=== PATIENT | female | born 1940 | race Caucasian/White ===

== ENCOUNTER 2016-09-26 17:14 | Inpatient (IN) | payer MEDICARE ==
[~2016-09-26] VITALS: Ht 162.6 cm; Wt 70.1 kg
[~2016-09-26 17:14] MED LIST: ACET325T9 PO; ACET500T68 PO; ALBU1.25 NEB; ALBU2.5V5 NEB; ASPI-630 PO; BUDE0.5A11 NEB; BUDE10.2 IH; BUSP10TA PO; BUSP15TA PO; CHOL500016 PO; CITA40TA5 PO; CLON0.5T3 PO; FLUT16SP21 NS; LISI-334 PO; LORA0.5T PO; MAG30ORA PO; MAGN2400 PO; MELA3TAB2 PO; METH57CR8 TP; MULT1TAB52 PO; OLAN2.5T5 PO; OLAN5TAB5 PO; OMEP20CA9 PO; PANT40TA5 PO; POLY17PO3 PO; QUET25TA5 PO; SERT100T8 PO; TIOT18CA IH
--- NOTE | 2016-09-26 17:27 | ED.ADGEN ---
Past History Past Medical History: Anxiety, Asthma, CHF, COPD, Dementia, Depression, GERD, Hypertension, Other Past Surgical History: Tonsillectomy Smoking: Quit Greater Than 1 Year Alcohol Use: None Drug Use: None Adult General Chief Complaint Chief Complaint Anxiety HPI HPI Patient is a 75 year old female who presents with. She came from [facility] where she's been having some anxiety. She's been excepted as a [facility] unit if she doesn't have any lab abnormalities or other concerns on her exam. She states she has a history of anxiety and she was here in July and was able to then a couple weeks and have her medications adjusted and was discharged. She states the last several weeks she's been having more anxiety. She denies any fevers chills nausea vomiting or cough. She does wear oxygen 24 hours a day as of her COPD. She presents today with her daughter. Review of Systems Review of Systems Constitutional: Denies fever or chills [] Eyes: Denies change in visual acuity, redness, or eye pain [] HENT: Denies nasal congestion or sore throat [] Respiratory: Denies cough or shortness of breath [] Cardiovascular: No additional information not addressed in HPI [] GI: Denies abdominal pain, nausea, vomiting, bloody stools or diarrhea [] : Denies dysuria or hematuria [] Musculoskeletal: Denies back pain or joint pain [] Integument: Denies rash or skin lesions [] Neurologic: Denies headache, focal weakness or sensory changes [] Endocrine: Denies polyuria or polydipsia [] Allergies Allergies Allergies Coded Allergies Type Severity Reaction Last Updated Verified adhesive tape Allergy Intermediate 07/29/16 Yes doxycycline Allergy Intermediate 07/29/16 Yes fexofenadine Allergy Intermediate 07/29/16 Yes hydrochlorothiazide Allergy Intermediate 07/29/16 Yes iodine Allergy Intermediate 07/29/16 Yes ipratropium Allergy Intermediate 07/29/16 Yes levofloxacin Allergy Intermediate 07/29/16 Yes loratadine Allergy Intermediate 07/29/16 Yes piperacillin Allergy Intermediate 07/29/16 Yes sulfadiazine Allergy Intermediate 07/29/16 Yes tazobactam Allergy Intermediate 07/29/16 Yes Physical Exam Physical Exam Constitutional: Well developed, well nourished, no acute distress, non-toxic appearance. [] HENT: Normocephalic, atraumatic, bilateral external ears normal, oropharynx moist, no oral exudates, nose normal. [] Eyes: PERRLA, EOMI, conjunctiva normal, no discharge. [] Neck: Normal range of motion, no tenderness, supple, no stridor. [] Cardiovascular:Heart rate regular rhythm, no murmur [] Lungs & Thorax: Bilateral breath sounds clear to auscultation [] Abdomen: Bowel sounds normal, soft, no tenderness, no masses, no pulsatile masses. [] Skin: Warm, dry, no erythema, no rash. [] Back: No tenderness, no CVA tenderness. [] Extremities: No tenderness, no cyanosis, no clubbing, ROM intact, no edema. [] Neurologic: Alert and interactive, normal motor function, normal sensory function, no focal deficits noted. [] EKG EKG [] Radiology/Procedures Radiology/Procedures [] Course & Med Decision Making Course & Med Decision Making Pertinent Labs and Imaging studies reviewed. (See chart for details) Patient is being checked at Dr. Clayton, labs, x-ray, EKG are pending at this time. Final Impression Final Impression Anxiety Problems: Dragon Disclaimer Dragon Disclaimer This electronic medical record was generated, in whole or in part, using a voice recognition dictation system. MELLISA ALAS MD September 26, 2016 17:27
--- NOTE | 2016-09-26 17:55 | EKG ---
[address] [address] Test Date: 2016-09-26 Test Time: 17:53:44 Pat Name: LEONARDO RIVERA Department: Room: Gender: F Hotel Valet Attendant: : 1940 Requested By: MELLISA ALAS Order Number: [id number] Reading MD: Pierre Hand Measurements Intervals [place] Rate: 83 P: 90 MT: 130 QRS: 20 QRSD: 84 T: 26 QT: 374 QTc: 445 Interpretive Statements SINUS RHYTHM Electronically Signed On 09-28-2016 10:25:31 CDT by Pierre Hand
[2016-09-26 18:33] LABS: BASO % 0 % (0-3); EOS # 0.1 x10^3/uL (0.0-0.7); EOS % 1 % (0-3); HEMATOCRIT 33.6 % (36.0-47.0); HEMOGLOBIN 10.8 g/dL (12.0-15.5); LYMPH % 18 % (24-48); MEAN CORPUSCULAR HEMOGLOBIN 28 pg (25-35); MEAN CORPUSCULAR HGB CONC 32 g/dL (31-37); MEAN CORPUSCULAR VOLUME 86 fL (79-100); MONO % 9 % (0-9); NEUT # 8.1 x10^3uL (1.8-7.7); NEUT % 72 % (31-73); PLATELET COUNT 428 x10^3/uL (140-400); RED BLOOD COUNT 3.93 x10^6/uL (3.50-5.40); RED CELL DISTRIBUTION WIDTH 14.5 % (11.5-14.5); WHITE BLOOD COUNT 11.2 x10^3/uL (4.0-11.0)
[2016-09-26 18:41] LABS: ALBUMIN 3.6 g/dL (3.4-5.0); ALBUMIN/GLOBULIN RATIO 1.3 (1.0-1.7); CALCIUM 8.5 mg/dL (8.5-10.1); CREATININE 0.7 mg/dL (0.6-1.0); GFR 81.1; MAGNESIUM 2.1 mg/dL (1.8-2.4); POTASSIUM 4.7 mmol/L (3.5-5.1); TOTAL BILIRUBIN 0.3 mg/dL (0.2-1.0); TOTAL PROTEIN 6.4 g/dL (6.4-8.2)
[2016-09-26 21:01] LABS: CLARITY,URINE CLEAR; COLOR,URINE STRAW
[2016-09-26 21:02] LABS: BACTERIA,URINE 0 /HPF (0-FEW); BILIRUBIN,URINE NEG (NEG); GLUCOSE,URINE NEG (NEG); NITRITE,URINE NEG (NEG); SQUAMOUS EPITHELIAL CELL,UR OCC /LPF; UROBILINOGEN,URINE 0.2 mg/dL (0.2 mg/dL); WBC,URINE OCC /HPF (0-4)
[2016-09-26 21:05] LABS: AMPHETAMINE/METHAMPHETAMINE NEG (NEG); BARBITURATES NEG (NEG); BENZODIAZEPINES NEG (NEG); CANNABINOIDS NEG (NEG); COCAINE NEG (NEG); METHADONE NEG (NEG); OPIATES NEG (NEG); PHENCYCLIDINE NEG (NEG)
[2016-09-26] MEDS ORDERED: ACETAMINOPHEN 325 MG TABLET PO PRN ×2 (21:15→23:30)
--- NOTE | 2016-09-26 21:36 | ACF ---
Admission Criteria Forms PSYCHIATRIC DISORDERS Clinical Indications for Inpatient Care (Place 'X' for any and all applicable criteria): Ongoing inpatient care may be needed for ANY ONE of the following(1)(2)(3)(4)(6) (7)(8): [ ]I. Danger to self or others not manageable at lower level of care. [ ]II. Grave disability (eg, inability to perform self care necessary at lower level of care) [ ]III. Agitation or inappropriate behavior interfering with care for primary condition (eg, attempting to discontinue lines or drains prematurely, unable to cooperate with respiratory care) [X ]IV. Severe disability or disorder indicated by ALL of the following: [X ]a) Severe behavioral health disorder-related symptoms or condition indicated by ANY ONE of the following: [ ]i) Severe problem with cognition, memory, judgment, or impulse control [X ]ii) Severe clinical manifestations (eg, hallucinations , delusions, other acute psychotic symptoms, nick, extreme agitation or anxiety) [X ]b) Patient management at lower level of care is not feasible until acute intervention or modification is initiated. Extended stay beyond goal length of stay for the primary condition may be indicated when ANY ONE of the following is present: (1)(2)(3)(4): [ ]a) Patient is a danger to self or others and not manageable at lower level of care. [ ]b) Behavior crisis management, including physical or chemical restraints, is required and is not available at a lower level of care. [ ]c) Behavioral symptoms (e.g., agitation, somnolence, inappropriate behavior) are present, and are not manageable at a lower level of care. [ ]d) Patient cannot understand follow-up treatment and crisis plan. [ ]e) Provider and supports are not sufficiently available at lower level of care. [ ]f) Patient cannot participate (e.g., verify absence of plan for harm) and is in needed of monitoring. The original [facility] [employer] content created by [facility] [employer] has been revised. The portions of the content which have been revised are identified through the use of italic text or in bold, and [facility] has neither reviewed nor approved the modified material. All other unmodified content is copyright [facility]. Please see references footnoted in the original [facility] edition 2016 Admission Criteria Met?: Yes LAVELL CARABALLO September 26, 2016 21:36
[2016-09-26] MEDS ORDERED: GUAI600T47 PO (23:03)
[2016-09-26] MEDS ORDERED: QUET100T PO (23:05)
[2016-09-26] MEDS ORDERED: QUET50TA PO (23:06)
[2016-09-26] MEDS ORDERED: FLUT1DIS5 IH (23:14)
[2016-09-26] MEDS ORDERED: MAGNESIUM HYDROXIDE 2,400 MG/30 ML ORAL.SUSP. PO PRN ×2 (23:30→23:45)
[2016-09-26] MEDS ORDERED: MAG HYDROX/AL HYDROX/SIMETH 30 ML ORAL.SUSP PO PRN (23:30)
[2016-09-26] MEDS ORDERED: METHYL SALICYLATE/MENTHOL TOPICAL OINTMENT 29GM TUBE. TP PRN ×2 (23:45)
[2016-09-26 23:55] VITALS: BP 109/79
[2016-09-27] MEDS: LORazepam 0.5 MG TABLET PO PRN ×3 (00:06→14:40)
[2016-09-27] MEDS: ACETAMINOPHEN 325 MG TABLET PO PRN (00:06)
[2016-09-27] MEDS: ALBUTEROL SULFATE 2.5 MG/3 ML NEBU. NEB PRN ×2 (00:27→05:24)
[2016-09-27 06:33] VITALS: BP 159/63
[2016-09-27] MEDS: busPIRone 10 MG TABLET. PO SCH ×3 (07:56→20:06)
[2016-09-27] MEDS: CHOLECALCIFEROL (VITAMIN D3) 1,000 UNIT TABLET PO SCH (07:56)
[2016-09-27] MEDS: MULTIVITAMIN with MINERAL TABLET. PO SCH (07:57)
[2016-09-27] MEDS: LISINOPRIL 20 MG TABLET PO SCH (07:57)
[2016-09-27] MEDS: ASPIRIN 81 MG TAB.CHEW PO SCH (07:57)
[2016-09-27] MEDS: QUEtiapine 50 MG TABLET. PO SCH ×3 (07:57→18:47)
[2016-09-27] MEDS: POLYETHYLENE GLYCOL 3350 17 GM PACKET. PO SCH (07:58)
--- NOTE | 2016-09-27 08:20 | RAD ---
Portable chest, 09/26/2016: History: Cough Comparison is made to a study from 08/07/2016. The heart size and pulmonary vascularity are within normal limits. There is calcific plaquing of the aorta. There is mild linear atelectasis or scarring in the left base. No pulmonary consolidation is seen. There is no evidence of pleural fluid. IMPRESSION: Mild left basilar linear atelectasis or scarring.
[2016-09-27] MEDS ORDERED: NON FORMULARY ITEM (Albuterol Sulfate (Albuterol Sulfate Neb Soln) 2.5 MG) NEB SCH (09:00)
[2016-09-27] MEDS: BUDESONIDE 0.5 MG/2 ML NEBU NEB SCH ×2 (10:14→21:00)
[2016-09-27] MEDS: ALBUTEROL SULFATE 2.5 MG/3 ML NEBU. NEB SCH ×3 (10:15→20:00)
--- NOTE | 2016-09-27 13:16 | HP ---
ADMIT DATE: 09/27/2016 MEDICAL HISTORY AND PHYSICAL FOR THE [facility] REASON FOR ADMISSION TO THE [facility]: This is a 75-year-old female who just had a recent admit in July 2016 to the [facility]. At this time, she states that she has had increasing anxiety and without any relief. She had stated to the staff that she wished that she would choke on her oxygen tubing. PAST MEDICAL HISTORY: Recent admission to the [facility] in July 2016 for increasing anxiety, delusions, hallucinations, delusions of persecution. Other medical problems include chronic hypoxemic respiratory failure, hypertension, COPD, congestive heart failure, reflux, insomnia, asthma, constipation, frequent falls. PAST SURGICAL HISTORY: Bilateral cataract extraction and correction of a very droopy left eyelid. ALLERGIES: Multiple allergies. ADHESIVE TAPE, DOXYCYCLINE, FEXOFENADINE, HYDROCHLOROTHIAZIDE, IODINE, IPRATROPIUM, LEVOFLOXACIN, LORATADINE, PIPERACILLIN, SULFADIAZINE, TAZOBACTAM. MEDICATIONS: Reviewed and are available on the JUL. She is on significant doses of Seroquel and was just recently on a prednisone taper and is finishing the prednisone taper today. SOCIAL HISTORY: She is a . She lives in a [facility] home. She has 3 children. She used to smoke 1-1/2 packs per day, quit 15 years ago. Denies alcohol use. Used to own a beauty shop. REVIEW OF SYSTEMS: With the exception of anxiety, the patient states the rest of her problems are chronic and not new. She does suffer from occasional constipation. OBJECTIVE: VITAL SIGNS: Blood pressure 159/63, pulse 75, temperature 97.8, O2 sat is 100% on 2 liters. She also had 85% on 2 liters yesterday evening, weight is 160 pounds. GENERAL: A 75-year-old, in no acute distress. HEENT: Her TMs were intact without erythema. Her nose was patent. Her throat was clear. Her eyes were clear and she has evidence of the cataract surgery. NECK: Supple, without adenopathy. There are no carotid bruits. Tongue was midline. Throat was clear. LUNGS: Clear inspiratory and expiratory. CARDIOVASCULAR: Regular rhythm and rate. ABDOMEN: Soft and nontender. EXTREMITIES: Mild edema. MUSCULOSKELETAL: The patient is able to stand, but does not pass to get up and go test. NEUROLOGIC: Cranial nerves were intact. She did follow directions. Mental status, calm and cooperative, fairly good historian. In a short interview, she does not give the impression of having dementia. Reflexes 2+/4. LABORATORY DATA: White blood cell count still slightly elevated at 11.2, hemoglobin 10.8, hematocrit 33.6. Troponin is normal. CO2 slightly elevated. Urinalysis is negative. Drug screen negative. ASSESSMENT: 1. A 75-year-old with severe anxiety 2. Recent prednisone taper, possibly contributing to severe anxiety and nervousness. 3. Chronic hypoxemic respiratory failure. 4. Chronic obstructive pulmonary disease. 5. Hypertension. 6. History of congestive heart failure. 7. Reflux. 8. Asthma. 9. Constipation. 10. History of falls. 11. Recent admit to psych in July. PLAN: Follow along with Dr. Farrar and treat her medical conditions. MIGUEL BOSS DO DR: JAROD/jacqueline JOB#: [id number] / [id number]
[2016-09-27 16:01] VITALS: BP 125/66
[2016-09-27 17:08] LABS: T3 TOTAL 68 ng/dL (71-180)
[2016-09-27] MEDS: PANTOPRAZOLE 40 MG TABLET. PO SCH (20:06)
[2016-09-27] MEDS: FLUTICASONE 50MCG/NASAL SPRAY 16GM BOTTLE. NS SCH (20:06)
[2016-09-27] MEDS: QUEtiapine 100 MG TABLET. PO SCH (20:06)
[2016-09-27] MEDS: MELATONIN 3 MG TABLET PO SCH (20:06)
[2016-09-27] MEDS: SERTRALINE 100 MG TABLET. PO SCH (20:07)
[2016-09-27] MEDS ORDERED: MIRTAZAPINE 7.5 MG TABLET. PO SCH (21:00)
--- NOTE | 2016-09-27 21:23 | PDOC ---
Exam Maciel Demential Exam: Maciel Note: Please also refer to the separate dictated note~for this date of service dictated separately.~Patient seen individually. Discussed the patient with Nursing staff reviewed the chart.~Reviewed interim history and current functioning. Reviewed vital signs,~Labs/ Radiology~and current medications noted below. Continue current treatment with the changes noted in the dictated addendum note Assessment: Vital Signs: Vital Signs Date Time Temp Pulse Resp B/P Pulse Ox O2 Delivery O2 Flow Rate FiO2 09/27/16 16:01 98.1 82 18 125/66 98 2.0 09/27/16 15:59 Nasal Cannula I&O Intake and Output 09/27/16 07:00 # Voids 1 Current Medications: Meds: Current Medications Acetaminophen (Tylenol) 650 mg PRN Q6HRS PRN PO PAIN / TEMP; Start 09/26/16 at 21:15; Status Cancel Guaifenesin (Mucinex Er) 600 mg BID PO Last administered on 09/27/16 20:06; Start 09/27/16 at 09:00 Acetaminophen (Tylenol) 650 mg PRN Q6HRS PRN PO MILD PAIN/TEMP Last administered on 09/27/16 00:06; Start 09/26/16 at 23:30 Buspirone HCl (Buspar) 15 mg TID PO Last administered on 09/27/16 20:06; Start 09/27/16 at 09:00 Lorazepam (Ativan) 0.25 mg PRN Q2HR PRN PO ANXIETY/AGITATION Last administered on 09/27/16 14:40; Start 09/26/16 at 23:30 Melatonin 6 mg QHS PO Last administered on 09/27/16 20:06; Start 09/27/16 at 21: 00 Olanzapine (Zyprexa Zydis) 1.25 mg PRN Q2HR PRN PO PSYCHOSIS; Start 09/26/16 at 23:30 Quetiapine Fumarate (SEROquel) 100 mg HS PO Last administered on 09/27/16 20:06 ; Start 09/27/16 at 21:00 Sertraline HCl (Zoloft) 100 mg HS PO Last administered on 09/27/16 20:07; Start 09/27/16 at 21:00 Al Hydroxide/Mg Hydroxide (Mylanta Plus Xs) 15 ml PRN AFTMEALHC PRN PO DYSPEPSIA; Start 09/26/16 at 23:30 Magnesium Hydroxide (Milk Of Magnesia) 2,400 mg PRN QHS PRN PO CONSTIPATION; Start 09/26/16 at 23:45 Multi-Ingredient Ointment (Analgesic [place]) 1 jeb PRN QID PRN TP MUSCLE PAIN; Start 09/26/16 at 23:45; Stop 09/26/16 at 23:45; Status DC Quetiapine Fumarate (SEROquel) 50 mg [id number] PO Last administered on 09/27/16 18 :47; Start 09/27/16 at 07:00 Multi-Ingredient Ointment (Analgesic [place]) 1 jeb PRN QID PRN TP MUSCLE PAIN; Start 09/26/16 at 23:45 Acetaminophen (Tylenol) 650 mg PRN Q6HRS PRN PO PAIN / TEMP; Start 09/26/16 at 23:30; Status UNV Al Hydroxide/Mg Hydroxide (Mylanta Plus Xs) 15 ml PRN AFTMEALHC PRN PO DYSPEPSIA; Start 09/26/16 at 23:30; Status UNV Magnesium Hydroxide (Milk Of Magnesia) 2,400 mg PRN QHS PRN PO CONSTIPATION; Start 09/26/16 at 23:30; Status UNV Albuterol Sulfate (Ventolin) 2.5 mg PRN Q6HRS PRN NEB COPD Last administered on 09/27/16 05:24; Start 09/27/16 at 00:00 Aspirin (Children'S Aspirin) 81 mg DAILY PO Last administered on 09/27/16 07:57 ; Start 09/27/16 at 09:00 Budesonide (Pulmicort) 0.5 mg BID NEB Last administered on 09/27/16 10:14; Start 09/27/16 at 09:00 Fluticasone Propionate (Flonase) 2 spray QHS NS Last administered on 09/27/16 20:06; Start 09/27/16 at 21:00 Lisinopril (Prinivil) 20 mg DAILY PO Last administered on 09/27/16 07:57; Start 09/27/16 at 09:00 Pantoprazole Sodium (Protonix) 40 mg QHS PO Last administered on 09/27/16 20:06 ; Start 09/27/16 at 21:00 Polyethylene Glycol (miraLAX) 17 gm DAILY PO Last administered on 09/27/16 07: 58; Start 09/27/16 at 09:00 Non-Formulary Medication 2.5 mg QID NEB COPD; Start 09/27/16 at 09:00; Stop at 09:00; Status DC Vitamin D (Vitamin D3) 5,000 unit DAILY PO Last administered on 09/27/16 07:56 ; Start 09/27/16 at 09:00 Multivitamins/ Calcium (Thera-M Plus) 1 tab DAILY PO Last administered on 07:57; Start 09/27/16 at 09:00 Albuterol Sulfate (Ventolin) 2.5 mg RTQID NEB Last administered on 09/27/16 15: 58; Start 09/27/16 at 08:00 Mirtazapine (Remeron) 7.5 mg QHS PO Last administered on 09/27/16 20:07; Start 09/27/16 at 21:00 Active Scripts Active Reported Advair 500-50 Diskus (Fluticasone/Salmeterol) 1 Each Disk.w.dev 1 Each IH BID LAST DOSE GIVEN: DATE: TIME: NEXT DOSE DUE: DATE: TIME: Quetiapine Fumarate 50 Mg Tablet 50 Mg PO [id number] Quetiapine Fumarate 100 Mg Tablet 100 Mg PO HS Mucinex (Guaifenesin) 600 Mg Tablet.er 1 Tab PO BID Buspirone Hcl 10 Mg Tablet 15 Mg PO TID Sertraline Hcl 100 Mg Tablet 100 Mg PO HS Pantoprazole Sodium 40 Mg Tablet.dr 40 Mg PO QHS Zyprexa Zydis (Olanzapine) 5 Mg Tab.rapdis 1.25 Mg PO PRN Q2HR PRN Max dose: 7.5mg/24hrs [place] Ultra Strength Crm (Methyl Salicylate/Menth/Camph) 57 Gm Cream..g. 1 Applic TP PRN QID PRN Milk Of Magnesia (Magnesium Hydroxide) 2,400 Mg/10 Ml Oral.susp 2,400 Mg PO PRN QHS PRN Mag-Al Plus Suspension (Mag Hydrox/Al Hydrox/Simeth) 30 Ml Oral.susp 15 Ml PO PRN AFTMEALHC PRN Lorazepam 0.5 Mg Tablet 0.25 Mg PO PRN Q2HR PRN Budesonide 0.5 Mg/2 Ml Ampul.neb 0.5 Mg NEB BID Albuterol Sulfate Neb Soln (Albuterol Sulfate) 2.5 Mg/3 Ml Vial.neb 2.5 Mg NEB PRN Q6HRS PRN Tylenol (Acetaminophen) 325 Mg Tablet 650 Mg PO PRN Q6HRS PRN Polyethylene Glycol 3350 17 Gm Powd.pack 17 Gm PO DAILY Melatonin 3 Mg Tablet 6 Mg PO QHS Lisinopril 20 Mg Tablet 20 Mg PO DAILY Fluticasone Propionate Nasal [place] (Fluticasone Propionate) 16 Gm [place].susp 2 [place] NS QHS Multivitamins (Multivitamin) 1 Each Tablet 1 Each PO DAILY Vitamin D3 (Cholecalciferol (Vitamin D3)) 5,000 Unit Tablet 5,000 Unit PO DAILY Aspirin 81 Mg Tab.chew 81 Mg PO DAILY Albuterol Sulfate Neb Soln (Albuterol Sulfate) 1.25 Mg/3 Ml Vial.neb 2.5 Mg NEB QID Diagnosis: Problems: (1) Dementia with behavioral disturbance (2) Major depressive disorder (3) Anxiety disorder (4) Dementia in Alzheimer's disease with delusions (5) Dementia in Alzheimer's disease with depression (6) Impulse control disorder CHARLINE VASQUEZ MD September 27, 2016 21:23
[2016-09-28 04:13] LABS: HEMOGLOBIN A1C 5.4 % (4.8-5.6)
[2016-09-28] MEDS: QUEtiapine 50 MG TABLET. PO SCH ×3 (05:22→17:10)
[2016-09-28] MEDS: ALBUTEROL SULFATE 2.5 MG/3 ML NEBU. NEB SCH ×4 (05:45→20:55)
[2016-09-28 06:34] VITALS: BP 158/98
[2016-09-28] MEDS: LISINOPRIL 20 MG TABLET PO SCH (08:44)
[2016-09-28] MEDS: ASPIRIN 81 MG TAB.CHEW PO SCH (08:44)
[2016-09-28] MEDS: MULTIVITAMIN with MINERAL TABLET. PO SCH (08:44)
[2016-09-28] MEDS: busPIRone 10 MG TABLET. PO SCH ×3 (08:44→20:50)
[2016-09-28] MEDS: POLYETHYLENE GLYCOL 3350 17 GM PACKET. PO SCH (08:45)
[2016-09-28] MEDS: CHOLECALCIFEROL (VITAMIN D3) 1,000 UNIT TABLET PO SCH (08:45)
[2016-09-28] MEDS: BUDESONIDE 0.5 MG/2 ML NEBU NEB SCH ×2 (10:28→20:55)
[2016-09-28] MEDS: LORazepam 0.5 MG TABLET PO PRN ×2 (13:01→17:59)
--- NOTE | 2016-09-28 13:16 | HP ---
ADMIT DATE: 09/27/2016 PSYCHIATRIC ADMISSION HISTORY This is a late entry for 09/27/2016. IDENTIFYING DATA: The patient is a 75-year-old female who is referred back to us from [facility] on account of increasing anxiety, making statements that she is "shaking inside" and making statements that she wished she" would get choked with oxygen tubing." The patient has been inpatient here in the past. The patient seen individually, discussed with nursing staff, reviewed current past records. HISTORY OF PRESENT ILLNESS: The patient has a history of major depressive disorder with worsening symptoms of depression, anxiety, irritability, mood lability, sleep and appetite changes while residing at [facility], worsening over the last 3-4 days. She minimizes the suicidal ideation, no homicidal ideation. She has had some mood swings, but no clear symptoms reflective of bipolar disorder. She has also had some short term memory deficits. PAST PSYCHIATRIC HISTORY: Positive for depression, panic disorder, anxiety disorder, impulse control disorder, cognitive disorder versus early dementia. CURRENT PSYCHOTROPICS: Melatonin 6 mg at bedtime, Zoloft 100 mg a day, BuSpar 15 mg t.i.d., Seroquel 100 mg at bedtime and 50 mg t.i.d., Ativan 0.5 to 1 mg q.6h. p.r.n. DIET: Regular. Takes the medications whole. ALLERGIES: ADHESIVE TAPE, CARMENZA, CLARITIN, DOXYCYCLINE, HYDROCHLOROTHIAZIDE, IODINE, IPRATROPIUM BROMIDE, LEVOFLOXACIN, SULFADIAZINE, ZINC OXIDE, ZOSYN. PAST MEDICAL HISTORY: GERD, dry eyes, vitamin D deficiency, cataracts, chronic constipation, hypertension, CHF, COPD. FAMILY HISTORY: Noncontributory. SOCIAL HISTORY: No alcohol, drug abuse, physical, sexual or elder abuse history is noted. She is not known to be a perpetrator. MENTAL STATUS EXAMINATION: The patient was seen individually evening of 09/27/2016. She readily recognized me. Oriented to herself and situation. Speech has some latency, coherent. Mood and affect is depressed. She minimizes suicidal ideation and admits to feeling extremely anxious. Attention span short. Short term memory is impaired. Intellect average. Insight somewhat limited, judgment marginal. Vitals are noted in my initial note. IMPRESSION: Major depressive disorder, recurrent, severe with rule out psychotic features; anxiety disorder, unspecified; cognitive disorder, unspecified versus major neurocognitive disorder, vascular with depression. Rest diagnoses as above. PLAN: Admit to the Geropsychiatry unit at [facility]. The patient slept zero hours previous night. We will start her on Remeron 7.5 mg at bedtime. I will see her daily individually from a psychiatric standpoint. Medical followup with Dr. Daniels/Dr. Todd. Continue Ativan p.r.n. Make further adjustments as clinically indicated. MAN Ino VASQUEZ MD DR: KHUSHBOO/jacqueline JOB#: [id number] / [id number]
[2016-09-28 15:49] VITALS: BP 119/54
[2016-09-28] MEDS: PANTOPRAZOLE 40 MG TABLET. PO SCH (20:50)
[2016-09-28] MEDS: QUEtiapine 100 MG TABLET. PO SCH (20:50)
[2016-09-28] MEDS: MELATONIN 3 MG TABLET PO SCH (20:50)
[2016-09-28] MEDS: SERTRALINE 100 MG TABLET. PO SCH (20:50)
[2016-09-28] MEDS: MIRTAZAPINE 15 MG TABLET PO SCH (20:53)
[2016-09-28] MEDS: FLUTICASONE 50MCG/NASAL SPRAY 16GM BOTTLE. NS SCH (20:56)
--- NOTE | 2016-09-28 21:10 | PDOC ---
Exam Maciel Demential Exam: Maciel Note: Please also refer to the separate dictated note~for this date of service dictated separately.~Patient seen individually. Discussed the patient with Nursing staff reviewed the chart.~Reviewed interim history and current functioning. Reviewed vital signs,~Labs/ Radiology~and current medications noted below. Continue current treatment with the changes noted in the dictated addendum note Assessment: Vital Signs: Vital Signs Date Time Temp Pulse Resp B/P Pulse Ox O2 Delivery O2 Flow Rate FiO2 09/28/16 21:00 98 Nasal Cannula 2.0 09/28/16 15:49 97.9 91 17 119/54 I&O Intake and Output 09/28/16 07:00 Intake Total 1280 ml Balance 1280 ml Intake Oral 1280 ml # Voids 1 Current Medications: Meds: Current Medications Acetaminophen (Tylenol) 650 mg PRN Q6HRS PRN PO PAIN / TEMP; Start 09/26/16 at 21:15; Status Cancel Guaifenesin (Mucinex Er) 600 mg BID PO Last administered on 09/28/16 20:50; Start 09/27/16 at 09:00 Acetaminophen (Tylenol) 650 mg PRN Q6HRS PRN PO MILD PAIN/TEMP Last administered on 09/27/16 00:06; Start 09/26/16 at 23:30 Buspirone HCl (Buspar) 15 mg TID PO Last administered on 09/28/16 20:50; Start 09/27/16 at 09:00 Lorazepam (Ativan) 0.25 mg PRN Q2HR PRN PO ANXIETY/AGITATION Last administered on 09/28/16 17:59; Start 09/26/16 at 23:30 Melatonin 6 mg QHS PO Last administered on 09/28/16 20:50; Start 09/27/16 at 21: 00 Olanzapine (Zyprexa Zydis) 1.25 mg PRN Q2HR PRN PO PSYCHOSIS Last administered on 09/28/16 17:59; Start 09/26/16 at 23:30 Quetiapine Fumarate (SEROquel) 100 mg HS PO Last administered on 09/28/16 20:50 ; Start 09/27/16 at 21:00 Sertraline HCl (Zoloft) 100 mg HS PO Last administered on 09/28/16 20:50; Start 09/27/16 at 21:00 Al Hydroxide/Mg Hydroxide (Mylanta Plus Xs) 15 ml PRN AFTMEALHC PRN PO DYSPEPSIA; Start 09/26/16 at 23:30 Magnesium Hydroxide (Milk Of Magnesia) 2,400 mg PRN QHS PRN PO CONSTIPATION; Start 09/26/16 at 23:45 Multi-Ingredient Ointment (Analgesic [place]) 1 jeb PRN QID PRN TP MUSCLE PAIN; Start 09/26/16 at 23:45; Stop 09/26/16 at 23:45; Status DC Quetiapine Fumarate (SEROquel) 50 mg [id number] PO Last administered on 09/28/16 17 :10; Start 09/27/16 at 07:00 Multi-Ingredient Ointment (Analgesic [place]) 1 jeb PRN QID PRN TP MUSCLE PAIN; Start 09/26/16 at 23:45 Acetaminophen (Tylenol) 650 mg PRN Q6HRS PRN PO PAIN / TEMP; Start 09/26/16 at 23:30; Status UNV Al Hydroxide/Mg Hydroxide (Mylanta Plus Xs) 15 ml PRN AFTMEALHC PRN PO DYSPEPSIA; Start 09/26/16 at 23:30; Status UNV Magnesium Hydroxide (Milk Of Magnesia) 2,400 mg PRN QHS PRN PO CONSTIPATION; Start 09/26/16 at 23:30; Status UNV Albuterol Sulfate (Ventolin) 2.5 mg PRN Q6HRS PRN NEB COPD Last administered on 09/27/16 05:24; Start 09/27/16 at 00:00 Aspirin (Children'S Aspirin) 81 mg DAILY PO Last administered on 09/28/16 08:44 ; Start 09/27/16 at 09:00 Budesonide (Pulmicort) 0.5 mg BID NEB Last administered on 09/28/16 20:55; Start 09/27/16 at 09:00 Fluticasone Propionate (Flonase) 2 spray QHS NS Last administered on 09/28/16 20:56; Start 09/27/16 at 21:00 Lisinopril (Prinivil) 20 mg DAILY PO Last administered on 09/28/16 08:44; Start 09/27/16 at 09:00 Pantoprazole Sodium (Protonix) 40 mg QHS PO Last administered on 09/28/16 20:50 ; Start 09/27/16 at 21:00 Polyethylene Glycol (miraLAX) 17 gm DAILY PO Last administered on 09/28/16 08: 45; Start 09/27/16 at 09:00 Non-Formulary Medication 2.5 mg QID NEB COPD; Start 09/27/16 at 09:00; Stop at 09:00; Status DC Vitamin D (Vitamin D3) 5,000 unit DAILY PO Last administered on 09/28/16 08:45 ; Start 09/27/16 at 09:00 Multivitamins/ Calcium (Thera-M Plus) 1 tab DAILY PO Last administered on 08:44; Start 09/27/16 at 09:00 Albuterol Sulfate (Ventolin) 2.5 mg RTQID NEB Last administered on 09/28/16 20: 55; Start 09/27/16 at 08:00 Mirtazapine (Remeron) 7.5 mg QHS PO Last administered on 09/27/16 20:07; Start 09/27/16 at 21:00; Stop 09/28/16 at 18:50; Status DC Mirtazapine (Remeron) 15 mg QHS PO Last administered on 09/28/16 20:53; Start 09/28/16 at 21:00 Active Scripts Active Reported Advair 500-50 Diskus (Fluticasone/Salmeterol) 1 Each Disk.w.dev 1 Each IH BID LAST DOSE GIVEN: DATE: TIME: NEXT DOSE DUE: DATE: TIME: Quetiapine Fumarate 50 Mg Tablet 50 Mg PO [id number] Quetiapine Fumarate 100 Mg Tablet 100 Mg PO HS Mucinex (Guaifenesin) 600 Mg Tablet.er 1 Tab PO BID Buspirone Hcl 10 Mg Tablet 15 Mg PO TID Sertraline Hcl 100 Mg Tablet 100 Mg PO HS Pantoprazole Sodium 40 Mg Tablet.dr 40 Mg PO QHS Zyprexa Zydis (Olanzapine) 5 Mg Tab.rapdis 1.25 Mg PO PRN Q2HR PRN Max dose: 7.5mg/24hrs [place] Ultra Strength Crm (Methyl Salicylate/Menth/Camph) 57 Gm Cream..g. 1 Applic TP PRN QID PRN Milk Of Magnesia (Magnesium Hydroxide) 2,400 Mg/10 Ml Oral.susp 2,400 Mg PO PRN QHS PRN Mag-Al Plus Suspension (Mag Hydrox/Al Hydrox/Simeth) 30 Ml Oral.susp 15 Ml PO PRN AFTMEALHC PRN Lorazepam 0.5 Mg Tablet 0.25 Mg PO PRN Q2HR PRN Budesonide 0.5 Mg/2 Ml Ampul.neb 0.5 Mg NEB BID Albuterol Sulfate Neb Soln (Albuterol Sulfate) 2.5 Mg/3 Ml Vial.neb 2.5 Mg NEB PRN Q6HRS PRN Tylenol (Acetaminophen) 325 Mg Tablet 650 Mg PO PRN Q6HRS PRN Polyethylene Glycol 3350 17 Gm Powd.pack 17 Gm PO DAILY Melatonin 3 Mg Tablet 6 Mg PO QHS Lisinopril 20 Mg Tablet 20 Mg PO DAILY Fluticasone Propionate Nasal [place] (Fluticasone Propionate) 16 Gm [place].susp 2 [place] NS QHS Multivitamins (Multivitamin) 1 Each Tablet 1 Each PO DAILY Vitamin D3 (Cholecalciferol (Vitamin D3)) 5,000 Unit Tablet 5,000 Unit PO DAILY Aspirin 81 Mg Tab.chew 81 Mg PO DAILY Albuterol Sulfate Neb Soln (Albuterol Sulfate) 1.25 Mg/3 Ml Vial.neb 2.5 Mg NEB QID Diagnosis: Problems: (1) Major depressive disorder (2) Dementia with behavioral disturbance (3) Anxiety disorder (4) Dementia in Alzheimer's disease with delusions (5) Dementia in Alzheimer's disease with depression (6) Impulse control disorder CHARLINE VASQUEZ MD September 28, 2016 21:10
[2016-09-29] MEDS: ALBUTEROL SULFATE 2.5 MG/3 ML NEBU. NEB SCH ×4 (05:38→21:10)
[2016-09-29] MEDS: QUEtiapine 50 MG TABLET. PO SCH ×3 (07:00→17:37)
[2016-09-29] MEDS: POLYETHYLENE GLYCOL 3350 17 GM PACKET. PO SCH (08:56)
[2016-09-29] MEDS: CHOLECALCIFEROL (VITAMIN D3) 1,000 UNIT TABLET PO SCH (08:56)
[2016-09-29] MEDS: MULTIVITAMIN with MINERAL TABLET. PO SCH (08:57)
[2016-09-29] MEDS: busPIRone 10 MG TABLET. PO SCH ×3 (08:57→20:00)
[2016-09-29] MEDS: LISINOPRIL 20 MG TABLET PO SCH (08:57)
[2016-09-29] MEDS: ASPIRIN 81 MG TAB.CHEW PO SCH (08:57)
[2016-09-29 10:02] VITALS: BP 145/76
[2016-09-29] MEDS: BUDESONIDE 0.5 MG/2 ML NEBU NEB SCH ×2 (11:21→21:10)
[2016-09-29 13:39] LABS: VAL ACID 3 mcg/mL (50-100)
[2016-09-29 16:01] VITALS: BP 130/55
[2016-09-29] MEDS: QUEtiapine 100 MG TABLET. PO SCH (19:59)
[2016-09-29] MEDS: SERTRALINE 100 MG TABLET. PO SCH (19:59)
[2016-09-29] MEDS: PANTOPRAZOLE 40 MG TABLET. PO SCH (20:00)
[2016-09-29] MEDS: MIRTAZAPINE 15 MG TABLET PO SCH (20:00)
[2016-09-29] MEDS: MELATONIN 3 MG TABLET PO SCH (20:00)
[2016-09-29] MEDS: FLUTICASONE 50MCG/NASAL SPRAY 16GM BOTTLE. NS SCH (20:02)
[2016-09-29] MEDS: DIVALPROEX 125 MG CAP.SPRINK PO SCH (20:02)
--- NOTE | 2016-09-29 20:29 | PDOC ---
Exam Maciel Demential Exam: Maciel Note: Please also refer to the separate dictated note~for this date of service dictated separately.~Patient seen individually. Discussed the patient with Nursing staff reviewed the chart.~Reviewed interim history and current functioning. Reviewed vital signs,~Labs/ Radiology~and current medications noted below. Continue current treatment with the changes noted in the dictated addendum note Assessment: Vital Signs: Vital Signs Date Time Temp Pulse Resp B/P (MAP) Pulse Ox O2 Delivery O2 Flow Rate FiO2 09/29/16 16:27 99 Nasal Cannula 2.0 09/29/16 16:01 97.9 80 18 130/55 (80) I&O Intake and Output 09/29/16 07:00 Intake Total 840 ml Balance 840 ml Intake Oral 840 ml # Voids 1 Labs: Laboratory Tests Test 09/29/16 13:15 Valproic Acid Level 3 mcg/mL (50-100) L Valproic Acid Last Dose Date 09/28/2016 Valproic Acid Last Dose Time 2100 Current Medications: Meds: Current Medications Acetaminophen (Tylenol) 650 mg PRN Q6HRS PRN PO PAIN / TEMP; Start 09/26/16 at 21:15; Status Cancel Guaifenesin (Mucinex Er) 600 mg BID PO Last administered on 09/29/16 20:01; Start 09/27/16 at 09:00 Acetaminophen (Tylenol) 650 mg PRN Q6HRS PRN PO MILD PAIN/TEMP Last administered on 09/27/16 00:06; Start 09/26/16 at 23:30 Buspirone HCl (Buspar) 15 mg TID PO Last administered on 09/29/16 20:00; Start 09/27/16 at 09:00 Lorazepam (Ativan) 0.25 mg PRN Q2HR PRN PO ANXIETY/AGITATION Last administered on 09/28/16 17:59; Start 09/26/16 at 23:30 Melatonin 6 mg QHS PO Last administered on 09/29/16 20:00; Start 09/27/16 at 21: 00 Olanzapine (Zyprexa Zydis) 1.25 mg PRN Q2HR PRN PO PSYCHOSIS Last administered on 09/28/16 17:59; Start 09/26/16 at 23:30 Quetiapine Fumarate (SEROquel) 100 mg HS PO Last administered on 09/29/16 19:59 ; Start 09/27/16 at 21:00 Sertraline HCl (Zoloft) 100 mg HS PO Last administered on 09/29/16 19:59; Start 09/27/16 at 21:00 Al Hydroxide/Mg Hydroxide (Mylanta Plus Xs) 15 ml PRN AFTMEALHC PRN PO DYSPEPSIA; Start 09/26/16 at 23:30 Magnesium Hydroxide (Milk Of Magnesia) 2,400 mg PRN QHS PRN PO CONSTIPATION; Start 09/26/16 at 23:45 Multi-Ingredient Ointment (Analgesic [place]) 1 jeb PRN QID PRN TP MUSCLE PAIN; Start 09/26/16 at 23:45; Stop 09/26/16 at 23:45; Status DC Quetiapine Fumarate (SEROquel) 50 mg [id number] PO Last administered on 09/29/16 17 :37; Start 09/27/16 at 07:00 Multi-Ingredient Ointment (Analgesic [place]) 1 jeb PRN QID PRN TP MUSCLE PAIN; Start 09/26/16 at 23:45 Acetaminophen (Tylenol) 650 mg PRN Q6HRS PRN PO PAIN / TEMP; Start 09/26/16 at 23:30; Status UNV Al Hydroxide/Mg Hydroxide (Mylanta Plus Xs) 15 ml PRN AFTMEALHC PRN PO DYSPEPSIA; Start 09/26/16 at 23:30; Status UNV Magnesium Hydroxide (Milk Of Magnesia) 2,400 mg PRN QHS PRN PO CONSTIPATION; Start 09/26/16 at 23:30; Status UNV Albuterol Sulfate (Ventolin) 2.5 mg PRN Q6HRS PRN NEB COPD Last administered on 09/27/16 05:24; Start 09/27/16 at 00:00 Aspirin (Children'S Aspirin) 81 mg DAILY PO Last administered on 09/29/16 08:57 ; Start 09/27/16 at 09:00 Budesonide (Pulmicort) 0.5 mg BID NEB Last administered on 09/29/16 11:21; Start 09/27/16 at 09:00 Fluticasone Propionate (Flonase) 2 spray QHS NS Last administered on 09/29/16 20:02; Start 09/27/16 at 21:00 Lisinopril (Prinivil) 20 mg DAILY PO Last administered on 09/29/16 08:57; Start 09/27/16 at 09:00 Pantoprazole Sodium (Protonix) 40 mg QHS PO Last administered on 09/29/16 20:00 ; Start 09/27/16 at 21:00 Polyethylene Glycol (miraLAX) 17 gm DAILY PO Last administered on 09/29/16 08: 56; Start 09/27/16 at 09:00 Non-Formulary Medication 2.5 mg QID NEB COPD; Start 09/27/16 at 09:00; Stop at 09:00; Status DC Vitamin D (Vitamin D3) 5,000 unit DAILY PO Last administered on 09/29/16 08:56 ; Start 09/27/16 at 09:00 Multivitamins/ Calcium (Thera-M Plus) 1 tab DAILY PO Last administered on 08:57; Start 09/27/16 at 09:00 Albuterol Sulfate (Ventolin) 2.5 mg RTQID NEB Last administered on 09/29/16 16: 27; Start 09/27/16 at 08:00 Mirtazapine (Remeron) 7.5 mg QHS PO Last administered on 09/27/16 20:07; Start 09/27/16 at 21:00; Stop 09/28/16 at 18:50; Status DC Mirtazapine (Remeron) 15 mg QHS PO Last administered on 09/29/16 20:00; Start 09/28/16 at 21:00 Divalproex Sodium (Depakote Sprinkles) 125 mg BID PO Last administered on 20:02; Start 09/29/16 at 21:00 Active Scripts Active Reported Advair 500-50 Diskus (Fluticasone/Salmeterol) 1 Each Disk.w.dev 1 Each IH BID LAST DOSE GIVEN: DATE: TIME: NEXT DOSE DUE: DATE: TIME: Quetiapine Fumarate 50 Mg Tablet 50 Mg PO [id number] Quetiapine Fumarate 100 Mg Tablet 100 Mg PO HS Mucinex (Guaifenesin) 600 Mg Tablet.er 1 Tab PO BID Buspirone Hcl 10 Mg Tablet 15 Mg PO TID Sertraline Hcl 100 Mg Tablet 100 Mg PO HS Pantoprazole Sodium 40 Mg Tablet.dr 40 Mg PO QHS Zyprexa Zydis (Olanzapine) 5 Mg Tab.rapdis 1.25 Mg PO PRN Q2HR PRN Max dose: 7.5mg/24hrs [place] Ultra Strength Crm (Methyl Salicylate/Menth/Camph) 57 Gm Cream..g. 1 Applic TP PRN QID PRN Milk Of Magnesia (Magnesium Hydroxide) 2,400 Mg/10 Ml Oral.susp 2,400 Mg PO PRN QHS PRN Mag-Al Plus Suspension (Mag Hydrox/Al Hydrox/Simeth) 30 Ml Oral.susp 15 Ml PO PRN AFTMEALHC PRN Lorazepam 0.5 Mg Tablet 0.25 Mg PO PRN Q2HR PRN Budesonide 0.5 Mg/2 Ml Ampul.neb 0.5 Mg NEB BID Albuterol Sulfate Neb Soln (Albuterol Sulfate) 2.5 Mg/3 Ml Vial.neb 2.5 Mg NEB PRN Q6HRS PRN Tylenol (Acetaminophen) 325 Mg Tablet 650 Mg PO PRN Q6HRS PRN Polyethylene Glycol 3350 17 Gm Powd.pack 17 Gm PO DAILY Melatonin 3 Mg Tablet 6 Mg PO QHS Lisinopril 20 Mg Tablet 20 Mg PO DAILY Fluticasone Propionate Nasal [place] (Fluticasone Propionate) 16 Gm [place].susp 2 [place] NS QHS Multivitamins (Multivitamin) 1 Each Tablet 1 Each PO DAILY Vitamin D3 (Cholecalciferol (Vitamin D3)) 5,000 Unit Tablet 5,000 Unit PO DAILY Aspirin 81 Mg Tab.chew 81 Mg PO DAILY Albuterol Sulfate Neb Soln (Albuterol Sulfate) 1.25 Mg/3 Ml Vial.neb 2.5 Mg NEB QID Diagnosis: Problems: (1) Major depressive disorder (2) Dementia with behavioral disturbance (3) Anxiety disorder (4) Dementia in Alzheimer's disease with delusions (5) Dementia in Alzheimer's disease with depression (6) Impulse control disorder CHARLINE VASQUEZ MD September 29, 2016 20:29
[2016-09-30] MEDS: QUEtiapine 50 MG TABLET. PO SCH ×3 (05:43→17:21)
[2016-09-30] MEDS: ALBUTEROL SULFATE 2.5 MG/3 ML NEBU. NEB SCH ×4 (05:48→19:36)
[2016-09-30 06:30] VITALS: BP 181/44
[2016-09-30] MEDS: POLYETHYLENE GLYCOL 3350 17 GM PACKET. PO SCH (09:06)
[2016-09-30] MEDS: ASPIRIN 81 MG TAB.CHEW PO SCH (09:06)
[2016-09-30] MEDS: MULTIVITAMIN with MINERAL TABLET. PO SCH (09:06)
[2016-09-30] MEDS: busPIRone 10 MG TABLET. PO SCH ×3 (09:07→20:04)
[2016-09-30] MEDS: CHOLECALCIFEROL (VITAMIN D3) 1,000 UNIT TABLET PO SCH (09:07)
[2016-09-30] MEDS: LISINOPRIL 20 MG TABLET PO SCH (09:07)
[2016-09-30] MEDS: DIVALPROEX 125 MG CAP.SPRINK PO SCH ×2 (09:07→20:04)
[2016-09-30] MEDS: BUDESONIDE 0.5 MG/2 ML NEBU NEB SCH ×2 (10:22→19:36)
[2016-09-30] MEDS: LORazepam 0.5 MG TABLET PO PRN (15:04)
[2016-09-30 15:54] VITALS: BP 125/50
[2016-09-30] MEDS: PRENATAL MULTIVITAMIN TABLET. PO SCH (17:21)
[2016-09-30] MEDS: FLUTICASONE 50MCG/NASAL SPRAY 16GM BOTTLE. NS SCH (20:04)
[2016-09-30] MEDS: MELATONIN 3 MG TABLET PO SCH (20:04)
[2016-09-30] MEDS: PANTOPRAZOLE 40 MG TABLET. PO SCH (20:04)
[2016-09-30] MEDS: SERTRALINE 100 MG TABLET. PO SCH (20:05)
[2016-09-30] MEDS: QUEtiapine 100 MG TABLET. PO SCH (20:05)
[2016-09-30] MEDS: MIRTAZAPINE 15 MG TABLET PO SCH (20:05)
--- NOTE | 2016-09-30 20:22 | PDOC ---
Exam Maciel Demential Exam: Maciel Note: Please also refer to the separate dictated note~for this date of service dictated separately.~Patient seen individually. Discussed the patient with Nursing staff reviewed the chart.~Reviewed interim history and current functioning. Reviewed vital signs,~Labs/ Radiology~and current medications noted below. Continue current treatment with the changes noted in the dictated addendum note Assessment: Vital Signs: Vital Signs Date Time Temp Pulse Resp B/P (MAP) Pulse Ox O2 Delivery O2 Flow Rate FiO2 09/30/16 19:39 96 Nasal Cannula 2.0 09/30/16 15:54 98.4 86 22 125/50 (75) I&O Intake and Output 09/30/16 07:00 Intake Total 1080 ml Balance 1080 ml Intake Oral 1080 ml # Voids 1 # Bowel Movements 2 Current Medications: Meds: Current Medications Acetaminophen (Tylenol) 650 mg PRN Q6HRS PRN PO PAIN / TEMP; Start 09/26/16 at 21:15; Status Cancel Guaifenesin (Mucinex Er) 600 mg BID PO Last administered on 09/30/16 20:04; Start 09/27/16 at 09:00 Acetaminophen (Tylenol) 650 mg PRN Q6HRS PRN PO MILD PAIN/TEMP Last administered on 09/27/16 00:06; Start 09/26/16 at 23:30 Buspirone HCl (Buspar) 15 mg TID PO Last administered on 09/30/16 20:04; Start 09/27/16 at 09:00 Lorazepam (Ativan) 0.25 mg PRN Q2HR PRN PO ANXIETY/AGITATION Last administered on 09/30/16 15:04; Start 09/26/16 at 23:30 Melatonin 6 mg QHS PO Last administered on 09/30/16 20:04; Start 09/27/16 at 21: 00 Olanzapine (Zyprexa Zydis) 1.25 mg PRN Q2HR PRN PO PSYCHOSIS Last administered on 09/28/16 17:59; Start 09/26/16 at 23:30 Quetiapine Fumarate (SEROquel) 100 mg HS PO Last administered on 09/30/16 20:05 ; Start 09/27/16 at 21:00 Sertraline HCl (Zoloft) 100 mg HS PO Last administered on 09/30/16 20:05; Start 09/27/16 at 21:00 Al Hydroxide/Mg Hydroxide (Mylanta Plus Xs) 15 ml PRN AFTMEALHC PRN PO DYSPEPSIA; Start 09/26/16 at 23:30 Magnesium Hydroxide (Milk Of Magnesia) 2,400 mg PRN QHS PRN PO CONSTIPATION; Start 09/26/16 at 23:45 Multi-Ingredient Ointment (Analgesic [place]) 1 jeb PRN QID PRN TP MUSCLE PAIN; Start 09/26/16 at 23:45; Stop 09/26/16 at 23:45; Status DC Quetiapine Fumarate (SEROquel) 50 mg [id number] PO Last administered on 09/30/16 17 :21; Start 09/27/16 at 07:00 Multi-Ingredient Ointment (Analgesic [place]) 1 jeb PRN QID PRN TP MUSCLE PAIN; Start 09/26/16 at 23:45 Acetaminophen (Tylenol) 650 mg PRN Q6HRS PRN PO PAIN / TEMP; Start 09/26/16 at 23:30; Status UNV Al Hydroxide/Mg Hydroxide (Mylanta Plus Xs) 15 ml PRN AFTMEALHC PRN PO DYSPEPSIA; Start 09/26/16 at 23:30; Status UNV Magnesium Hydroxide (Milk Of Magnesia) 2,400 mg PRN QHS PRN PO CONSTIPATION; Start 09/26/16 at 23:30; Status UNV Albuterol Sulfate (Ventolin) 2.5 mg PRN Q6HRS PRN NEB COPD Last administered on 09/27/16 05:24; Start 09/27/16 at 00:00 Aspirin (Children'S Aspirin) 81 mg DAILY PO Last administered on 09/30/16 09:06 ; Start 09/27/16 at 09:00 Budesonide (Pulmicort) 0.5 mg BID NEB Last administered on 09/30/16 19:36; Start 09/27/16 at 09:00 Fluticasone Propionate (Flonase) 2 spray QHS NS Last administered on 09/30/16 20:04; Start 09/27/16 at 21:00 Lisinopril (Prinivil) 20 mg DAILY PO Last administered on 09/30/16 09:07; Start 09/27/16 at 09:00 Pantoprazole Sodium (Protonix) 40 mg QHS PO Last administered on 09/30/16 20:04 ; Start 09/27/16 at 21:00 Polyethylene Glycol (miraLAX) 17 gm DAILY PO Last administered on 09/30/16 09: 06; Start 09/27/16 at 09:00 Non-Formulary Medication 2.5 mg QID NEB COPD; Start 09/27/16 at 09:00; Stop at 09:00; Status DC Vitamin D (Vitamin D3) 5,000 unit DAILY PO Last administered on 09/30/16 09:07 ; Start 09/27/16 at 09:00 Multivitamins/ Calcium (Thera-M Plus) 1 tab DAILY PO Last administered on 09:06; Start 09/27/16 at 09:00 Albuterol Sulfate (Ventolin) 2.5 mg RTQID NEB Last administered on 09/30/16 19: 36; Start 09/27/16 at 08:00 Mirtazapine (Remeron) 7.5 mg QHS PO Last administered on 09/27/16 20:07; Start 09/27/16 at 21:00; Stop 09/28/16 at 18:50; Status DC Mirtazapine (Remeron) 15 mg QHS PO Last administered on 09/30/16 20:05; Start 09/28/16 at 21:00 Divalproex Sodium (Depakote Sprinkles) 125 mg BID PO Last administered on 20:04; Start 09/29/16 at 21:00 Prenat Multivit/ [employer]/Iron/Folic Ac (Multivitamin ) 1 tab [id number] PO Last administered on 09/30/16 17:21; Start 09/30/16 at 17:00 Active Scripts Active Reported Advair 500-50 Diskus (Fluticasone/Salmeterol) 1 Each Disk.w.dev 1 Each IH BID LAST DOSE GIVEN: DATE: TIME: NEXT DOSE DUE: DATE: TIME: Quetiapine Fumarate 50 Mg Tablet 50 Mg PO [id number] Quetiapine Fumarate 100 Mg Tablet 100 Mg PO HS Mucinex (Guaifenesin) 600 Mg Tablet.er 1 Tab PO BID Buspirone Hcl 10 Mg Tablet 15 Mg PO TID Sertraline Hcl 100 Mg Tablet 100 Mg PO HS Pantoprazole Sodium 40 Mg Tablet.dr 40 Mg PO QHS Zyprexa Zydis (Olanzapine) 5 Mg Tab.rapdis 1.25 Mg PO PRN Q2HR PRN Max dose: 7.5mg/24hrs [place] Ultra Strength Crm (Methyl Salicylate/Menth/Camph) 57 Gm Cream..g. 1 Applic TP PRN QID PRN Milk Of Magnesia (Magnesium Hydroxide) 2,400 Mg/10 Ml Oral.susp 2,400 Mg PO PRN QHS PRN Mag-Al Plus Suspension (Mag Hydrox/Al Hydrox/Simeth) 30 Ml Oral.susp 15 Ml PO PRN AFTMEALHC PRN Lorazepam 0.5 Mg Tablet 0.25 Mg PO PRN Q2HR PRN Budesonide 0.5 Mg/2 Ml Ampul.neb 0.5 Mg NEB BID Albuterol Sulfate Neb Soln (Albuterol Sulfate) 2.5 Mg/3 Ml Vial.neb 2.5 Mg NEB PRN Q6HRS PRN Tylenol (Acetaminophen) 325 Mg Tablet 650 Mg PO PRN Q6HRS PRN Polyethylene Glycol 3350 17 Gm Powd.pack 17 Gm PO DAILY Melatonin 3 Mg Tablet 6 Mg PO QHS Lisinopril 20 Mg Tablet 20 Mg PO DAILY Fluticasone Propionate Nasal [place] (Fluticasone Propionate) 16 Gm [place].susp 2 [place] NS QHS Multivitamins (Multivitamin) 1 Each Tablet 1 Each PO DAILY Vitamin D3 (Cholecalciferol (Vitamin D3)) 5,000 Unit Tablet 5,000 Unit PO DAILY Aspirin 81 Mg Tab.chew 81 Mg PO DAILY Albuterol Sulfate Neb Soln (Albuterol Sulfate) 1.25 Mg/3 Ml Vial.neb 2.5 Mg NEB QID Diagnosis: Problems: (1) Major depressive disorder (2) Dementia with behavioral disturbance (3) Anxiety disorder (4) Dementia in Alzheimer's disease with delusions (5) Dementia in Alzheimer's disease with depression (6) Impulse control disorder CHARLINE VASQUEZ MD September 30, 2016 20:22
--- NOTE | 2016-10-01 03:39 | PN ---
DATE: 09/28/2016 PSYCHIATRIC PROGRESS NOTE This is a late entry of 09/28/2016 covers elements not covered in my initial note. SUBJECTIVE: Overall, the patient remains extremely anxious, repeatedly asking for breathing treatments, restless, irritable at times, slept 5-1/2 hours. REVIEW OF SYSTEMS: Shortness of breath, on oxygen supplement. Impaired ambulation in a wheelchair. No CV, , GI, eye system symptoms on review. MENTAL STATUS EXAM: Oriented to herself and situation. Speech coherent, rapid at times. Abstraction fair, computation impaired, language function intact. Attention span short, language. Mood and affect remains anxious, labile. LABORATORY DATA: Reviewed. IMPRESSION: Major depressive disorder with psychotic features; anxiety disorder, unspecified. PLAN: Increase Remeron to 15 mg at bedtime and she is sleeping poorly. Continue Zoloft, BuSpar, Seroquel along with Ativan p.r.n. as noted in my initial note. Adjust as indicated. CHARLINE VASQUEZ MD DR: KHUSHBOO/jacqueline JOB#: [id number] / [id number]
--- NOTE | 2016-10-01 03:55 | PN ---
DATE: 09/29/2016 PSYCHIATRIC PROGRESS NOTE This is a late entry of 09/29/2016 covers elements not covered in my initial note. SUBJECTIVE: The patient was staffed at a treatment team meeting with the entire team and Celia rubio's daughter, attended the conference. Reviewed her progress on going anxiety requests for repeated breathing treatments. Reviewed the history. She was living at home, then to the [facility]. REVIEW OF SYSTEMS: Positive for impaired ambulation in a wheelchair, difficulty with breathing on oxygen supplements. No CV, , eye system symptoms on review. MENTAL STATUS EXAM: Oriented to herself and situation. Speech is coherent, rapid at times. Abstraction fair, computation impaired, language function intact. Mood and affect somewhat labile. LABORATORY DATA: Reviewed. IMPRESSION: Unchanged from initial note, major depressive disorder, recurrent; anxiety disorder, unspecified. Probable bipolar 1 disorder, mixed versus depressed. PLAN: Add Depakote Sprinkles 125 mg twice a day. Follow labs in a level in 3 days. Continue rest of the psychotropics mentioned in my initial note. MAN Ino VASQUEZ MD DR: KHUSHBOO/jacqueline JOB#: [id number] / [id number]
[2016-10-01] MEDS: ALBUTEROL SULFATE 2.5 MG/3 ML NEBU. NEB SCH ×4 (05:02→19:39)
[2016-10-01] MEDS: QUEtiapine 50 MG TABLET. PO SCH ×3 (05:52→17:24)
[2016-10-01 06:50] VITALS: BP 167/73
[2016-10-01] MEDS: MULTIVITAMIN with MINERAL TABLET. PO SCH (08:15)
[2016-10-01] MEDS: CHOLECALCIFEROL (VITAMIN D3) 1,000 UNIT TABLET PO SCH (08:15)
[2016-10-01] MEDS: LISINOPRIL 20 MG TABLET PO SCH (08:15)
[2016-10-01] MEDS: POLYETHYLENE GLYCOL 3350 17 GM PACKET. PO SCH (08:15)
[2016-10-01] MEDS: DIVALPROEX 125 MG CAP.SPRINK PO SCH ×2 (08:15→20:29)
[2016-10-01] MEDS: ASPIRIN 81 MG TAB.CHEW PO SCH (08:16)
[2016-10-01] MEDS: busPIRone 10 MG TABLET. PO SCH ×3 (08:16→20:29)
[2016-10-01] MEDS: LORazepam 0.5 MG TABLET PO PRN ×2 (09:42→14:38)
[2016-10-01] MEDS ORDERED: POLYVINYL ALCOHOL/POVIDONE/PF OPHTH SOLUTION DROPERETTE. OU PRN (09:45)
[2016-10-01] MEDS: BUDESONIDE 0.5 MG/2 ML NEBU NEB SCH ×2 (10:54→19:39)
[2016-10-01] MEDS: MAG HYDROX/AL HYDROX/SIMETH 30 ML ORAL.SUSP PO PRN (13:28)
[2016-10-01 16:14] VITALS: BP 95/61
[2016-10-01] MEDS: PRENATAL MULTIVITAMIN TABLET. PO SCH (17:24)
--- NOTE | 2016-10-01 19:14 | PDOC ---
Exam Maciel Demential Exam: Maciel Note: Please also refer to the separate dictated note~for this date of service dictated separately.~Patient seen individually. Discussed the patient with Nursing staff reviewed the chart.~Reviewed interim history and current functioning. Reviewed vital signs,~Labs/ Radiology~and current medications noted below. Continue current treatment with the changes noted in the dictated addendum note Assessment: Vital Signs: Vital Signs Date Time Temp Pulse Resp B/P (MAP) Pulse Ox O2 Delivery O2 Flow Rate FiO2 10/01/16 16:14 98 Nasal Cannula 2.0 10/01/16 16:14 98.1 87 20 95/61 (72) I&O Intake and Output 10/01/16 07:00 Intake Total 840 ml Balance 840 ml Intake Oral 840 ml # Voids 1 Current Medications: Meds: Current Medications Acetaminophen (Tylenol) 650 mg PRN Q6HRS PRN PO PAIN / TEMP; Start 09/26/16 at 21:15; Status Cancel Guaifenesin (Mucinex Er) 600 mg BID PO Last administered on 10/01/16 08:16; Start 09/27/16 at 09:00 Acetaminophen (Tylenol) 650 mg PRN Q6HRS PRN PO MILD PAIN/TEMP Last administered on 09/27/16 00:06; Start 09/26/16 at 23:30 Buspirone HCl (Buspar) 15 mg TID PO Last administered on 10/01/16 13:57; Start 09/27/16 at 09:00 Lorazepam (Ativan) 0.25 mg PRN Q2HR PRN PO ANXIETY/AGITATION Last administered on 10/01/16 14:38; Start 09/26/16 at 23:30 Melatonin 6 mg QHS PO Last administered on 09/30/16 20:04; Start 09/27/16 at 21: 00 Olanzapine (Zyprexa Zydis) 1.25 mg PRN Q2HR PRN PO PSYCHOSIS Last administered on 10/01/16 14:38; Start 09/26/16 at 23:30 Quetiapine Fumarate (SEROquel) 100 mg HS PO Last administered on 09/30/16 20:05 ; Start 09/27/16 at 21:00 Sertraline HCl (Zoloft) 100 mg HS PO Last administered on 09/30/16 20:05; Start 09/27/16 at 21:00 Al Hydroxide/Mg Hydroxide (Mylanta Plus Xs) 15 ml PRN AFTMEALHC PRN PO DYSPEPSIA Last administered on 10/01/16 13:28; Start 09/26/16 at 23:30 Magnesium Hydroxide (Milk Of Magnesia) 2,400 mg PRN QHS PRN PO CONSTIPATION; Start 09/26/16 at 23:45 Multi-Ingredient Ointment (Analgesic [place]) 1 jeb PRN QID PRN TP MUSCLE PAIN; Start 09/26/16 at 23:45; Stop 09/26/16 at 23:45; Status DC Quetiapine Fumarate (SEROquel) 50 mg [id number] PO Last administered on 10/01/16 17 :24; Start 09/27/16 at 07:00 Multi-Ingredient Ointment (Analgesic [place]) 1 jeb PRN QID PRN TP MUSCLE PAIN; Start 09/26/16 at 23:45 Acetaminophen (Tylenol) 650 mg PRN Q6HRS PRN PO PAIN / TEMP; Start 09/26/16 at 23:30; Status UNV Al Hydroxide/Mg Hydroxide (Mylanta Plus Xs) 15 ml PRN AFTMEALHC PRN PO DYSPEPSIA; Start 09/26/16 at 23:30; Status UNV Magnesium Hydroxide (Milk Of Magnesia) 2,400 mg PRN QHS PRN PO CONSTIPATION; Start 09/26/16 at 23:30; Status UNV Albuterol Sulfate (Ventolin) 2.5 mg PRN Q6HRS PRN NEB COPD Last administered on 09/27/16 05:24; Start 09/27/16 at 00:00 Aspirin (Children'S Aspirin) 81 mg DAILY PO Last administered on 10/01/16 08:16 ; Start 09/27/16 at 09:00 Budesonide (Pulmicort) 0.5 mg BID NEB Last administered on 10/01/16 10:54; Start 09/27/16 at 09:00 Fluticasone Propionate (Flonase) 2 spray QHS NS Last administered on 09/30/16 20:04; Start 09/27/16 at 21:00 Lisinopril (Prinivil) 20 mg DAILY PO Last administered on 10/01/16 08:15; Start 09/27/16 at 09:00 Pantoprazole Sodium (Protonix) 40 mg QHS PO Last administered on 09/30/16 20:04 ; Start 09/27/16 at 21:00 Polyethylene Glycol (miraLAX) 17 gm DAILY PO Last administered on 10/01/16 08: 15; Start 09/27/16 at 09:00 Non-Formulary Medication 2.5 mg QID NEB COPD; Start 09/27/16 at 09:00; Stop at 09:00; Status DC Vitamin D (Vitamin D3) 5,000 unit DAILY PO Last administered on 10/01/16 08:15 ; Start 09/27/16 at 09:00 Multivitamins/ Calcium (Thera-M Plus) 1 tab DAILY PO Last administered on 08:15; Start 09/27/16 at 09:00 Albuterol Sulfate (Ventolin) 2.5 mg RTQID NEB Last administered on 10/01/16 16: 13; Start 09/27/16 at 08:00 Mirtazapine (Remeron) 7.5 mg QHS PO Last administered on 09/27/16 20:07; Start 09/27/16 at 21:00; Stop 09/28/16 at 18:50; Status DC Mirtazapine (Remeron) 15 mg QHS PO Last administered on 09/30/16 20:05; Start 09/28/16 at 21:00 Divalproex Sodium (Depakote Sprinkles) 125 mg BID PO Last administered on 08:15; Start 09/29/16 at 21:00 Prenat Multivit/ Howard/Iron/Folic Ac (Multivitamin ) 1 tab DAILYBFRSUP PO Last administered on 10/01/16 17:24; Start 09/30/16 at 17:00 Artificial Tears (Refresh Classic) 1 drop PRN Q1HR PRN OU DRY EYE Last administered on 10/01/16 09:42; Start 10/01/16 at 09:45 Active Scripts Active Reported Advair 500-50 Diskus (Fluticasone/Salmeterol) 1 Each Disk.w.dev 1 Each IH BID LAST DOSE GIVEN: DATE: TIME: NEXT DOSE DUE: DATE: TIME: Quetiapine Fumarate 50 Mg Tablet 50 Mg PO [id number] Quetiapine Fumarate 100 Mg Tablet 100 Mg PO HS Mucinex (Guaifenesin) 600 Mg Tablet.er 1 Tab PO BID Buspirone Hcl 10 Mg Tablet 15 Mg PO TID Sertraline Hcl 100 Mg Tablet 100 Mg PO HS Pantoprazole Sodium 40 Mg Tablet.dr 40 Mg PO QHS Zyprexa Zydis (Olanzapine) 5 Mg Tab.rapdis 1.25 Mg PO PRN Q2HR PRN Max dose: 7.5mg/24hrs [place] Ultra Strength Crm (Methyl Salicylate/Menth/Camph) 57 Gm Cream..g. 1 Applic TP PRN QID PRN Milk Of Magnesia (Magnesium Hydroxide) 2,400 Mg/10 Ml Oral.susp 2,400 Mg PO PRN QHS PRN Mag-Al Plus Suspension (Mag Hydrox/Al Hydrox/Simeth) 30 Ml Oral.susp 15 Ml PO PRN AFTMEALHC PRN Lorazepam 0.5 Mg Tablet 0.25 Mg PO PRN Q2HR PRN Budesonide 0.5 Mg/2 Ml Ampul.neb 0.5 Mg NEB BID Albuterol Sulfate Neb Soln (Albuterol Sulfate) 2.5 Mg/3 Ml Vial.neb 2.5 Mg NEB PRN Q6HRS PRN Tylenol (Acetaminophen) 325 Mg Tablet 650 Mg PO PRN Q6HRS PRN Polyethylene Glycol 3350 17 Gm Powd.pack 17 Gm PO DAILY Melatonin 3 Mg Tablet 6 Mg PO QHS Lisinopril 20 Mg Tablet 20 Mg PO DAILY Fluticasone Propionate Nasal [place] (Fluticasone Propionate) 16 Gm [place].susp 2 [place] NS QHS Multivitamins (Multivitamin) 1 Each Tablet 1 Each PO DAILY Vitamin D3 (Cholecalciferol (Vitamin D3)) 5,000 Unit Tablet 5,000 Unit PO DAILY Aspirin 81 Mg Tab.chew 81 Mg PO DAILY Albuterol Sulfate Neb Soln (Albuterol Sulfate) 1.25 Mg/3 Ml Vial.neb 2.5 Mg NEB QID Diagnosis: Problems: (1) Major depressive disorder (2) Dementia with behavioral disturbance (3) Anxiety disorder (4) Dementia in Alzheimer's disease with delusions (5) Dementia in Alzheimer's disease with depression (6) Impulse control disorder CHARLINE VASQUEZ MD October 01, 2016 19:14
[2016-10-01] MEDS: FLUTICASONE 50MCG/NASAL SPRAY 16GM BOTTLE. NS SCH (20:29)
[2016-10-01] MEDS: MELATONIN 3 MG TABLET PO SCH (20:29)
[2016-10-01] MEDS: MIRTAZAPINE 15 MG TABLET PO SCH (20:30)
[2016-10-01] MEDS: SERTRALINE 100 MG TABLET. PO SCH (20:30)
[2016-10-01] MEDS: PANTOPRAZOLE 40 MG TABLET. PO SCH (20:30)
[2016-10-01] MEDS: QUEtiapine 100 MG TABLET. PO SCH (20:30)
[2016-10-02] MEDS: ALBUTEROL SULFATE 2.5 MG/3 ML NEBU. NEB SCH ×4 (05:03→20:00)
[2016-10-02] MEDS: QUEtiapine 50 MG TABLET. PO SCH ×3 (06:08→18:19)
[2016-10-02 06:39] VITALS: BP 124/77
[2016-10-02] MEDS: POLYETHYLENE GLYCOL 3350 17 GM PACKET. PO SCH (08:34)
[2016-10-02] MEDS: busPIRone 10 MG TABLET. PO SCH ×3 (08:35→21:09)
[2016-10-02] MEDS: MULTIVITAMIN with MINERAL TABLET. PO SCH (08:35)
[2016-10-02] MEDS: DIVALPROEX 125 MG CAP.SPRINK PO SCH ×2 (08:36→21:09)
[2016-10-02] MEDS: LISINOPRIL 20 MG TABLET PO SCH (08:36)
[2016-10-02] MEDS: CHOLECALCIFEROL (VITAMIN D3) 1,000 UNIT TABLET PO SCH (08:37)
[2016-10-02] MEDS: ASPIRIN 81 MG TAB.CHEW PO SCH (09:23)
[2016-10-02 09:40] LABS: BASO % 1 % (0-3); EOS # 0.5 x10^3/uL (0.0-0.7); EOS % 7 % (0-3); HEMATOCRIT 33.5 % (36.0-47.0); HEMOGLOBIN 11.1 g/dL (12.0-15.5); LYMPH # 1.7 x10^3/uL (1.0-4.8); LYMPH % 21 % (24-48); MEAN CORPUSCULAR HEMOGLOBIN 29 pg (25-35); MEAN CORPUSCULAR HGB CONC 33 g/dL (31-37); MEAN CORPUSCULAR VOLUME 86 fL (79-100); MONO # 0.7 x10^3/uL (0.0-1.1); MONO % 9 % (0-9); NEUT # 4.8 x10^3uL (1.8-7.7); NEUT % 62 % (31-73); PLATELET COUNT 354 x10^3/uL (140-400); RED BLOOD COUNT 3.88 x10^6/uL (3.50-5.40); RED CELL DISTRIBUTION WIDTH 14.2 % (11.5-14.5); WHITE BLOOD COUNT 7.8 x10^3/uL (4.0-11.0)
[2016-10-02 09:53] LABS: ALBUMIN 3.4 g/dL (3.4-5.0); ALBUMIN/GLOBULIN RATIO 1.1 (1.0-1.7); CALCIUM 8.7 mg/dL (8.5-10.1); CREATININE 0.7 mg/dL (0.6-1.0); GFR 81.1; POTASSIUM 4.8 mmol/L (3.5-5.1); TOTAL BILIRUBIN 0.4 mg/dL (0.2-1.0); TOTAL PROTEIN 6.4 g/dL (6.4-8.2); VAL ACID 22 mcg/mL (50-100)
[2016-10-02] MEDS: BUDESONIDE 0.5 MG/2 ML NEBU NEB SCH ×2 (10:56→20:00)
[2016-10-02 15:53] VITALS: BP 115/84
[2016-10-02] MEDS: PRENATAL MULTIVITAMIN TABLET. PO SCH (18:00)
--- NOTE | 2016-10-02 19:55 | PDOC ---
Exam Maciel Demential Exam: Maciel Note: Please also refer to the separate dictated note~for this date of service dictated separately.~Patient seen individually. Discussed the patient with Nursing staff reviewed the chart.~Reviewed interim history and current functioning. Reviewed vital signs,~Labs/ Radiology~and current medications noted below. Continue current treatment with the changes noted in the dictated addendum note Assessment: Vital Signs: Vital Signs Date Time Temp Pulse Resp B/P (MAP) Pulse Ox O2 Delivery O2 Flow Rate FiO2 10/02/16 16:29 97 Nasal Cannula 2.0 10/02/16 15:53 97.8 69 20 115/84 (94) I&O Intake and Output 10/02/16 07:00 Intake Total 840 ml Balance 840 ml Intake Oral 840 ml # Voids 1 Labs: Laboratory Tests Test 10/02/16 09:20 White Blood Count 7.8 x10^3/uL (4.0-11.0) Red Blood Count 3.88 x10^6/uL (3.50-5.40) Hemoglobin 11.1 g/dL (12.0-15.5) L Hematocrit 33.5 % (36.0-47.0) L Mean Corpuscular Volume 86 fL (79-100) Mean Corpuscular Hemoglobin 29 pg (25-35) Mean Corpuscular Hemoglobin Concent 33 g/dL (31-37) Red Cell Distribution Width 14.2 % (11.5-14.5) Platelet Count 354 x10^3/uL (140-400) Neutrophils (%) (Auto) 62 % (31-73) Lymphocytes (%) (Auto) 21 % (24-48) L Monocytes (%) (Auto) 9 % (0-9) Eosinophils (%) (Auto) 7 % (0-3) H Basophils (%) (Auto) 1 % (0-3) Neutrophils # (Auto) 4.8 x10^3uL (1.8-7.7) Lymphocytes # (Auto) 1.7 x10^3/uL (1.0-4.8) Monocytes # (Auto) 0.7 x10^3/uL (0.0-1.1) Eosinophils # (Auto) 0.5 x10^3/uL (0.0-0.7) Basophils # (Auto) 0.0 x10^3/uL (0.0-0.2) Sodium Level 132 mmol/L (136-145) L Potassium Level 4.8 mmol/L (3.5-5.1) Chloride Level 95 mmol/L (98-107) L Carbon Dioxide Level 36 mmol/L (21-32) H Anion Gap 1 (6-14) L Blood Urea Nitrogen 11 mg/dL (7-20) Creatinine 0.7 mg/dL (0.6-1.0) Estimated GFR (Cockcroft-Gault) 81.1 BUN/Creatinine Ratio 16 (6-20) Glucose Level 132 mg/dL (70-99) H Calcium Level 8.7 mg/dL (8.5-10.1) Total Bilirubin 0.4 mg/dL (0.2-1.0) Aspartate Amino Transferase (AST) 13 U/L (15-37) L Alanine Aminotransferase (ALT) 20 U/L (14-59) Alkaline Phosphatase 81 U/L (46-116) Total Protein 6.4 g/dL (6.4-8.2) Albumin 3.4 g/dL (3.4-5.0) Albumin/Globulin Ratio 1.1 (1.0-1.7) Valproic Acid Level 22 mcg/mL (50-100) L Valproic Acid Last Dose Date 10/01/16 Valproic Acid Last Dose Time 2100 Current Medications: Meds: Current Medications Acetaminophen (Tylenol) 650 mg PRN Q6HRS PRN PO PAIN / TEMP; Start 09/26/16 at 21:15; Status Cancel Guaifenesin (Mucinex Er) 600 mg BID PO Last administered on 10/02/16 08:37; Start 09/27/16 at 09:00 Acetaminophen (Tylenol) 650 mg PRN Q6HRS PRN PO MILD PAIN/TEMP Last administered on 09/27/16 00:06; Start 09/26/16 at 23:30 Buspirone HCl (Buspar) 15 mg TID PO Last administered on 10/02/16 13:08; Start 09/27/16 at 09:00 Lorazepam (Ativan) 0.25 mg PRN Q2HR PRN PO ANXIETY/AGITATION Last administered on 10/01/16 14:38; Start 09/26/16 at 23:30 Melatonin 6 mg QHS PO Last administered on 10/01/16 20:29; Start 09/27/16 at 21: 00 Olanzapine (Zyprexa Zydis) 1.25 mg PRN Q2HR PRN PO PSYCHOSIS Last administered on 10/01/16 14:38; Start 09/26/16 at 23:30 Quetiapine Fumarate (SEROquel) 100 mg HS PO Last administered on 10/01/16 20:30 ; Start 09/27/16 at 21:00 Sertraline HCl (Zoloft) 100 mg HS PO Last administered on 10/01/16 20:30; Start 09/27/16 at 21:00 Al Hydroxide/Mg Hydroxide (Mylanta Plus Xs) 15 ml PRN AFTMEALHC PRN PO DYSPEPSIA Last administered on 10/01/16 13:28; Start 09/26/16 at 23:30 Magnesium Hydroxide (Milk Of Magnesia) 2,400 mg PRN QHS PRN PO CONSTIPATION; Start 09/26/16 at 23:45 Multi-Ingredient Ointment (Analgesic [place]) 1 jeb PRN QID PRN TP MUSCLE PAIN; Start 09/26/16 at 23:45; Stop 09/26/16 at 23:45; Status DC Quetiapine Fumarate (SEROquel) 50 mg [id number] PO Last administered on 10/02/16 18 :19; Start 09/27/16 at 07:00 Multi-Ingredient Ointment (Analgesic [place]) 1 jeb PRN QID PRN TP MUSCLE PAIN; Start 09/26/16 at 23:45 Acetaminophen (Tylenol) 650 mg PRN Q6HRS PRN PO PAIN / TEMP; Start 09/26/16 at 23:30; Status UNV Al Hydroxide/Mg Hydroxide (Mylanta Plus Xs) 15 ml PRN AFTMEALHC PRN PO DYSPEPSIA; Start 09/26/16 at 23:30; Status UNV Magnesium Hydroxide (Milk Of Magnesia) 2,400 mg PRN QHS PRN PO CONSTIPATION; Start 09/26/16 at 23:30; Status UNV Albuterol Sulfate (Ventolin) 2.5 mg PRN Q6HRS PRN NEB COPD Last administered on 09/27/16 05:24; Start 09/27/16 at 00:00 Aspirin (Children'S Aspirin) 81 mg DAILY PO Last administered on 10/02/16 09:23 ; Start 09/27/16 at 09:00 Budesonide (Pulmicort) 0.5 mg BID NEB Last administered on 10/02/16 10:56; Start 09/27/16 at 09:00 Fluticasone Propionate (Flonase) 2 spray QHS NS Last administered on 10/01/16 20:29; Start 09/27/16 at 21:00 Lisinopril (Prinivil) 20 mg DAILY PO Last administered on 10/02/16 08:36; Start 09/27/16 at 09:00 Pantoprazole Sodium (Protonix) 40 mg QHS PO Last administered on 10/01/16 20:30 ; Start 09/27/16 at 21:00 Polyethylene Glycol (miraLAX) 17 gm DAILY PO Last administered on 10/02/16 08: 34; Start 09/27/16 at 09:00 Non-Formulary Medication 2.5 mg QID NEB COPD; Start 09/27/16 at 09:00; Stop at 09:00; Status DC Vitamin D (Vitamin D3) 5,000 unit DAILY PO Last administered on 10/02/16 08:37 ; Start 09/27/16 at 09:00 Multivitamins/ Calcium (Thera-M Plus) 1 tab DAILY PO Last administered on 08:35; Start 09/27/16 at 09:00 Albuterol Sulfate (Ventolin) 2.5 mg RTQID NEB Last administered on 10/02/16 16: 29; Start 09/27/16 at 08:00 Mirtazapine (Remeron) 7.5 mg QHS PO Last administered on 09/27/16 20:07; Start 09/27/16 at 21:00; Stop 09/28/16 at 18:50; Status DC Mirtazapine (Remeron) 15 mg QHS PO Last administered on 10/01/16 20:30; Start 09/28/16 at 21:00 Divalproex Sodium (Depakote Sprinkles) 125 mg BID PO Last administered on 08:36; Start 09/29/16 at 21:00 Prenat Multivit/ Logistics Supervisor/Iron/Folic Ac (Multivitamin ) 1 tab DAILYBFRSUP PO Last administered on 10/02/16 18:00; Start 09/30/16 at 17:00 Artificial Tears (Refresh Classic) 1 drop PRN Q1HR PRN OU DRY EYE Last administered on 10/01/16 09:42; Start 10/01/16 at 09:45 Active Scripts Active Reported Advair 500-50 Diskus (Fluticasone/Salmeterol) 1 Each Disk.w.dev 1 Each IH BID LAST DOSE GIVEN: DATE: TIME: NEXT DOSE DUE: DATE: TIME: Quetiapine Fumarate 50 Mg Tablet 50 Mg PO [id number] Quetiapine Fumarate 100 Mg Tablet 100 Mg PO HS Mucinex (Guaifenesin) 600 Mg Tablet.er 1 Tab PO BID Buspirone Hcl 10 Mg Tablet 15 Mg PO TID Sertraline Hcl 100 Mg Tablet 100 Mg PO HS Pantoprazole Sodium 40 Mg Tablet.dr 40 Mg PO QHS Zyprexa Zydis (Olanzapine) 5 Mg Tab.rapdis 1.25 Mg PO PRN Q2HR PRN Max dose: 7.5mg/24hrs [place] Ultra Strength Crm (Methyl Salicylate/Menth/Camph) 57 Gm Cream..g. 1 Applic TP PRN QID PRN Milk Of Magnesia (Magnesium Hydroxide) 2,400 Mg/10 Ml Oral.susp 2,400 Mg PO PRN QHS PRN Mag-Al Plus Suspension (Mag Hydrox/Al Hydrox/Simeth) 30 Ml Oral.susp 15 Ml PO PRN AFTMEALHC PRN Lorazepam 0.5 Mg Tablet 0.25 Mg PO PRN Q2HR PRN Budesonide 0.5 Mg/2 Ml Ampul.neb 0.5 Mg NEB BID Albuterol Sulfate Neb Soln (Albuterol Sulfate) 2.5 Mg/3 Ml Vial.neb 2.5 Mg NEB PRN Q6HRS PRN Tylenol (Acetaminophen) 325 Mg Tablet 650 Mg PO PRN Q6HRS PRN Polyethylene Glycol 3350 17 Gm Powd.pack 17 Gm PO DAILY Melatonin 3 Mg Tablet 6 Mg PO QHS Lisinopril 20 Mg Tablet 20 Mg PO DAILY Fluticasone Propionate Nasal [place] (Fluticasone Propionate) 16 Gm [place].susp 2 [place] NS QHS Multivitamins (Multivitamin) 1 Each Tablet 1 Each PO DAILY Vitamin D3 (Cholecalciferol (Vitamin D3)) 5,000 Unit Tablet 5,000 Unit PO DAILY Aspirin 81 Mg Tab.chew 81 Mg PO DAILY Albuterol Sulfate Neb Soln (Albuterol Sulfate) 1.25 Mg/3 Ml Vial.neb 2.5 Mg NEB QID Diagnosis: Problems: (1) Major depressive disorder (2) Dementia with behavioral disturbance (3) Anxiety disorder (4) Dementia in Alzheimer's disease with delusions (5) Dementia in Alzheimer's disease with depression (6) Impulse control disorder CHARLINE VASQUEZ MD October 02, 2016 19:55
[2016-10-02] MEDS: PANTOPRAZOLE 40 MG TABLET. PO SCH (21:08)
[2016-10-02] MEDS: FLUTICASONE 50MCG/NASAL SPRAY 16GM BOTTLE. NS SCH (21:08)
[2016-10-02] MEDS: QUEtiapine 100 MG TABLET. PO SCH (21:09)
[2016-10-02] MEDS: MELATONIN 3 MG TABLET PO SCH (21:10)
[2016-10-02] MEDS: SERTRALINE 100 MG TABLET. PO SCH (21:10)
[2016-10-02] MEDS: MIRTAZAPINE 15 MG TABLET PO SCH (21:10)
[2016-10-02] MEDS: MAG HYDROX/AL HYDROX/SIMETH 30 ML ORAL.SUSP PO PRN (22:55)
--- NOTE | 2016-10-02 23:33 | PN ---
DATE: 09/30/2016 PSYCHIATRIC PROGRESS NOTE This is a late entry of 09/30/2016 covers elements not covered in my initial note. SUBJECTIVE: The patient remains anxious, received Ativan at 1500, repeatedly asking for breathing treatments, compliant with medications. REVIEW OF SYSTEMS: Shortness of breath, impaired ambulation in a wheelchair. No CV, , pulmonary, eye system symptoms on review other than above. MENTAL STATUS EXAM: Reasonably oriented. Speech is coherent, has some latency, abstraction fair, computation impaired, language function intact, attention span short. Mood and affect remains anxious, labile. IMPRESSION: Mentioned in my initial note. PLAN: Continue current psychotropics including BuSpar, Zoloft, melatonin, Seroquel, Ativan p.r.n., Remeron, Depakote was initiated at 125 b.i.d. Follow labs level adjust to reach a therapeutic level. MAN Ino VASQUEZ MD DR: KHUSHBOO/jacqueline JOB#: [id number] / [id number]
--- NOTE | 2016-10-02 23:40 | PN ---
DATE: 10/01/2016 This is a late entry 10/01/2016, and covers elements not covered in my initial note. SUBJECTIVE: Per nursing report, the morning of 10/01/2016, the patient was repeatedly wanting breathing treatments, received Ativan at 10:00 a.m. consequent to anxiety. I met with the patient's daughter as well to discuss her progress. Labs will be repeated in the morning 10/02/2016 for her Depakote. REVIEW OF SYSTEMS: Shortness of breath, on breathing treatments and O2 supplements, impaired ambulation, in her wheelchair. No CV, , eye, ENT system symptoms on review. MENTAL STATUS EXAM: Reasonably oriented. Speech is coherent, has some latency. Abstraction fair, computation impaired, language function intact, attention span short. Mood and affect lability shows improvement. LABORATORY DATA: Reviewed. IMPRESSION: Unchanged from initial note. PLAN: Continue current psychotropics. Check valproic acid level in the morning of 10/02/2016, adjust Depakote thereafter. CHARLINE VASQUEZ MD DR: KHUSHBOO/jacqueline JOB#: [id number] / [id number]
[2016-10-03] MEDS: ALBUTEROL SULFATE 2.5 MG/3 ML NEBU. NEB SCH ×4 (04:59→20:41)
[2016-10-03] MEDS: QUEtiapine 50 MG TABLET. PO SCH ×3 (05:33→16:10)
[2016-10-03 06:38] VITALS: BP 184/79
[2016-10-03] MEDS: POLYETHYLENE GLYCOL 3350 17 GM PACKET. PO SCH (08:27)
[2016-10-03] MEDS: LISINOPRIL 20 MG TABLET PO SCH (08:28)
[2016-10-03] MEDS: MULTIVITAMIN with MINERAL TABLET. PO SCH (08:28)
[2016-10-03] MEDS: CHOLECALCIFEROL (VITAMIN D3) 1,000 UNIT TABLET PO SCH (08:28)
[2016-10-03] MEDS: busPIRone 10 MG TABLET. PO SCH ×2 (08:28→13:23)
[2016-10-03] MEDS: ASPIRIN 81 MG TAB.CHEW PO SCH (08:28)
[2016-10-03] MEDS: DIVALPROEX 125 MG CAP.SPRINK PO SCH ×2 (08:28→20:32)
[2016-10-03] MEDS: BUDESONIDE 0.5 MG/2 ML NEBU NEB SCH ×2 (10:13→20:40)
[2016-10-03] MEDS: ACETAMINOPHEN 325 MG TABLET PO PRN (14:27)
[2016-10-03] MEDS: PRENATAL MULTIVITAMIN TABLET. PO SCH (16:10)
[2016-10-03 16:15] VITALS: BP 125/68
--- NOTE | 2016-10-03 20:13 | PDOC ---
Exam Maciel Demential Exam: Maciel Note: Please also refer to the separate dictated note~for this date of service dictated separately.~Patient seen individually. Discussed the patient with Nursing staff reviewed the chart.~Reviewed interim history and current functioning. Reviewed vital signs,~Labs/ Radiology~and current medications noted below. Continue current treatment with the changes noted in the dictated addendum note Assessment: Vital Signs: Vital Signs Date Time Temp Pulse Resp B/P (MAP) Pulse Ox O2 Delivery O2 Flow Rate FiO2 10/03/16 16:15 98.1 74 24 125/68 (87) 91 10/03/16 15:34 Nasal Cannula 2.0 I&O Intake and Output 10/03/16 07:00 Intake Total 930 ml Balance 930 ml Intake Oral 930 ml # Voids 1 # Bowel Movements 3 Current Medications: Meds: Current Medications Acetaminophen (Tylenol) 650 mg PRN Q6HRS PRN PO PAIN / TEMP; Start 09/26/16 at 21:15; Status Cancel Guaifenesin (Mucinex Er) 600 mg BID PO Last administered on 10/03/16 08:28; Start 09/27/16 at 09:00 Acetaminophen (Tylenol) 650 mg PRN Q6HRS PRN PO MILD PAIN/TEMP Last administered on 10/03/16 14:27; Start 09/26/16 at 23:30 Buspirone HCl (Buspar) 15 mg TID PO Last administered on 10/03/16 13:23; Start 09/27/16 at 09:00; Stop 10/03/16 at 15:45; Status DC Lorazepam (Ativan) 0.25 mg PRN Q2HR PRN PO ANXIETY/AGITATION Last administered on 10/01/16 14:38; Start 09/26/16 at 23:30 Melatonin 6 mg QHS PO Last administered on 10/02/16 21:10; Start 09/27/16 at 21: 00 Olanzapine (Zyprexa Zydis) 1.25 mg PRN Q2HR PRN PO PSYCHOSIS Last administered on 10/03/16 16:12; Start 09/26/16 at 23:30 Quetiapine Fumarate (SEROquel) 100 mg HS PO Last administered on 10/02/16 21:09 ; Start 09/27/16 at 21:00 Sertraline HCl (Zoloft) 100 mg HS PO Last administered on 10/02/16 21:10; Start 09/27/16 at 21:00 Al Hydroxide/Mg Hydroxide (Mylanta Plus Xs) 15 ml PRN AFTMEALHC PRN PO DYSPEPSIA Last administered on 10/02/16 22:55; Start 09/26/16 at 23:30 Magnesium Hydroxide (Milk Of Magnesia) 2,400 mg PRN QHS PRN PO CONSTIPATION; Start 09/26/16 at 23:45 Multi-Ingredient Ointment (Analgesic [place]) 1 jeb PRN QID PRN TP MUSCLE PAIN; Start 09/26/16 at 23:45; Stop 09/26/16 at 23:45; Status DC Quetiapine Fumarate (SEROquel) 50 mg [id number] PO Last administered on 10/03/16 16 :10; Start 09/27/16 at 07:00 Multi-Ingredient Ointment (Analgesic [place]) 1 jeb PRN QID PRN TP MUSCLE PAIN; Start 09/26/16 at 23:45 Acetaminophen (Tylenol) 650 mg PRN Q6HRS PRN PO PAIN / TEMP; Start 09/26/16 at 23:30; Status UNV Al Hydroxide/Mg Hydroxide (Mylanta Plus Xs) 15 ml PRN AFTMEALHC PRN PO DYSPEPSIA; Start 09/26/16 at 23:30; Status UNV Magnesium Hydroxide (Milk Of Magnesia) 2,400 mg PRN QHS PRN PO CONSTIPATION; Start 09/26/16 at 23:30; Status UNV Albuterol Sulfate (Ventolin) 2.5 mg PRN Q6HRS PRN NEB COPD Last administered on 09/27/16 05:24; Start 09/27/16 at 00:00 Aspirin (Children'S Aspirin) 81 mg DAILY PO Last administered on 10/03/16 08:28 ; Start 09/27/16 at 09:00 Budesonide (Pulmicort) 0.5 mg BID NEB Last administered on 10/03/16 10:13; Start 09/27/16 at 09:00 Fluticasone Propionate (Flonase) 2 spray QHS NS Last administered on 10/02/16 21:08; Start 09/27/16 at 21:00 Lisinopril (Prinivil) 20 mg DAILY PO Last administered on 10/03/16 08:28; Start 09/27/16 at 09:00 Pantoprazole Sodium (Protonix) 40 mg QHS PO Last administered on 10/02/16 21:08 ; Start 09/27/16 at 21:00 Polyethylene Glycol (miraLAX) 17 gm DAILY PO Last administered on 10/03/16 08: 27; Start 09/27/16 at 09:00 Non-Formulary Medication 2.5 mg QID NEB COPD; Start 09/27/16 at 09:00; Stop at 09:00; Status DC Vitamin D (Vitamin D3) 5,000 unit DAILY PO Last administered on 10/03/16 08:28 ; Start 09/27/16 at 09:00 Multivitamins/ Calcium (Thera-M Plus) 1 tab DAILY PO Last administered on 08:28; Start 09/27/16 at 09:00 Albuterol Sulfate (Ventolin) 2.5 mg RTQID NEB Last administered on 10/03/16 15: 34; Start 09/27/16 at 08:00 Mirtazapine (Remeron) 7.5 mg QHS PO Last administered on 09/27/16 20:07; Start 09/27/16 at 21:00; Stop 09/28/16 at 18:50; Status DC Mirtazapine (Remeron) 15 mg QHS PO Last administered on 10/02/16 21:10; Start 09/28/16 at 21:00 Divalproex Sodium (Depakote Sprinkles) 125 mg BID PO Last administered on 08:28; Start 09/29/16 at 21:00; Stop 10/03/16 at 18:17; Status DC Prenat Multivit/ Winfred/Iron/Folic Ac (Multivitamin ) 1 tab DAILYBFRSUP PO Last administered on 10/03/16 16:10; Start 09/30/16 at 17:00 Artificial Tears (Refresh Classic) 1 drop PRN Q1HR PRN OU DRY EYE Last administered on 10/01/16 09:42; Start 10/01/16 at 09:45 Buspirone HCl (Buspar) 15 mg TID PO ; Start 10/03/16 at 16:00 Nystatin (Nystop) 1 jeb BID TP ; Start 10/03/16 at 21:00 Divalproex Sodium (Depakote Sprinkles) 125 mg QID PO ; Start 10/03/16 at 21:00 Active Scripts Active Reported Advair 500-50 Diskus (Fluticasone/Salmeterol) 1 Each Disk.w.dev 1 Each IH BID LAST DOSE GIVEN: DATE: TIME: NEXT DOSE DUE: DATE: TIME: Quetiapine Fumarate 50 Mg Tablet 50 Mg PO [id number] Quetiapine Fumarate 100 Mg Tablet 100 Mg PO HS Mucinex (Guaifenesin) 600 Mg Tablet.er 1 Tab PO BID Buspirone Hcl 10 Mg Tablet 15 Mg PO TID Sertraline Hcl 100 Mg Tablet 100 Mg PO HS Pantoprazole Sodium 40 Mg Tablet.dr 40 Mg PO QHS Zyprexa Zydis (Olanzapine) 5 Mg Tab.rapdis 1.25 Mg PO PRN Q2HR PRN Max dose: 7.5mg/24hrs [place] Ultra Strength Crm (Methyl Salicylate/Menth/Camph) 57 Gm Cream..g. 1 Applic TP PRN QID PRN Milk Of Magnesia (Magnesium Hydroxide) 2,400 Mg/10 Ml Oral.susp 2,400 Mg PO PRN QHS PRN Mag-Al Plus Suspension (Mag Hydrox/Al Hydrox/Simeth) 30 Ml Oral.susp 15 Ml PO PRN AFTMEALHC PRN Lorazepam 0.5 Mg Tablet 0.25 Mg PO PRN Q2HR PRN Budesonide 0.5 Mg/2 Ml Ampul.neb 0.5 Mg NEB BID Albuterol Sulfate Neb Soln (Albuterol Sulfate) 2.5 Mg/3 Ml Vial.neb 2.5 Mg NEB PRN Q6HRS PRN Tylenol (Acetaminophen) 325 Mg Tablet 650 Mg PO PRN Q6HRS PRN Polyethylene Glycol 3350 17 Gm Powd.pack 17 Gm PO DAILY Melatonin 3 Mg Tablet 6 Mg PO QHS Lisinopril 20 Mg Tablet 20 Mg PO DAILY Fluticasone Propionate Nasal [place] (Fluticasone Propionate) 16 Gm [place].susp 2 [place] NS QHS Multivitamins (Multivitamin) 1 Each Tablet 1 Each PO DAILY Vitamin D3 (Cholecalciferol (Vitamin D3)) 5,000 Unit Tablet 5,000 Unit PO DAILY Aspirin 81 Mg Tab.chew 81 Mg PO DAILY Albuterol Sulfate Neb Soln (Albuterol Sulfate) 1.25 Mg/3 Ml Vial.neb 2.5 Mg NEB QID Diagnosis: Problems: (1) Major depressive disorder (2) Dementia with behavioral disturbance (3) Anxiety disorder (4) Dementia in Alzheimer's disease with delusions (5) Dementia in Alzheimer's disease with depression (6) Impulse control disorder CHARLINE VASQUEZ MD October 03, 2016 20:13
[2016-10-03] MEDS: MELATONIN 3 MG TABLET PO SCH (20:32)
[2016-10-03] MEDS: FLUTICASONE 50MCG/NASAL SPRAY 16GM BOTTLE. NS SCH (20:32)
[2016-10-03] MEDS: SERTRALINE 100 MG TABLET. PO SCH (20:33)
[2016-10-03] MEDS: MIRTAZAPINE 15 MG TABLET PO SCH (20:33)
[2016-10-03] MEDS: QUEtiapine 100 MG TABLET. PO SCH (20:34)
[2016-10-03] MEDS: busPIRone 15 MG TABLET. PO SCH (20:34)
[2016-10-03] MEDS: PANTOPRAZOLE 40 MG TABLET. PO SCH (20:36)
[2016-10-03] MEDS: NYSTATIN TOPICAL POWDER 15GM BOTTLE. TP SCH (20:36)
--- NOTE | 2016-10-04 02:12 | PN ---
DATE: 10/02/2016 This is a late entry for 10/02/2016, and covers the elements not covered in my initial note. SUBJECTIVE: Overall, the patient states she feels less anxious, but nursing report indicates she is quite anxious in the morning stating she could not breathe, later felt better. REVIEW OF SYSTEMS: Ambulation impaired, in a wheelchair, shortness of breath, on O2 supplements. No CV, , GI system symptoms on review. MENTAL STATUS EXAM: Reasonably oriented. Speech is coherent, rapid at times. Abstraction fair, computation impaired, language function intact. Attention span short. She is somewhat anxious, labile in her mood, but better. LABORATORY DATA: Reviewed. IMPRESSION: Major depressive disorder in partial remission; bipolar 1 disorder, unspecified. Rest diagnosis unchanged. PLAN: Continue psychotropics as mentioned in my initial note. Depakote is 125 b.i.d., follow labs level, adjust to reach a therapeutic level, should help with her mood lability as well. CHARLINE VASQUEZ MD DR: [email or web address]/jacqueline JOB#: [id number] / [id number]
[2016-10-04] MEDS: QUEtiapine 50 MG TABLET. PO SCH ×3 (04:08→16:59)
[2016-10-04] MEDS: LORazepam 0.5 MG TABLET PO PRN (04:08)
[2016-10-04] MEDS: ALBUTEROL SULFATE 2.5 MG/3 ML NEBU. NEB SCH ×4 (04:36→21:45)
[2016-10-04 06:04] VITALS: BP 115/57
[2016-10-04] MEDS: POLYETHYLENE GLYCOL 3350 17 GM PACKET. PO SCH (08:08)
[2016-10-04] MEDS: LISINOPRIL 20 MG TABLET PO SCH (08:09)
[2016-10-04] MEDS: DIVALPROEX 125 MG CAP.SPRINK PO SCH ×4 (08:09→19:40)
[2016-10-04] MEDS: busPIRone 15 MG TABLET. PO SCH ×3 (08:10→19:40)
[2016-10-04] MEDS: ASPIRIN 81 MG TAB.CHEW PO SCH (08:10)
[2016-10-04] MEDS: CHOLECALCIFEROL (VITAMIN D3) 1,000 UNIT TABLET PO SCH (08:10)
[2016-10-04] MEDS: MULTIVITAMIN with MINERAL TABLET. PO SCH (08:10)
[2016-10-04] MEDS: NYSTATIN TOPICAL POWDER 15GM BOTTLE. TP SCH ×2 (08:11→21:00)
[2016-10-04] MEDS: BUDESONIDE 0.5 MG/2 ML NEBU NEB SCH ×2 (11:13→21:45)
[2016-10-04 14:53] VITALS: BP 122/75
[2016-10-04] MEDS: PRENATAL MULTIVITAMIN TABLET. PO SCH (16:59)
[2016-10-04] MEDS: MELATONIN 3 MG TABLET PO SCH (19:40)
[2016-10-04] MEDS: FLUTICASONE 50MCG/NASAL SPRAY 16GM BOTTLE. NS SCH (19:40)
[2016-10-04] MEDS: MIRTAZAPINE 15 MG TABLET PO SCH (19:41)
[2016-10-04] MEDS: SERTRALINE 100 MG TABLET. PO SCH (19:41)
[2016-10-04] MEDS: QUEtiapine 100 MG TABLET. PO SCH (19:41)
[2016-10-04] MEDS: PANTOPRAZOLE 40 MG TABLET. PO SCH (19:41)
--- NOTE | 2016-10-04 21:11 | PDOC ---
Exam Maciel Demential Exam: Maciel Note: Please also refer to the separate dictated note~for this date of service dictated separately.~Patient seen individually. Discussed the patient with Nursing staff reviewed the chart.~Reviewed interim history and current functioning. Reviewed vital signs,~Labs/ Radiology~and current medications noted below. Continue current treatment with the changes noted in the dictated addendum note Assessment: Vital Signs: Vital Signs Date Time Temp Pulse Resp B/P (MAP) Pulse Ox O2 Delivery O2 Flow Rate FiO2 10/04/16 16:30 97 Nasal Cannula 2.0 10/04/16 14:53 98.3 85 18 122/75 (91) I&O Intake and Output 10/04/16 07:00 Intake Total 720 ml Balance 720 ml Intake Oral 720 ml # Bowel Movements 3 Current Medications: Meds: Current Medications Acetaminophen (Tylenol) 650 mg PRN Q6HRS PRN PO PAIN / TEMP; Start 09/26/16 at 21:15; Status Cancel Guaifenesin (Mucinex Er) 600 mg BID PO Last administered on 10/04/16 19:40; Start 09/27/16 at 09:00 Acetaminophen (Tylenol) 650 mg PRN Q6HRS PRN PO MILD PAIN/TEMP Last administered on 10/03/16 14:27; Start 09/26/16 at 23:30 Buspirone HCl (Buspar) 15 mg TID PO Last administered on 10/03/16 13:23; Start 09/27/16 at 09:00; Stop 10/03/16 at 15:45; Status DC Lorazepam (Ativan) 0.25 mg PRN Q2HR PRN PO ANXIETY/AGITATION Last administered on 10/04/16 04:08; Start 09/26/16 at 23:30 Melatonin 6 mg QHS PO Last administered on 10/04/16 19:40; Start 09/27/16 at 21: 00 Olanzapine (Zyprexa Zydis) 1.25 mg PRN Q2HR PRN PO PSYCHOSIS Last administered on 10/03/16 16:12; Start 09/26/16 at 23:30 Quetiapine Fumarate (SEROquel) 100 mg HS PO Last administered on 10/04/16 19:41 ; Start 09/27/16 at 21:00 Sertraline HCl (Zoloft) 100 mg HS PO Last administered on 10/04/16 19:41; Start 09/27/16 at 21:00 Al Hydroxide/Mg Hydroxide (Mylanta Plus Xs) 15 ml PRN AFTMEALHC PRN PO DYSPEPSIA Last administered on 10/02/16 22:55; Start 09/26/16 at 23:30 Magnesium Hydroxide (Milk Of Magnesia) 2,400 mg PRN QHS PRN PO CONSTIPATION; Start 09/26/16 at 23:45 Multi-Ingredient Ointment (Analgesic [place]) 1 jeb PRN QID PRN TP MUSCLE PAIN; Start 09/26/16 at 23:45; Stop 09/26/16 at 23:45; Status DC Quetiapine Fumarate (SEROquel) 50 mg [id number] PO Last administered on 10/04/16 16 :59; Start 09/27/16 at 07:00 Multi-Ingredient Ointment (Analgesic [place]) 1 jeb PRN QID PRN TP MUSCLE PAIN; Start 09/26/16 at 23:45 Acetaminophen (Tylenol) 650 mg PRN Q6HRS PRN PO PAIN / TEMP; Start 09/26/16 at 23:30; Status UNV Al Hydroxide/Mg Hydroxide (Mylanta Plus Xs) 15 ml PRN AFTMEALHC PRN PO DYSPEPSIA; Start 09/26/16 at 23:30; Status UNV Magnesium Hydroxide (Milk Of Magnesia) 2,400 mg PRN QHS PRN PO CONSTIPATION; Start 09/26/16 at 23:30; Status UNV Albuterol Sulfate (Ventolin) 2.5 mg PRN Q6HRS PRN NEB COPD Last administered on 09/27/16 05:24; Start 09/27/16 at 00:00 Aspirin (Children'S Aspirin) 81 mg DAILY PO Last administered on 10/04/16 08:10 ; Start 09/27/16 at 09:00 Budesonide (Pulmicort) 0.5 mg BID NEB Last administered on 10/04/16 11:13; Start 09/27/16 at 09:00 Fluticasone Propionate (Flonase) 2 spray QHS NS Last administered on 10/04/16 19:40; Start 09/27/16 at 21:00 Lisinopril (Prinivil) 20 mg DAILY PO Last administered on 10/04/16 08:09; Start 09/27/16 at 09:00 Pantoprazole Sodium (Protonix) 40 mg QHS PO Last administered on 10/04/16 19:41 ; Start 09/27/16 at 21:00 Polyethylene Glycol (miraLAX) 17 gm DAILY PO Last administered on 10/04/16 08: 08; Start 09/27/16 at 09:00 Non-Formulary Medication 2.5 mg QID NEB COPD; Start 09/27/16 at 09:00; Stop at 09:00; Status DC Vitamin D (Vitamin D3) 5,000 unit DAILY PO Last administered on 10/04/16 08:10 ; Start 09/27/16 at 09:00 Multivitamins/ Calcium (Thera-M Plus) 1 tab DAILY PO Last administered on 08:10; Start 09/27/16 at 09:00 Albuterol Sulfate (Ventolin) 2.5 mg RTQID NEB Last administered on 10/04/16 16: 30; Start 09/27/16 at 08:00 Mirtazapine (Remeron) 7.5 mg QHS PO Last administered on 09/27/16 20:07; Start 09/27/16 at 21:00; Stop 09/28/16 at 18:50; Status DC Mirtazapine (Remeron) 15 mg QHS PO Last administered on 10/04/16 19:41; Start 09/28/16 at 21:00 Divalproex Sodium (Depakote Sprinkles) 125 mg BID PO Last administered on 08:28; Start 09/29/16 at 21:00; Stop 10/03/16 at 18:17; Status DC Prenat Multivit/ [place]/Iron/Folic Ac (Multivitamin ) 1 tab DAILYBFRSUP PO Last administered on 10/04/16 16:59; Start 09/30/16 at 17:00 Artificial Tears (Refresh Classic) 1 drop PRN Q1HR PRN OU DRY EYE Last administered on 10/01/16 09:42; Start 10/01/16 at 09:45 Buspirone HCl (Buspar) 15 mg TID PO Last administered on 10/04/16 19:40; Start 10/03/16 at 16:00 Nystatin (Nystop) 1 jeb BID TP Last administered on 10/04/16 08:11; Start at 21:00 Divalproex Sodium (Depakote Sprinkles) 125 mg QID PO Last administered on 19:40; Start 10/03/16 at 21:00 Active Scripts Active Reported Advair 500-50 Diskus (Fluticasone/Salmeterol) 1 Each Disk.w.dev 1 Each IH BID LAST DOSE GIVEN: DATE: TIME: NEXT DOSE DUE: DATE: TIME: Quetiapine Fumarate 50 Mg Tablet 50 Mg PO [id number] Quetiapine Fumarate 100 Mg Tablet 100 Mg PO HS Mucinex (Guaifenesin) 600 Mg Tablet.er 1 Tab PO BID Buspirone Hcl 10 Mg Tablet 15 Mg PO TID Sertraline Hcl 100 Mg Tablet 100 Mg PO HS Pantoprazole Sodium 40 Mg Tablet.dr 40 Mg PO QHS Zyprexa Zydis (Olanzapine) 5 Mg Tab.rapdis 1.25 Mg PO PRN Q2HR PRN Max dose: 7.5mg/24hrs [place] Ultra Strength Crm (Methyl Salicylate/Menth/Camph) 57 Gm Cream..g. 1 Applic TP PRN QID PRN Milk Of Magnesia (Magnesium Hydroxide) 2,400 Mg/10 Ml Oral.susp 2,400 Mg PO PRN QHS PRN Mag-Al Plus Suspension (Mag Hydrox/Al Hydrox/Simeth) 30 Ml Oral.susp 15 Ml PO PRN AFTMEALHC PRN Lorazepam 0.5 Mg Tablet 0.25 Mg PO PRN Q2HR PRN Budesonide 0.5 Mg/2 Ml Ampul.neb 0.5 Mg NEB BID Albuterol Sulfate Neb Soln (Albuterol Sulfate) 2.5 Mg/3 Ml Vial.neb 2.5 Mg NEB PRN Q6HRS PRN Tylenol (Acetaminophen) 325 Mg Tablet 650 Mg PO PRN Q6HRS PRN Polyethylene Glycol 3350 17 Gm Powd.pack 17 Gm PO DAILY Melatonin 3 Mg Tablet 6 Mg PO QHS Lisinopril 20 Mg Tablet 20 Mg PO DAILY Fluticasone Propionate Nasal [place] (Fluticasone Propionate) 16 Gm [place].susp 2 [place] NS QHS Multivitamins (Multivitamin) 1 Each Tablet 1 Each PO DAILY Vitamin D3 (Cholecalciferol (Vitamin D3)) 5,000 Unit Tablet 5,000 Unit PO DAILY Aspirin 81 Mg Tab.chew 81 Mg PO DAILY Albuterol Sulfate Neb Soln (Albuterol Sulfate) 1.25 Mg/3 Ml Vial.neb 2.5 Mg NEB QID Diagnosis: Problems: (1) Major depressive disorder (2) Dementia with behavioral disturbance (3) Anxiety disorder (4) Dementia in Alzheimer's disease with delusions (5) Dementia in Alzheimer's disease with depression (6) Impulse control disorder CHARLINE VASQUEZ MD October 04, 2016 21:11
--- NOTE | 2016-10-05 00:16 | PN ---
DATE: 10/03/2016 This late entry for 10/03/2016 covers elements not covered in my initial note. SUBJECTIVE: The patient slept 3-3/4 hours previous night, anxious, attention seeking, wanting frequent breathing treatments, though she denied all of this as I met with her in the evening of 10/03/2016. REVIEW OF SYSTEMS: Shortness of breath, on O2 supplements, impaired ambulation, in her wheelchair. No CV, , pulmonary, eye system symptoms on review other than above. MENTAL STATUS EXAMINATION: Speech coherent, oriented to herself and situation. Abstraction fair, computation impaired, language function intact. Mood and affect still anxious, but showing some improvement. LABORATORY DATA: Reviewed. IMPRESSION: Major depressive disorder, recurrent, severe, in partial remission; anxiety disorder, unspecified; cognitive disorder, unspecified. The patient slept just 3-3/4 hours previous night, increase Remeron from 7.5 at bedtime to 15 at bedtime. Valproic acid level is subtherapeutic at 22, increase Depakote from 125 b.i.d. to 125 mg 4 times a day. Follow labs level. Continue Ativan p.r.n. Seroquel 50 mg t.i.d., 100 at bedtime, Zoloft 100 mg a day, BuSpar 15 t.i.d., melatonin 6 mg at bedtime. Adjust as clinically indicated. MAN Ino VASQUEZ MD DR: KHUSHBOO/jacqueline JOB#: [id number] / [id number]
[2016-10-05] MEDS: QUEtiapine 50 MG TABLET. PO SCH ×3 (05:14→16:58)
[2016-10-05] MEDS: ALBUTEROL SULFATE 2.5 MG/3 ML NEBU. NEB SCH ×4 (05:19→21:53)
[2016-10-05 07:03] VITALS: BP 137/53
[2016-10-05] MEDS: busPIRone 15 MG TABLET. PO SCH ×3 (08:31→19:34)
[2016-10-05] MEDS: CHOLECALCIFEROL (VITAMIN D3) 1,000 UNIT TABLET PO SCH (08:31)
[2016-10-05] MEDS: POLYETHYLENE GLYCOL 3350 17 GM PACKET. PO SCH (08:31)
[2016-10-05] MEDS: ASPIRIN 81 MG TAB.CHEW PO SCH (08:32)
[2016-10-05] MEDS: LISINOPRIL 20 MG TABLET PO SCH (08:32)
[2016-10-05] MEDS: DIVALPROEX 125 MG CAP.SPRINK PO SCH ×4 (08:32→19:35)
[2016-10-05] MEDS: MULTIVITAMIN with MINERAL TABLET. PO SCH (08:32)
[2016-10-05] MEDS: NYSTATIN TOPICAL POWDER 15GM BOTTLE. TP SCH ×2 (08:33→21:00)
[2016-10-05] MEDS: BUDESONIDE 0.5 MG/2 ML NEBU NEB SCH ×2 (10:50→21:53)
[2016-10-05 15:57] VITALS: BP 120/54
[2016-10-05] MEDS: ACETAMINOPHEN 325 MG TABLET PO PRN (16:29)
[2016-10-05] MEDS: PRENATAL MULTIVITAMIN TABLET. PO SCH (16:58)
[2016-10-05] MEDS: MELATONIN 3 MG TABLET PO SCH (19:34)
[2016-10-05] MEDS: PANTOPRAZOLE 40 MG TABLET. PO SCH (19:34)
[2016-10-05] MEDS: FLUTICASONE 50MCG/NASAL SPRAY 16GM BOTTLE. NS SCH (19:34)
[2016-10-05] MEDS: MIRTAZAPINE 15 MG TABLET PO SCH (19:34)
[2016-10-05] MEDS: QUEtiapine 100 MG TABLET. PO SCH (19:34)
[2016-10-05] MEDS: SERTRALINE 100 MG TABLET. PO SCH (19:35)
--- NOTE | 2016-10-05 22:04 | PDOC ---
Exam Maciel Demential Exam: Maciel Note: Please also refer to the separate dictated note~for this date of service dictated separately.~Patient seen individually. Discussed the patient with Nursing staff reviewed the chart.~Reviewed interim history and current functioning. Reviewed vital signs,~Labs/ Radiology~and current medications noted below. Continue current treatment with the changes noted in the dictated addendum note Assessment: Vital Signs: Vital Signs Date Time Temp Pulse Resp B/P (MAP) Pulse Ox O2 Delivery O2 Flow Rate FiO2 10/05/16 21:59 97 Nasal Cannula 2.0 10/05/16 15:57 98.4 86 20 120/54 (76) I&O Intake and Output 10/05/16 07:00 Intake Total 1200 ml Balance 1200 ml Intake Oral 1200 ml Current Medications: Meds: Current Medications Acetaminophen (Tylenol) 650 mg PRN Q6HRS PRN PO PAIN / TEMP; Start 09/26/16 at 21:15; Status Cancel Guaifenesin (Mucinex Er) 600 mg BID PO Last administered on 10/05/16 19:34; Start 09/27/16 at 09:00 Acetaminophen (Tylenol) 650 mg PRN Q6HRS PRN PO MILD PAIN/TEMP Last administered on 10/05/16 16:29; Start 09/26/16 at 23:30 Buspirone HCl (Buspar) 15 mg TID PO Last administered on 10/03/16 13:23; Start 09/27/16 at 09:00; Stop 10/03/16 at 15:45; Status DC Lorazepam (Ativan) 0.25 mg PRN Q2HR PRN PO ANXIETY/AGITATION Last administered on 10/04/16 04:08; Start 09/26/16 at 23:30 Melatonin 6 mg QHS PO Last administered on 10/05/16 19:34; Start 09/27/16 at 21 :00 Olanzapine (Zyprexa Zydis) 1.25 mg PRN Q2HR PRN PO PSYCHOSIS Last administered on 10/03/16 16:12; Start 09/26/16 at 23:30 Quetiapine Fumarate (SEROquel) 100 mg HS PO Last administered on 10/05/16 19: 34; Start 09/27/16 at 21:00 Sertraline HCl (Zoloft) 100 mg HS PO Last administered on 10/05/16 19:35; Start 09/27/16 at 21:00 Al Hydroxide/Mg Hydroxide (Mylanta Plus Xs) 15 ml PRN AFTMEALHC PRN PO DYSPEPSIA Last administered on 10/02/16 22:55; Start 09/26/16 at 23:30 Magnesium Hydroxide (Milk Of Magnesia) 2,400 mg PRN QHS PRN PO CONSTIPATION; Start 09/26/16 at 23:45 Multi-Ingredient Ointment (Analgesic [place]) 1 jeb PRN QID PRN TP MUSCLE PAIN; Start 09/26/16 at 23:45; Stop 09/26/16 at 23:45; Status DC Quetiapine Fumarate (SEROquel) 50 mg [id number] PO Last administered on 10/05/16 16:58; Start 09/27/16 at 07:00 Multi-Ingredient Ointment (Analgesic [place]) 1 jeb PRN QID PRN TP MUSCLE PAIN; Start 09/26/16 at 23:45 Acetaminophen (Tylenol) 650 mg PRN Q6HRS PRN PO PAIN / TEMP; Start 09/26/16 at 23:30; Status UNV Al Hydroxide/Mg Hydroxide (Mylanta Plus Xs) 15 ml PRN AFTMEALHC PRN PO DYSPEPSIA; Start 09/26/16 at 23:30; Status UNV Magnesium Hydroxide (Milk Of Magnesia) 2,400 mg PRN QHS PRN PO CONSTIPATION; Start 09/26/16 at 23:30; Status UNV Albuterol Sulfate (Ventolin) 2.5 mg PRN Q6HRS PRN NEB COPD Last administered on 09/27/16 05:24; Start 09/27/16 at 00:00 Aspirin (Children'S Aspirin) 81 mg DAILY PO Last administered on 10/05/16 08: 32; Start 09/27/16 at 09:00 Budesonide (Pulmicort) 0.5 mg BID NEB Last administered on 10/05/16 21:53; Start 09/27/16 at 09:00 Fluticasone Propionate (Flonase) 2 spray QHS NS Last administered on 10/05/16 19:34; Start 09/27/16 at 21:00 Lisinopril (Prinivil) 20 mg DAILY PO Last administered on 10/05/16 08:32; Start 09/27/16 at 09:00 Pantoprazole Sodium (Protonix) 40 mg QHS PO Last administered on 10/05/16 19: 34; Start 09/27/16 at 21:00 Polyethylene Glycol (miraLAX) 17 gm DAILY PO Last administered on 10/05/16 08: 31; Start 09/27/16 at 09:00 Non-Formulary Medication 2.5 mg QID NEB COPD; Start 09/27/16 at 09:00; Stop at 09:00; Status DC Vitamin D (Vitamin D3) 5,000 unit DAILY PO Last administered on 10/05/16 08:31 ; Start 09/27/16 at 09:00 Multivitamins/ Calcium (Thera-M Plus) 1 tab DAILY PO Last administered on 08:32; Start 09/27/16 at 09:00 Albuterol Sulfate (Ventolin) 2.5 mg RTQID NEB Last administered on 10/05/16 21 :53; Start 09/27/16 at 08:00 Mirtazapine (Remeron) 7.5 mg QHS PO Last administered on 09/27/16 20:07; Start 09/27/16 at 21:00; Stop 09/28/16 at 18:50; Status DC Mirtazapine (Remeron) 15 mg QHS PO Last administered on 10/05/16 19:34; Start 09/28/16 at 21:00 Divalproex Sodium (Depakote Sprinkles) 125 mg BID PO Last administered on 08:28; Start 09/29/16 at 21:00; Stop 10/03/16 at 18:17; Status DC Prenat Multivit/ [employer]/Iron/Folic Ac (Multivitamin ) 1 tab DAILYBFRSUP PO Last administered on 10/05/16 16:58; Start 09/30/16 at 17:00 Artificial Tears (Refresh Classic) 1 drop PRN Q1HR PRN OU DRY EYE Last administered on 10/01/16 09:42; Start 10/01/16 at 09:45 Buspirone HCl (Buspar) 15 mg TID PO Last administered on 10/05/16 19:34; Start 10/03/16 at 16:00 Nystatin (Nystop) 1 jeb BID TP Last administered on 10/05/16 08:33; Start 10/03 at 21:00 Divalproex Sodium (Depakote Sprinkles) 125 mg QID PO Last administered on 19:35; Start 10/03/16 at 21:00 Active Scripts Active Reported Advair 500-50 Diskus (Fluticasone/Salmeterol) 1 Each Disk.w.dev 1 Each IH BID LAST DOSE GIVEN: DATE: TIME: NEXT DOSE DUE: DATE: TIME: Quetiapine Fumarate 50 Mg Tablet 50 Mg PO [id number] Quetiapine Fumarate 100 Mg Tablet 100 Mg PO HS Mucinex (Guaifenesin) 600 Mg Tablet.er 1 Tab PO BID Buspirone Hcl 10 Mg Tablet 15 Mg PO TID Sertraline Hcl 100 Mg Tablet 100 Mg PO HS Pantoprazole Sodium 40 Mg Tablet.dr 40 Mg PO QHS Zyprexa Zydis (Olanzapine) 5 Mg Tab.rapdis 1.25 Mg PO PRN Q2HR PRN Max dose: 7.5mg/24hrs [place] Ultra Strength Crm (Methyl Salicylate/Menth/Camph) 57 Gm Cream..g. 1 Applic TP PRN QID PRN Milk Of Magnesia (Magnesium Hydroxide) 2,400 Mg/10 Ml Oral.susp 2,400 Mg PO PRN QHS PRN Mag-Al Plus Suspension (Mag Hydrox/Al Hydrox/Simeth) 30 Ml Oral.susp 15 Ml PO PRN AFTMEALHC PRN Lorazepam 0.5 Mg Tablet 0.25 Mg PO PRN Q2HR PRN Budesonide 0.5 Mg/2 Ml Ampul.neb 0.5 Mg NEB BID Albuterol Sulfate Neb Soln (Albuterol Sulfate) 2.5 Mg/3 Ml Vial.neb 2.5 Mg NEB PRN Q6HRS PRN Tylenol (Acetaminophen) 325 Mg Tablet 650 Mg PO PRN Q6HRS PRN Polyethylene Glycol 3350 17 Gm Powd.pack 17 Gm PO DAILY Melatonin 3 Mg Tablet 6 Mg PO QHS Lisinopril 20 Mg Tablet 20 Mg PO DAILY Fluticasone Propionate Nasal [place] (Fluticasone Propionate) 16 Gm [place].susp 2 [place] NS QHS Multivitamins (Multivitamin) 1 Each Tablet 1 Each PO DAILY Vitamin D3 (Cholecalciferol (Vitamin D3)) 5,000 Unit Tablet 5,000 Unit PO DAILY Aspirin 81 Mg Tab.chew 81 Mg PO DAILY Albuterol Sulfate Neb Soln (Albuterol Sulfate) 1.25 Mg/3 Ml Vial.neb 2.5 Mg NEB QID CHARLINE VASQUEZ MD October 05, 2016 22:04
[2016-10-06] MEDS: LORazepam 0.5 MG TABLET PO PRN (03:00)
[2016-10-06] MEDS: QUEtiapine 50 MG TABLET. PO SCH ×3 (05:43→16:47)
[2016-10-06 06:33] VITALS: BP 145/68
[2016-10-06 07:03] LABS: BASO # 0.1 x10^3/uL (0.0-0.2); BASO % 1 % (0-3); EOS # 0.5 x10^3/uL (0.0-0.7); EOS % 6 % (0-3); HEMATOCRIT 31.2 % (36.0-47.0); HEMOGLOBIN 10.6 g/dL (12.0-15.5); LYMPH # 1.9 x10^3/uL (1.0-4.8); LYMPH % 24 % (24-48); MEAN CORPUSCULAR HEMOGLOBIN 29 pg (25-35); MEAN CORPUSCULAR HGB CONC 34 g/dL (31-37); MEAN CORPUSCULAR VOLUME 85 fL (79-100); MONO # 0.8 x10^3/uL (0.0-1.1); MONO % 10 % (0-9); NEUT # 4.9 x10^3uL (1.8-7.7); NEUT % 60 % (31-73); PLATELET COUNT 304 x10^3/uL (140-400); RED BLOOD COUNT 3.68 x10^6/uL (3.50-5.40); WHITE BLOOD COUNT 8.2 x10^3/uL (4.0-11.0)
[2016-10-06 07:15] LABS: ALBUMIN 3.4 g/dL (3.4-5.0); ALBUMIN/GLOBULIN RATIO 1.2 (1.0-1.7); ALK PHOS 81 U/L (46-116); ALT (SGPT) 20 U/L (14-59); ANION GAP 3 (6-14); AST (SGOT) 18 U/L (15-37); BLOOD UREA NITROGEN 7 mg/dL (7-20); BUN/CREATININE RATIO 12 (6-20); CALCIUM 8.7 mg/dL (8.5-10.1); CARBON DIOXIDE 37 mmol/L (21-32); CHLORIDE 90 mmol/L (98-107); CREATININE 0.6 mg/dL (0.6-1.0); GFR 96.9; GLUCOSE 93 mg/dL (70-99); MAGNESIUM 1.9 mg/dL (1.8-2.4); POTASSIUM 4.6 mmol/L (3.5-5.1); SODIUM 130 mmol/L (136-145); TOTAL BILIRUBIN 0.4 mg/dL (0.2-1.0); TOTAL PROTEIN 6.3 g/dL (6.4-8.2)
[2016-10-06 07:16] LABS: VAL ACID 39 mcg/mL (50-100)
[2016-10-06] MEDS: PRENATAL MULTIVITAMIN TABLET. PO SCH (08:18)
[2016-10-06] MEDS: busPIRone 15 MG TABLET. PO SCH ×3 (08:19→19:16)
[2016-10-06] MEDS: MULTIVITAMIN with MINERAL TABLET. PO SCH (08:19)
[2016-10-06] MEDS: ASPIRIN 81 MG TAB.CHEW PO SCH (08:19)
[2016-10-06] MEDS: POLYETHYLENE GLYCOL 3350 17 GM PACKET. PO SCH (08:19)
[2016-10-06] MEDS: DIVALPROEX 125 MG CAP.SPRINK PO SCH ×3 (08:21→19:16)
[2016-10-06] MEDS: LISINOPRIL 20 MG TABLET PO SCH (08:22)
[2016-10-06] MEDS: CHOLECALCIFEROL (VITAMIN D3) 1,000 UNIT TABLET PO SCH (08:22)
[2016-10-06] MEDS: NYSTATIN TOPICAL POWDER 15GM BOTTLE. TP SCH ×3 (09:00→19:25)
--- NOTE | 2016-10-06 09:41 | PN ---
DATE: 10/04/2016 This is a late entry, covers the elements not covered in my initial note. SUBJECTIVE: Per nursing report, the patient was quite anxious the previous evening, needed Ativan p.r.n., requesting breathing treatments, and again during the day on 10/04/2016. The patient minimizes, denies all of this as it question to her. REVIEW OF SYSTEMS: Ambulation impaired. She remains on O2 supplements. No CV, , GI system symptoms on review. MENTAL STATUS EXAM: Reasonably oriented. Speech coherent, has some latency. Abstraction fair, computation impaired, language function intact. Mood and affect showing ongoing anxiety, but slightly improved. LABORATORY DATA: Reviewed. IMPRESSION: Unchanged from initial note. PLAN: Continue Zoloft, BuSpar, Seroquel, Ativan p.r.n., Remeron, along with Depakote has been increased and we are following labs level on the day 11 to reach a therapeutic level to help with mood lability. CHARLINE VASQUEZ MD DR: KHUSHBOO/jacqueline JOB#: [id number] / [id number]
[2016-10-06 10:17] LABS: AMORPHOUS SEDIMENT,UR PRESENT /HPF; BACTERIA,URINE 0 /HPF (0-FEW); BILIRUBIN,URINE NEG (NEG); CLARITY,URINE CLEAR; COLOR,URINE YELLOW; GLUCOSE,URINE NEG (NEG); NITRITE,URINE NEG (NEG); RBC,URINE 0 /HPF (0-2); SQUAMOUS EPITHELIAL CELL,UR OCC /LPF; UROBILINOGEN,URINE 0.2 mg/dL (0.2 mg/dL); WBC,URINE RARE /HPF (0-4)
[2016-10-06] MEDS: ALBUTEROL SULFATE 2.5 MG/3 ML NEBU. NEB SCH ×3 (10:25→21:58)
[2016-10-06] MEDS: BUDESONIDE 0.5 MG/2 ML NEBU NEB SCH ×2 (10:25→21:58)
[2016-10-06] MEDS: ACETAMINOPHEN 325 MG TABLET PO PRN (15:12)
[2016-10-06 16:21] VITALS: BP 154/52
[2016-10-06] MEDS: FLUTICASONE 50MCG/NASAL SPRAY 16GM BOTTLE. NS SCH (19:14)
[2016-10-06] MEDS: MELATONIN 3 MG TABLET PO SCH (19:15)
[2016-10-06] MEDS: PANTOPRAZOLE 40 MG TABLET. PO SCH (19:16)
[2016-10-06] MEDS: MIRTAZAPINE 15 MG TABLET PO SCH (19:17)
[2016-10-06] MEDS: QUEtiapine 100 MG TABLET. PO SCH (19:17)
[2016-10-06] MEDS: SERTRALINE 100 MG TABLET. PO SCH (19:17)
--- NOTE | 2016-10-06 21:06 | PDOC ---
Exam Maciel Demential Exam: Maciel Note: Please also refer to the separate dictated note~for this date of service dictated separately.~Patient seen individually. Discussed the patient with Nursing staff reviewed the chart.~Reviewed interim history and current functioning. Reviewed vital signs,~Labs/ Radiology~and current medications noted below. Continue current treatment with the changes noted in the dictated addendum note Assessment: Vital Signs: Vital Signs Date Time Temp Pulse Resp B/P (MAP) Pulse Ox O2 Delivery O2 Flow Rate FiO2 10/06/16 16:21 97.7 94 22 154/52 (86) 95 2.0 10/06/16 16:07 Nasal Cannula I&O Intake and Output 10/06/16 07:00 Intake Total 1320 ml Balance 1320 ml Intake Oral 1320 ml Labs: Laboratory Tests Test 10/06/16 06:46 10/06/16 09:45 White Blood Count 8.2 x10^3/uL (4.0-11.0) Red Blood Count 3.68 x10^6/uL (3.50-5.40) Hemoglobin 10.6 g/dL (12.0-15.5) L Hematocrit 31.2 % (36.0-47.0) L Mean Corpuscular Volume 85 fL (79-100) Mean Corpuscular Hemoglobin 29 pg (25-35) Mean Corpuscular Hemoglobin Concent 34 g/dL (31-37) Red Cell Distribution Width 14.0 % (11.5-14.5) Platelet Count 304 x10^3/uL (140-400) Neutrophils (%) (Auto) 60 % (31-73) Lymphocytes (%) (Auto) 24 % (24-48) Monocytes (%) (Auto) 10 % (0-9) H Eosinophils (%) (Auto) 6 % (0-3) H Basophils (%) (Auto) 1 % (0-3) Neutrophils # (Auto) 4.9 x10^3uL (1.8-7.7) Lymphocytes # (Auto) 1.9 x10^3/uL (1.0-4.8) Monocytes # (Auto) 0.8 x10^3/uL (0.0-1.1) Eosinophils # (Auto) 0.5 x10^3/uL (0.0-0.7) Basophils # (Auto) 0.1 x10^3/uL (0.0-0.2) Sodium Level 130 mmol/L (136-145) L Potassium Level 4.6 mmol/L (3.5-5.1) Chloride Level 90 mmol/L (98-107) L Carbon Dioxide Level 37 mmol/L (21-32) H Anion Gap 3 (6-14) L Blood Urea Nitrogen 7 mg/dL (7-20) Creatinine 0.6 mg/dL (0.6-1.0) Estimated GFR (Cockcroft-Gault) 96.9 BUN/Creatinine Ratio 12 (6-20) Glucose Level 93 mg/dL (70-99) Calcium Level 8.7 mg/dL (8.5-10.1) Magnesium Level 1.9 mg/dL (1.8-2.4) Total Bilirubin 0.4 mg/dL (0.2-1.0) Aspartate Amino Transferase (AST) 18 U/L (15-37) Alanine Aminotransferase (ALT) 20 U/L (14-59) Alkaline Phosphatase 81 U/L (46-116) Total Protein 6.3 g/dL (6.4-8.2) L Albumin 3.4 g/dL (3.4-5.0) Albumin/Globulin Ratio 1.2 (1.0-1.7) Valproic Acid Level 39 mcg/mL (50-100) L Valproic Acid Last Dose Date 10/05/16 Valproic Acid Last Dose Time 2100 Urine Collection Type Unknown Urine Color Yellow Urine Clarity Clear Urine pH 8.0 Urine Specific Walker 1.015 Urine Protein Neg (NEG-TRACE) Urine Glucose (UA) Neg mg/dL (NEG) Urine Ketones (Stick) Neg mg/dL (NEG) Urine Blood Neg (NEG) Urine Nitrite Neg (NEG) Urine Bilirubin Neg (NEG) Urine Urobilinogen Dipstick 0.2 mg/dL (0.2 mg/dL) Urine Leukocyte Esterase Neg (NEG) Urine RBC 0 /HPF (0-2) Urine WBC Rare /HPF (0-4) Urine Squamous Epithelial Cells Occ /LPF Urine Amorphous Sediment Present /HPF Urine Bacteria 0 /HPF (0-FEW) Current Medications: Meds: Current Medications Acetaminophen (Tylenol) 650 mg PRN Q6HRS PRN PO PAIN / TEMP; Start 09/26/16 at 21:15; Status Cancel Guaifenesin (Mucinex Er) 600 mg BID PO Last administered on 10/06/16 19:16; Start 09/27/16 at 09:00 Acetaminophen (Tylenol) 650 mg PRN Q6HRS PRN PO MILD PAIN/TEMP Last administered on 10/06/16 15:12; Start 09/26/16 at 23:30 Buspirone HCl (Buspar) 15 mg TID PO Last administered on 10/03/16 13:23; Start 09/27/16 at 09:00; Stop 10/03/16 at 15:45; Status DC Lorazepam (Ativan) 0.25 mg PRN Q2HR PRN PO ANXIETY/AGITATION Last administered on 10/06/16 03:00; Start 09/26/16 at 23:30 Melatonin 6 mg QHS PO Last administered on 10/06/16 19:15; Start 09/27/16 at 21 :00 Olanzapine (Zyprexa Zydis) 1.25 mg PRN Q2HR PRN PO PSYCHOSIS Last administered on 10/03/16 16:12; Start 09/26/16 at 23:30 Quetiapine Fumarate (SEROquel) 100 mg HS PO Last administered on 10/06/16 19: 17; Start 09/27/16 at 21:00 Sertraline HCl (Zoloft) 100 mg HS PO Last administered on 10/06/16 19:17; Start 09/27/16 at 21:00 Al Hydroxide/Mg Hydroxide (Mylanta Plus Xs) 15 ml PRN AFTMEALHC PRN PO DYSPEPSIA Last administered on 10/02/16 22:55; Start 09/26/16 at 23:30 Magnesium Hydroxide (Milk Of Magnesia) 2,400 mg PRN QHS PRN PO CONSTIPATION; Start 09/26/16 at 23:45 Multi-Ingredient Ointment (Analgesic [place]) 1 jeb PRN QID PRN TP MUSCLE PAIN; Start 09/26/16 at 23:45; Stop 09/26/16 at 23:45; Status DC Quetiapine Fumarate (SEROquel) 50 mg [id number] PO Last administered on 10/06/16 05:43; Start 09/27/16 at 07:00; Stop 10/06/16 at 11:05; Status DC Multi-Ingredient Ointment (Analgesic [place]) 1 jeb PRN QID PRN TP MUSCLE PAIN; Start 09/26/16 at 23:45 Acetaminophen (Tylenol) 650 mg PRN Q6HRS PRN PO PAIN / TEMP; Start 09/26/16 at 23:30; Status UNV Al Hydroxide/Mg Hydroxide (Mylanta Plus Xs) 15 ml PRN AFTMEALHC PRN PO DYSPEPSIA; Start 09/26/16 at 23:30; Status UNV Magnesium Hydroxide (Milk Of Magnesia) 2,400 mg PRN QHS PRN PO CONSTIPATION; Start 09/26/16 at 23:30; Status UNV Albuterol Sulfate (Ventolin) 2.5 mg PRN Q6HRS PRN NEB COPD Last administered on 09/27/16 05:24; Start 09/27/16 at 00:00 Aspirin (Children'S Aspirin) 81 mg DAILY PO Last administered on 10/06/16 08: 19; Start 09/27/16 at 09:00 Budesonide (Pulmicort) 0.5 mg BID NEB Last administered on 10/06/16 10:25; Start 09/27/16 at 09:00 Fluticasone Propionate (Flonase) 2 spray QHS NS Last administered on 10/06/16 19:14; Start 09/27/16 at 21:00 Lisinopril (Prinivil) 20 mg DAILY PO Last administered on 10/06/16 08:22; Start 09/27/16 at 09:00 Pantoprazole Sodium (Protonix) 40 mg QHS PO Last administered on 10/06/16 19: 16; Start 09/27/16 at 21:00 Polyethylene Glycol (miraLAX) 17 gm DAILY PO Last administered on 10/06/16 08: 19; Start 09/27/16 at 09:00 Non-Formulary Medication 2.5 mg QID NEB COPD; Start 09/27/16 at 09:00; Stop at 09:00; Status DC Vitamin D (Vitamin D3) 5,000 unit DAILY PO Last administered on 10/06/16 08:22 ; Start 09/27/16 at 09:00 Multivitamins/ Calcium (Thera-M Plus) 1 tab DAILY PO Last administered on 08:19; Start 09/27/16 at 09:00 Albuterol Sulfate (Ventolin) 2.5 mg RTQID NEB Last administered on 10/06/16 16 :04; Start 09/27/16 at 08:00 Mirtazapine (Remeron) 7.5 mg QHS PO Last administered on 09/27/16 20:07; Start 09/27/16 at 21:00; Stop 09/28/16 at 18:50; Status DC Mirtazapine (Remeron) 15 mg QHS PO Last administered on 10/06/16 19:17; Start 09/28/16 at 21:00 Divalproex Sodium (Depakote Sprinkles) 125 mg BID PO Last administered on 08:28; Start 09/29/16 at 21:00; Stop 10/03/16 at 18:17; Status DC Prenat Multivit/ [employer]/Iron/Folic Ac (Multivitamin ) 1 tab DAILYBFRSUP PO Last administered on 10/06/16 08:18; Start 09/30/16 at 17:00 Artificial Tears (Refresh Classic) 1 drop PRN Q1HR PRN OU DRY EYE Last administered on 10/01/16 09:42; Start 10/01/16 at 09:45 Buspirone HCl (Buspar) 15 mg TID PO Last administered on 10/06/16 19:16; Start 10/03/16 at 16:00 Nystatin (Nystop) 1 jeb BID TP Last administered on 10/06/16 19:25; Start 10/03 at 21:00 Divalproex Sodium (Depakote Sprinkles) 125 mg QID PO Last administered on 08:21; Start 10/03/16 at 21:00; Stop 10/06/16 at 11:05; Status DC Divalproex Sodium (Depakote Sprinkles) 250 mg TID PO Last administered on 19:16; Start 10/06/16 at 14:00 Quetiapine Fumarate (SEROquel) 62.5 mg [id number] PO Last administered on 16:47; Start 10/06/16 at 13:00 Active Scripts Active Reported Advair 500-50 Diskus (Fluticasone/Salmeterol) 1 Each Disk.w.dev 1 Each IH BID LAST DOSE GIVEN: DATE: TIME: NEXT DOSE DUE: DATE: TIME: Quetiapine Fumarate 50 Mg Tablet 50 Mg PO [id number] Quetiapine Fumarate 100 Mg Tablet 100 Mg PO HS Mucinex (Guaifenesin) 600 Mg Tablet.er 1 Tab PO BID Buspirone Hcl 10 Mg Tablet 15 Mg PO TID Sertraline Hcl 100 Mg Tablet 100 Mg PO HS Pantoprazole Sodium 40 Mg Tablet.dr 40 Mg PO QHS Zyprexa Zydis (Olanzapine) 5 Mg Tab.rapdis 1.25 Mg PO PRN Q2HR PRN Max dose: 7.5mg/24hrs [place] Ultra Strength Crm (Methyl Salicylate/Menth/Camph) 57 Gm Cream..g. 1 Applic TP PRN QID PRN Milk Of Magnesia (Magnesium Hydroxide) 2,400 Mg/10 Ml Oral.susp 2,400 Mg PO PRN QHS PRN Mag-Al Plus Suspension (Mag Hydrox/Al Hydrox/Simeth) 30 Ml Oral.susp 15 Ml PO PRN AFTMEALHC PRN Lorazepam 0.5 Mg Tablet 0.25 Mg PO PRN Q2HR PRN Budesonide 0.5 Mg/2 Ml Ampul.neb 0.5 Mg NEB BID Albuterol Sulfate Neb Soln (Albuterol Sulfate) 2.5 Mg/3 Ml Vial.neb 2.5 Mg NEB PRN Q6HRS PRN Tylenol (Acetaminophen) 325 Mg Tablet 650 Mg PO PRN Q6HRS PRN Polyethylene Glycol 3350 17 Gm Powd.pack 17 Gm PO DAILY Melatonin 3 Mg Tablet 6 Mg PO QHS Lisinopril 20 Mg Tablet 20 Mg PO DAILY Fluticasone Propionate Nasal [place] (Fluticasone Propionate) 16 Gm [place].susp 2 [place] NS QHS Multivitamins (Multivitamin) 1 Each Tablet 1 Each PO DAILY Vitamin D3 (Cholecalciferol (Vitamin D3)) 5,000 Unit Tablet 5,000 Unit PO DAILY Aspirin 81 Mg Tab.chew 81 Mg PO DAILY Albuterol Sulfate Neb Soln (Albuterol Sulfate) 1.25 Mg/3 Ml Vial.neb 2.5 Mg NEB QID CHARLINE VASQUEZ MD October 06, 2016 21:06
[2016-10-07] MEDS: QUEtiapine 50 MG TABLET. PO SCH ×3 (05:44→16:48)
[2016-10-07] MEDS: ALBUTEROL SULFATE 2.5 MG/3 ML NEBU. NEB SCH ×4 (05:45→19:57)
[2016-10-07 06:43] VITALS: BP 155/78
[2016-10-07] MEDS: MULTIVITAMIN with MINERAL TABLET. PO SCH (09:01)
[2016-10-07] MEDS: CHOLECALCIFEROL (VITAMIN D3) 1,000 UNIT TABLET PO SCH (09:01)
[2016-10-07] MEDS: LISINOPRIL 20 MG TABLET PO SCH (09:02)
[2016-10-07] MEDS: busPIRone 15 MG TABLET. PO SCH ×3 (09:02→20:39)
[2016-10-07] MEDS: DIVALPROEX 125 MG CAP.SPRINK PO SCH ×3 (09:02→20:39)
[2016-10-07] MEDS: POLYETHYLENE GLYCOL 3350 17 GM PACKET. PO SCH (09:02)
[2016-10-07] MEDS: ASPIRIN 81 MG TAB.CHEW PO SCH (09:02)
[2016-10-07] MEDS: BUDESONIDE 0.5 MG/2 ML NEBU NEB SCH ×2 (11:33→19:57)
[2016-10-07] MEDS: NYSTATIN TOPICAL POWDER 15GM BOTTLE. TP SCH ×2 (12:24→20:45)
[2016-10-07] MEDS: LORazepam 0.5 MG TABLET PO PRN (13:53)
[2016-10-07 15:37] VITALS: BP 121/65
[2016-10-07] MEDS: PRENATAL MULTIVITAMIN TABLET. PO SCH (16:48)
[2016-10-07] MEDS: PANTOPRAZOLE 40 MG TABLET. PO SCH (20:39)
[2016-10-07] MEDS: QUEtiapine 100 MG TABLET. PO SCH (20:39)
[2016-10-07] MEDS: MIRTAZAPINE 15 MG TABLET PO SCH (20:39)
[2016-10-07] MEDS: SERTRALINE 100 MG TABLET. PO SCH (20:39)
[2016-10-07] MEDS: MELATONIN 3 MG TABLET PO SCH (20:40)
[2016-10-07] MEDS: FLUTICASONE 50MCG/NASAL SPRAY 16GM BOTTLE. NS SCH (20:44)
--- NOTE | 2016-10-07 21:07 | PDOC ---
Exam Maciel Demential Exam: Maciel Note: Please also refer to the separate dictated note~for this date of service dictated separately.~Patient seen individually. Discussed the patient with Nursing staff reviewed the chart.~Reviewed interim history and current functioning. Reviewed vital signs,~Labs/ Radiology~and current medications noted below. Continue current treatment with the changes noted in the dictated addendum note Assessment: Vital Signs: Vital Signs Date Time Temp Pulse Resp B/P (MAP) Pulse Ox O2 Delivery O2 Flow Rate FiO2 10/07/16 19:57 98 Nasal Cannula 2.0 10/07/16 15:37 97.0 86 22 121/65 (83) I&O Intake and Output 10/07/16 07:00 Intake Total 1200 ml Balance 1200 ml Intake Oral 1200 ml Current Medications: Meds: Current Medications Acetaminophen (Tylenol) 650 mg PRN Q6HRS PRN PO PAIN / TEMP; Start 09/26/16 at 21:15; Status Cancel Guaifenesin (Mucinex Er) 600 mg BID PO Last administered on 10/07/16 20:39; Start 09/27/16 at 09:00 Acetaminophen (Tylenol) 650 mg PRN Q6HRS PRN PO MILD PAIN/TEMP Last administered on 10/06/16 15:12; Start 09/26/16 at 23:30 Buspirone HCl (Buspar) 15 mg TID PO Last administered on 10/03/16 13:23; Start 09/27/16 at 09:00; Stop 10/03/16 at 15:45; Status DC Lorazepam (Ativan) 0.25 mg PRN Q2HR PRN PO ANXIETY/AGITATION Last administered on 10/07/16 13:53; Start 09/26/16 at 23:30 Melatonin 6 mg QHS PO Last administered on 10/07/16 20:40; Start 09/27/16 at 21 :00 Olanzapine (Zyprexa Zydis) 1.25 mg PRN Q2HR PRN PO PSYCHOSIS Last administered on 10/03/16 16:12; Start 09/26/16 at 23:30 Quetiapine Fumarate (SEROquel) 100 mg HS PO Last administered on 10/07/16 20: 39; Start 09/27/16 at 21:00 Sertraline HCl (Zoloft) 100 mg HS PO Last administered on 10/07/16 20:39; Start 09/27/16 at 21:00 Al Hydroxide/Mg Hydroxide (Mylanta Plus Xs) 15 ml PRN AFTMEALHC PRN PO DYSPEPSIA Last administered on 10/02/16 22:55; Start 09/26/16 at 23:30 Magnesium Hydroxide (Milk Of Magnesia) 2,400 mg PRN QHS PRN PO CONSTIPATION; Start 09/26/16 at 23:45 Multi-Ingredient Ointment (Analgesic [place]) 1 jeb PRN QID PRN TP MUSCLE PAIN; Start 09/26/16 at 23:45; Stop 09/26/16 at 23:45; Status DC Quetiapine Fumarate (SEROquel) 50 mg [id number] PO Last administered on 10/06/16 05:43; Start 09/27/16 at 07:00; Stop 10/06/16 at 11:05; Status DC Multi-Ingredient Ointment (Analgesic [place]) 1 jeb PRN QID PRN TP MUSCLE PAIN; Start 09/26/16 at 23:45 Acetaminophen (Tylenol) 650 mg PRN Q6HRS PRN PO PAIN / TEMP; Start 09/26/16 at 23:30; Status UNV Al Hydroxide/Mg Hydroxide (Mylanta Plus Xs) 15 ml PRN AFTMEALHC PRN PO DYSPEPSIA; Start 09/26/16 at 23:30; Status UNV Magnesium Hydroxide (Milk Of Magnesia) 2,400 mg PRN QHS PRN PO CONSTIPATION; Start 09/26/16 at 23:30; Status UNV Albuterol Sulfate (Ventolin) 2.5 mg PRN Q6HRS PRN NEB COPD Last administered on 09/27/16 05:24; Start 09/27/16 at 00:00 Aspirin (Children'S Aspirin) 81 mg DAILY PO Last administered on 10/07/16 09: 02; Start 09/27/16 at 09:00 Budesonide (Pulmicort) 0.5 mg BID NEB Last administered on 10/07/16 19:57; Start 09/27/16 at 09:00 Fluticasone Propionate (Flonase) 2 spray QHS NS Last administered on 10/07/16 20:44; Start 09/27/16 at 21:00 Lisinopril (Prinivil) 20 mg DAILY PO Last administered on 10/07/16 09:02; Start 09/27/16 at 09:00 Pantoprazole Sodium (Protonix) 40 mg QHS PO Last administered on 10/07/16 20: 39; Start 09/27/16 at 21:00 Polyethylene Glycol (miraLAX) 17 gm DAILY PO Last administered on 10/07/16 09: 02; Start 09/27/16 at 09:00 Non-Formulary Medication 2.5 mg QID NEB COPD; Start 09/27/16 at 09:00; Stop at 09:00; Status DC Vitamin D (Vitamin D3) 5,000 unit DAILY PO Last administered on 10/07/16 09:01 ; Start 09/27/16 at 09:00 Multivitamins/ Calcium (Thera-M Plus) 1 tab DAILY PO Last administered on 09:01; Start 09/27/16 at 09:00 Albuterol Sulfate (Ventolin) 2.5 mg RTQID NEB Last administered on 10/07/16 19 :57; Start 09/27/16 at 08:00 Mirtazapine (Remeron) 7.5 mg QHS PO Last administered on 09/27/16 20:07; Start 09/27/16 at 21:00; Stop 09/28/16 at 18:50; Status DC Mirtazapine (Remeron) 15 mg QHS PO Last administered on 10/07/16 20:39; Start 09/28/16 at 21:00 Divalproex Sodium (Depakote Sprinkles) 125 mg BID PO Last administered on 08:28; Start 09/29/16 at 21:00; Stop 10/03/16 at 18:17; Status DC Prenat Multivit/ [place]/Iron/Folic Ac (Multivitamin ) 1 tab DAILYBFRSUP PO Last administered on 10/07/16 16:48; Start 09/30/16 at 17:00 Artificial Tears (Refresh Classic) 1 drop PRN Q1HR PRN OU DRY EYE Last administered on 10/01/16 09:42; Start 10/01/16 at 09:45 Buspirone HCl (Buspar) 15 mg TID PO Last administered on 10/07/16 20:39; Start 10/03/16 at 16:00 Nystatin (Nystop) 1 jeb BID TP Last administered on 10/07/16 20:45; Start 10/03 at 21:00 Divalproex Sodium (Depakote Sprinkles) 125 mg QID PO Last administered on 08:21; Start 10/03/16 at 21:00; Stop 10/06/16 at 11:05; Status DC Divalproex Sodium (Depakote Sprinkles) 250 mg TID PO Last administered on 20:39; Start 10/06/16 at 14:00 Quetiapine Fumarate (SEROquel) 62.5 mg [id number] PO Last administered on 16:48; Start 10/06/16 at 13:00 Active Scripts Active Reported Advair 500-50 Diskus (Fluticasone/Salmeterol) 1 Each Disk.w.dev 1 Each IH BID LAST DOSE GIVEN: DATE: TIME: NEXT DOSE DUE: DATE: TIME: Quetiapine Fumarate 50 Mg Tablet 50 Mg PO [id number] Quetiapine Fumarate 100 Mg Tablet 100 Mg PO HS Mucinex (Guaifenesin) 600 Mg Tablet.er 1 Tab PO BID Buspirone Hcl 10 Mg Tablet 15 Mg PO TID Sertraline Hcl 100 Mg Tablet 100 Mg PO HS Pantoprazole Sodium 40 Mg Tablet.dr 40 Mg PO QHS Zyprexa Zydis (Olanzapine) 5 Mg Tab.rapdis 1.25 Mg PO PRN Q2HR PRN Max dose: 7.5mg/24hrs [place] Ultra Strength Crm (Methyl Salicylate/Menth/Camph) 57 Gm Cream..g. 1 Applic TP PRN QID PRN Milk Of Magnesia (Magnesium Hydroxide) 2,400 Mg/10 Ml Oral.susp 2,400 Mg PO PRN QHS PRN Mag-Al Plus Suspension (Mag Hydrox/Al Hydrox/Simeth) 30 Ml Oral.susp 15 Ml PO PRN AFTMEALHC PRN Lorazepam 0.5 Mg Tablet 0.25 Mg PO PRN Q2HR PRN Budesonide 0.5 Mg/2 Ml Ampul.neb 0.5 Mg NEB BID Albuterol Sulfate Neb Soln (Albuterol Sulfate) 2.5 Mg/3 Ml Vial.neb 2.5 Mg NEB PRN Q6HRS PRN Tylenol (Acetaminophen) 325 Mg Tablet 650 Mg PO PRN Q6HRS PRN Polyethylene Glycol 3350 17 Gm Powd.pack 17 Gm PO DAILY Melatonin 3 Mg Tablet 6 Mg PO QHS Lisinopril 20 Mg Tablet 20 Mg PO DAILY Fluticasone Propionate Nasal [place] (Fluticasone Propionate) 16 Gm [place].susp 2 [place] NS QHS Multivitamins (Multivitamin) 1 Each Tablet 1 Each PO DAILY Vitamin D3 (Cholecalciferol (Vitamin D3)) 5,000 Unit Tablet 5,000 Unit PO DAILY Aspirin 81 Mg Tab.chew 81 Mg PO DAILY Albuterol Sulfate Neb Soln (Albuterol Sulfate) 1.25 Mg/3 Ml Vial.neb 2.5 Mg NEB QID CHARLINE VASQUEZ MD October 07, 2016 21:07
[2016-10-08] MEDS: ALBUTEROL SULFATE 2.5 MG/3 ML NEBU. NEB SCH ×4 (04:48→22:01)
[2016-10-08] MEDS: QUEtiapine 50 MG TABLET. PO SCH ×3 (06:23→17:21)
[2016-10-08 06:26] VITALS: BP 138/66
[2016-10-08] MEDS: CHOLECALCIFEROL (VITAMIN D3) 1,000 UNIT TABLET PO SCH (08:49)
[2016-10-08] MEDS: busPIRone 15 MG TABLET. PO SCH ×3 (08:50→20:53)
[2016-10-08] MEDS: LISINOPRIL 20 MG TABLET PO SCH (08:50)
[2016-10-08] MEDS: DIVALPROEX 125 MG CAP.SPRINK PO SCH ×3 (08:50→20:53)
[2016-10-08] MEDS: ASPIRIN 81 MG TAB.CHEW PO SCH (08:50)
[2016-10-08] MEDS: POLYETHYLENE GLYCOL 3350 17 GM PACKET. PO SCH (08:50)
[2016-10-08] MEDS: MULTIVITAMIN with MINERAL TABLET. PO SCH (08:50)
--- NOTE | 2016-10-08 08:55 | PN ---
DATE: 10/05/2016 PSYCHIATRIC PROGRESS NOTE This is late entry of 10/05/2016, covers elements not covered in my initial note. SUBJECTIVE: The patient is compliant with her medications, frequently asking for breathing treatments, anxious, having frequent urination. We will defer to Dr. Todd. REVIEW OF SYSTEMS: Shortness of breath, impaired ambulation, is on oxygen supplements, complained of frequency of urination. No CV, eye, ENT system symptoms on review. MENTAL STATUS EXAMINATION: Oriented to herself and situation. Speech is coherent, rapid at times, anxious. Abstraction fair, computation impaired, language function intact. Mood and affect still anxious, a little labile. LABORATORY DATA: Reviewed. IMPRESSION: Unchanged from initial note. PLAN: Continue psychotropics mentioned in my initial note. MAN Ino VASQUEZ MD DR: KHUSHBOO/jacqueline JOB#: [id number] / [id number]
--- NOTE | 2016-10-08 08:58 | PN ---
DATE: 10/06/2016 PSYCHIATRIC PROGRESS NOTE This is a late entry 10/06/2016, covers elements not covered in my initial note. SUBJECTIVE: The patient was staffed at a treatment team meeting with the entire team and seen individually. Sleeping about 5-6 hours but previous night she slept 2-1/2 hours, up at 3:00 a.m. and received Ativan. Sodium somewhat low at 130. Deferred to Dr. Todd. Frequently demanding breathing treatments and frequently wanting to be toileted. REVIEW OF SYSTEMS: Short of breath, on O2 supplements. Impaired ambulation. No CV, eye, ENT system symptoms on review. MENTAL STATUS EXAM: Reasonably oriented. Speech is coherent, at times a little pressured. Abstraction fair, computation impaired, language function intact. Mood and affect still somewhat anxious, labile. LABORATORY DATA: Unchanged from initial note. PLAN: Continue psychotropics mentioned in my initial, but valproic acid level is subtherapeutic, increase Depakote from 125 mg four times a day to 250 mg three times a day and Seroquel from 50 mg t.i.d. to 100 mg continues at bedtime. Adjust further as clinically indicated. CHARLINE VASQUEZ MD DR: KHUSHBOO/jacqueline JOB#: [id number] / [id number]
[2016-10-08] MEDS: NYSTATIN TOPICAL POWDER 15GM BOTTLE. TP SCH ×2 (09:00→20:56)
[2016-10-08] MEDS: BUDESONIDE 0.5 MG/2 ML NEBU NEB SCH ×2 (09:48→22:01)
[2016-10-08] MEDS: MAG HYDROX/AL HYDROX/SIMETH 30 ML ORAL.SUSP PO PRN (12:33)
[2016-10-08] MEDS: PRENATAL MULTIVITAMIN TABLET. PO SCH (13:46)
[2016-10-08] MEDS: LORazepam 0.5 MG TABLET PO PRN (14:52)
[2016-10-08 16:06] VITALS: BP 166/75
[2016-10-08] MEDS: MELATONIN 3 MG TABLET PO SCH (20:52)
[2016-10-08] MEDS: QUEtiapine 100 MG TABLET. PO SCH (20:53)
[2016-10-08] MEDS: PANTOPRAZOLE 40 MG TABLET. PO SCH (20:53)
[2016-10-08] MEDS: MIRTAZAPINE 15 MG TABLET PO SCH (20:53)
--- NOTE | 2016-10-08 20:54 | PDOC ---
Exam Maciel Demential Exam: Maciel Note: Please also refer to the separate dictated note~for this date of service dictated separately.~Patient seen individually. Discussed the patient with Nursing staff reviewed the chart.~Reviewed interim history and current functioning. Reviewed vital signs,~Labs/ Radiology~and current medications noted below. Continue current treatment with the changes noted in the dictated addendum note Assessment: Vital Signs: Vital Signs Date Time Temp Pulse Resp B/P (MAP) Pulse Ox O2 Delivery O2 Flow Rate FiO2 10/08/16 16:06 98.0 93 24 166/75 (105) 98 10/08/16 15:51 Nasal Cannula 2.0 I&O Intake and Output 10/08/16 07:00 Intake Total 1680 ml Balance 1680 ml Intake Oral 1680 ml # Voids 1 Current Medications: Meds: Current Medications Acetaminophen (Tylenol) 650 mg PRN Q6HRS PRN PO PAIN / TEMP; Start 09/26/16 at 21:15; Status Cancel Guaifenesin (Mucinex Er) 600 mg BID PO Last administered on 10/08/16 08:49; Start 09/27/16 at 09:00 Acetaminophen (Tylenol) 650 mg PRN Q6HRS PRN PO MILD PAIN/TEMP Last administered on 10/06/16 15:12; Start 09/26/16 at 23:30 Buspirone HCl (Buspar) 15 mg TID PO Last administered on 10/03/16 13:23; Start 09/27/16 at 09:00; Stop 10/03/16 at 15:45; Status DC Lorazepam (Ativan) 0.25 mg PRN Q2HR PRN PO ANXIETY/AGITATION Last administered on 10/08/16 14:52; Start 09/26/16 at 23:30 Melatonin 6 mg QHS PO Last administered on 10/07/16 20:40; Start 09/27/16 at 21 :00 Olanzapine (Zyprexa Zydis) 1.25 mg PRN Q2HR PRN PO PSYCHOSIS Last administered on 10/03/16 16:12; Start 09/26/16 at 23:30 Quetiapine Fumarate (SEROquel) 100 mg HS PO Last administered on 10/07/16 20: 39; Start 09/27/16 at 21:00 Sertraline HCl (Zoloft) 100 mg HS PO Last administered on 10/07/16 20:39; Start 09/27/16 at 21:00; Stop 10/08/16 at 19:00; Status DC Al Hydroxide/Mg Hydroxide (Mylanta Plus Xs) 15 ml PRN AFTMEALHC PRN PO DYSPEPSIA Last administered on 10/08/16 12:33; Start 09/26/16 at 23:30 Magnesium Hydroxide (Milk Of Magnesia) 2,400 mg PRN QHS PRN PO CONSTIPATION; Start 09/26/16 at 23:45 Multi-Ingredient Ointment (Analgesic [place]) 1 jeb PRN QID PRN TP MUSCLE PAIN; Start 09/26/16 at 23:45; Stop 09/26/16 at 23:45; Status DC Quetiapine Fumarate (SEROquel) 50 mg [id number] PO Last administered on 10/06/16 05:43; Start 09/27/16 at 07:00; Stop 10/06/16 at 11:05; Status DC Multi-Ingredient Ointment (Analgesic [place]) 1 jeb PRN QID PRN TP MUSCLE PAIN; Start 09/26/16 at 23:45 Acetaminophen (Tylenol) 650 mg PRN Q6HRS PRN PO PAIN / TEMP; Start 09/26/16 at 23:30; Status UNV Al Hydroxide/Mg Hydroxide (Mylanta Plus Xs) 15 ml PRN AFTMEALHC PRN PO DYSPEPSIA; Start 09/26/16 at 23:30; Status UNV Magnesium Hydroxide (Milk Of Magnesia) 2,400 mg PRN QHS PRN PO CONSTIPATION; Start 09/26/16 at 23:30; Status UNV Albuterol Sulfate (Ventolin) 2.5 mg PRN Q6HRS PRN NEB COPD Last administered on 09/27/16 05:24; Start 09/27/16 at 00:00 Aspirin (Children'S Aspirin) 81 mg DAILY PO Last administered on 10/08/16 08: 50; Start 09/27/16 at 09:00 Budesonide (Pulmicort) 0.5 mg BID NEB Last administered on 10/08/16 09:48; Start 09/27/16 at 09:00 Fluticasone Propionate (Flonase) 2 spray QHS NS Last administered on 10/07/16 20:44; Start 09/27/16 at 21:00 Lisinopril (Prinivil) 20 mg DAILY PO Last administered on 10/08/16 08:50; Start 09/27/16 at 09:00 Pantoprazole Sodium (Protonix) 40 mg QHS PO Last administered on 10/07/16 20: 39; Start 09/27/16 at 21:00 Polyethylene Glycol (miraLAX) 17 gm DAILY PO Last administered on 10/08/16 08: 50; Start 09/27/16 at 09:00 Non-Formulary Medication 2.5 mg QID NEB COPD; Start 09/27/16 at 09:00; Stop at 09:00; Status DC Vitamin D (Vitamin D3) 5,000 unit DAILY PO Last administered on 10/08/16 08:49 ; Start 09/27/16 at 09:00 Multivitamins/ Calcium (Thera-M Plus) 1 tab DAILY PO Last administered on 08:50; Start 09/27/16 at 09:00 Albuterol Sulfate (Ventolin) 2.5 mg RTQID NEB Last administered on 10/08/16 15 :51; Start 09/27/16 at 08:00 Mirtazapine (Remeron) 7.5 mg QHS PO Last administered on 09/27/16 20:07; Start 09/27/16 at 21:00; Stop 09/28/16 at 18:50; Status DC Mirtazapine (Remeron) 15 mg QHS PO Last administered on 10/07/16 20:39; Start 09/28/16 at 21:00 Divalproex Sodium (Depakote Sprinkles) 125 mg BID PO Last administered on 08:28; Start 09/29/16 at 21:00; Stop 10/03/16 at 18:17; Status DC Prenat Multivit/ [place]/Iron/Folic Ac (Multivitamin ) 1 tab DAILYBFRSUP PO Last administered on 10/08/16 13:46; Start 09/30/16 at 17:00 Artificial Tears (Refresh Classic) 1 drop PRN Q1HR PRN OU DRY EYE Last administered on 10/01/16 09:42; Start 10/01/16 at 09:45 Buspirone HCl (Buspar) 15 mg TID PO Last administered on 10/08/16 13:46; Start 10/03/16 at 16:00 Nystatin (Nystop) 1 jeb BID TP Last administered on 10/08/16 09:00; Start 10/03 at 21:00 Divalproex Sodium (Depakote Sprinkles) 125 mg QID PO Last administered on 08:21; Start 10/03/16 at 21:00; Stop 10/06/16 at 11:05; Status DC Divalproex Sodium (Depakote Sprinkles) 250 mg TID PO Last administered on 13:46; Start 10/06/16 at 14:00 Quetiapine Fumarate (SEROquel) 62.5 mg [id number] PO Last administered on 17:21; Start 10/06/16 at 13:00 Sertraline HCl (Zoloft) 125 mg HS PO ; Start 10/08/16 at 21:00 Active Scripts Active Reported Advair 500-50 Diskus (Fluticasone/Salmeterol) 1 Each Disk.w.dev 1 Each IH BID LAST DOSE GIVEN: DATE: TIME: NEXT DOSE DUE: DATE: TIME: Quetiapine Fumarate 50 Mg Tablet 50 Mg PO [id number] Quetiapine Fumarate 100 Mg Tablet 100 Mg PO HS Mucinex (Guaifenesin) 600 Mg Tablet.er 1 Tab PO BID Buspirone Hcl 10 Mg Tablet 15 Mg PO TID Sertraline Hcl 100 Mg Tablet 100 Mg PO HS Pantoprazole Sodium 40 Mg Tablet.dr 40 Mg PO QHS Zyprexa Zydis (Olanzapine) 5 Mg Tab.rapdis 1.25 Mg PO PRN Q2HR PRN Max dose: 7.5mg/24hrs [place] Ultra Strength Crm (Methyl Salicylate/Menth/Camph) 57 Gm Cream..g. 1 Applic TP PRN QID PRN Milk Of Magnesia (Magnesium Hydroxide) 2,400 Mg/10 Ml Oral.susp 2,400 Mg PO PRN QHS PRN Mag-Al Plus Suspension (Mag Hydrox/Al Hydrox/Simeth) 30 Ml Oral.susp 15 Ml PO PRN AFTMEALHC PRN Lorazepam 0.5 Mg Tablet 0.25 Mg PO PRN Q2HR PRN Budesonide 0.5 Mg/2 Ml Ampul.neb 0.5 Mg NEB BID Albuterol Sulfate Neb Soln (Albuterol Sulfate) 2.5 Mg/3 Ml Vial.neb 2.5 Mg NEB PRN Q6HRS PRN Tylenol (Acetaminophen) 325 Mg Tablet 650 Mg PO PRN Q6HRS PRN Polyethylene Glycol 3350 17 Gm Powd.pack 17 Gm PO DAILY Melatonin 3 Mg Tablet 6 Mg PO QHS Lisinopril 20 Mg Tablet 20 Mg PO DAILY Fluticasone Propionate Nasal [place] (Fluticasone Propionate) 16 Gm [place].susp 2 [place] NS QHS Multivitamins (Multivitamin) 1 Each Tablet 1 Each PO DAILY Vitamin D3 (Cholecalciferol (Vitamin D3)) 5,000 Unit Tablet 5,000 Unit PO DAILY Aspirin 81 Mg Tab.chew 81 Mg PO DAILY Albuterol Sulfate Neb Soln (Albuterol Sulfate) 1.25 Mg/3 Ml Vial.neb 2.5 Mg NEB QID Diagnosis: Problems: (1) Major depressive disorder (2) Dementia with behavioral disturbance (3) Anxiety disorder (4) Dementia in Alzheimer's disease with delusions (5) Dementia in Alzheimer's disease with depression (6) Impulse control disorder CHARLINE VASQUEZ MD October 08, 2016 20:54
[2016-10-08] MEDS: SERTRALINE 50 MG TABLET. PO SCH (20:55)
[2016-10-08] MEDS: FLUTICASONE 50MCG/NASAL SPRAY 16GM BOTTLE. NS SCH (22:25)
[2016-10-09] MEDS: LORazepam 0.5 MG TABLET PO PRN ×2 (01:52→14:16)
[2016-10-09] MEDS: BUDESONIDE 0.5 MG/2 ML NEBU NEB SCH ×3 (06:15→19:15)
[2016-10-09] MEDS: ALBUTEROL SULFATE 2.5 MG/3 ML NEBU. NEB SCH ×4 (06:15→19:12)
[2016-10-09] MEDS: QUEtiapine 50 MG TABLET. PO SCH ×3 (06:19→17:30)
[2016-10-09 06:35] VITALS: BP 164/62
[2016-10-09 07:43] LABS: BASO % 1 % (0-3); EOS # 0.5 x10^3/uL (0.0-0.7); EOS % 7 % (0-3); HEMATOCRIT 29.9 % (36.0-47.0); LYMPH # 1.8 x10^3/uL (1.0-4.8); LYMPH % 25 % (24-48); MEAN CORPUSCULAR HEMOGLOBIN 28 pg (25-35); MEAN CORPUSCULAR HGB CONC 34 g/dL (31-37); MEAN CORPUSCULAR VOLUME 85 fL (79-100); MONO # 0.9 x10^3/uL (0.0-1.1); MONO % 12 % (0-9); NEUT # 3.9 x10^3uL (1.8-7.7); NEUT % 55 % (31-73); PLATELET COUNT 276 x10^3/uL (140-400); RED BLOOD COUNT 3.52 x10^6/uL (3.50-5.40); WHITE BLOOD COUNT 7.1 x10^3/uL (4.0-11.0)
[2016-10-09 07:49] LABS: ALK PHOS 69 U/L (46-116); GFR 119.6; TOTAL BILIRUBIN 0.3 mg/dL (0.2-1.0); TOTAL PROTEIN 5.9 g/dL (6.4-8.2)
[2016-10-09] MEDS: DIVALPROEX 125 MG CAP.SPRINK PO SCH ×3 (08:56→21:19)
[2016-10-09] MEDS: MULTIVITAMIN with MINERAL TABLET. PO SCH (08:57)
[2016-10-09] MEDS: LISINOPRIL 20 MG TABLET PO SCH (08:57)
[2016-10-09] MEDS: busPIRone 15 MG TABLET. PO SCH ×3 (08:58→21:22)
[2016-10-09] MEDS: ASPIRIN 81 MG TAB.CHEW PO SCH (08:58)
[2016-10-09] MEDS: CHOLECALCIFEROL (VITAMIN D3) 1,000 UNIT TABLET PO SCH (08:58)
[2016-10-09] MEDS: NYSTATIN TOPICAL POWDER 15GM BOTTLE. TP SCH ×2 (08:59→21:22)
[2016-10-09] MEDS: POLYETHYLENE GLYCOL 3350 17 GM PACKET. PO SCH (08:59)
[2016-10-09 09:46] LABS: ALBUMIN 3.2 g/dL (3.4-5.0); ALBUMIN/GLOBULIN RATIO 1.2 (1.0-1.7); ALT (SGPT) 24 U/L (14-59); ANION GAP 3 (6-14); AST (SGOT) 19 U/L (15-37); BLOOD UREA NITROGEN 8 mg/dL (7-20); BUN/CREATININE RATIO 16 (6-20); CALCIUM 8.4 mg/dL (8.5-10.1); CARBON DIOXIDE 37 mmol/L (21-32); CHLORIDE 87 mmol/L (98-107); CREATININE 0.5 mg/dL (0.6-1.0); GLUCOSE 93 mg/dL (70-99); POTASSIUM 4.7 mmol/L (3.5-5.1); SODIUM 127 mmol/L (136-145); VAL ACID 59 mcg/mL (50-100)
[2016-10-09] MEDS: ACETAMINOPHEN 325 MG TABLET PO PRN (14:18)
[2016-10-09 16:22] VITALS: BP 126/57
[2016-10-09] MEDS: PRENATAL MULTIVITAMIN TABLET. PO SCH (17:32)
[2016-10-09] MEDS ORDERED: traZODone 100 MG TABLET. PO PRN (18:30)
--- NOTE | 2016-10-09 20:13 | PDOC ---
Exam Maciel Demential Exam: Maciel Note: Please also refer to the separate dictated note~for this date of service dictated separately.~Patient seen individually. Discussed the patient with Nursing staff reviewed the chart.~Reviewed interim history and current functioning. Reviewed vital signs,~Labs/ Radiology~and current medications noted below. Continue current treatment with the changes noted in the dictated addendum note Assessment: Vital Signs: Vital Signs Date Time Temp Pulse Resp B/P (MAP) Pulse Ox O2 Delivery O2 Flow Rate FiO2 10/09/16 16:22 98.3 87 18 126/57 (80) 99 2.0 10/09/16 15:49 Nasal Cannula I&O Intake and Output 10/09/16 07:00 Intake Total 1680 ml Balance 1680 ml Intake Oral 1680 ml # Voids 1 # Bowel Movements 1 Labs: Laboratory Tests Test 10/09/16 07:09 White Blood Count 7.1 x10^3/uL (4.0-11.0) Red Blood Count 3.52 x10^6/uL (3.50-5.40) Hemoglobin 10.0 g/dL (12.0-15.5) L Hematocrit 29.9 % (36.0-47.0) L Mean Corpuscular Volume 85 fL (79-100) Mean Corpuscular Hemoglobin 28 pg (25-35) Mean Corpuscular Hemoglobin Concent 34 g/dL (31-37) Red Cell Distribution Width 14.0 % (11.5-14.5) Platelet Count 276 x10^3/uL (140-400) Neutrophils (%) (Auto) 55 % (31-73) Lymphocytes (%) (Auto) 25 % (24-48) Monocytes (%) (Auto) 12 % (0-9) H Eosinophils (%) (Auto) 7 % (0-3) H Basophils (%) (Auto) 1 % (0-3) Neutrophils # (Auto) 3.9 x10^3uL (1.8-7.7) Lymphocytes # (Auto) 1.8 x10^3/uL (1.0-4.8) Monocytes # (Auto) 0.9 x10^3/uL (0.0-1.1) Eosinophils # (Auto) 0.5 x10^3/uL (0.0-0.7) Basophils # (Auto) 0.0 x10^3/uL (0.0-0.2) Sodium Level 127 mmol/L (136-145) L Potassium Level 4.7 mmol/L (3.5-5.1) Chloride Level 87 mmol/L (98-107) L Carbon Dioxide Level 37 mmol/L (21-32) H Anion Gap 3 (6-14) L Blood Urea Nitrogen 8 mg/dL (7-20) Creatinine 0.5 mg/dL (0.6-1.0) L Estimated GFR (Cockcroft-Gault) 119.6 BUN/Creatinine Ratio 16 (6-20) Glucose Level 93 mg/dL (70-99) Calcium Level 8.4 mg/dL (8.5-10.1) L Total Bilirubin 0.3 mg/dL (0.2-1.0) Aspartate Amino Transferase (AST) 19 U/L (15-37) Alanine Aminotransferase (ALT) 24 U/L (14-59) Alkaline Phosphatase 69 U/L (46-116) Total Protein 5.9 g/dL (6.4-8.2) L Albumin 3.2 g/dL (3.4-5.0) L Albumin/Globulin Ratio 1.2 (1.0-1.7) Valproic Acid Level 59 mcg/mL (50-100) Valproic Acid Last Dose Date 10/08/2016 Valproic Acid Last Dose Time 2100 Current Medications: Meds: Current Medications Acetaminophen (Tylenol) 650 mg PRN Q6HRS PRN PO PAIN / TEMP; Start 09/26/16 at 21:15; Status Cancel Guaifenesin (Mucinex Er) 600 mg BID PO Last administered on 10/09/16 08:56; Start 09/27/16 at 09:00 Acetaminophen (Tylenol) 650 mg PRN Q6HRS PRN PO MILD PAIN/TEMP Last administered on 10/09/16 14:18; Start 09/26/16 at 23:30 Buspirone HCl (Buspar) 15 mg TID PO Last administered on 10/03/16 13:23; Start 09/27/16 at 09:00; Stop 10/03/16 at 15:45; Status DC Lorazepam (Ativan) 0.25 mg PRN Q2HR PRN PO ANXIETY/AGITATION Last administered on 10/09/16 14:16; Start 09/26/16 at 23:30 Melatonin 6 mg QHS PO Last administered on 10/08/16 20:52; Start 09/27/16 at 21 :00 Olanzapine (Zyprexa Zydis) 1.25 mg PRN Q2HR PRN PO PSYCHOSIS Last administered on 10/03/16 16:12; Start 09/26/16 at 23:30 Quetiapine Fumarate (SEROquel) 100 mg HS PO Last administered on 10/08/16 20: 53; Start 09/27/16 at 21:00 Sertraline HCl (Zoloft) 100 mg HS PO Last administered on 10/07/16 20:39; Start 09/27/16 at 21:00; Stop 10/08/16 at 19:00; Status DC Al Hydroxide/Mg Hydroxide (Mylanta Plus Xs) 15 ml PRN AFTMEALHC PRN PO DYSPEPSIA Last administered on 10/08/16 12:33; Start 09/26/16 at 23:30 Magnesium Hydroxide (Milk Of Magnesia) 2,400 mg PRN QHS PRN PO CONSTIPATION; Start 09/26/16 at 23:45 Multi-Ingredient Ointment (Analgesic [place]) 1 jeb PRN QID PRN TP MUSCLE PAIN; Start 09/26/16 at 23:45; Stop 09/26/16 at 23:45; Status DC Quetiapine Fumarate (SEROquel) 50 mg [id number] PO Last administered on 10/06/16 05:43; Start 09/27/16 at 07:00; Stop 10/06/16 at 11:05; Status DC Multi-Ingredient Ointment (Analgesic [place]) 1 jeb PRN QID PRN TP MUSCLE PAIN; Start 09/26/16 at 23:45 Acetaminophen (Tylenol) 650 mg PRN Q6HRS PRN PO PAIN / TEMP; Start 09/26/16 at 23:30; Status UNV Al Hydroxide/Mg Hydroxide (Mylanta Plus Xs) 15 ml PRN AFTMEALHC PRN PO DYSPEPSIA; Start 09/26/16 at 23:30; Status UNV Magnesium Hydroxide (Milk Of Magnesia) 2,400 mg PRN QHS PRN PO CONSTIPATION; Start 09/26/16 at 23:30; Status UNV Albuterol Sulfate (Ventolin) 2.5 mg PRN Q6HRS PRN NEB COPD Last administered on 09/27/16 05:24; Start 09/27/16 at 00:00 Aspirin (Children'S Aspirin) 81 mg DAILY PO Last administered on 10/09/16 08: 58; Start 09/27/16 at 09:00 Budesonide (Pulmicort) 0.5 mg BID NEB Last administered on 10/09/16 19:15; Start 09/27/16 at 09:00 Fluticasone Propionate (Flonase) 2 spray QHS NS Last administered on 10/08/16 22:25; Start 09/27/16 at 21:00 Lisinopril (Prinivil) 20 mg DAILY PO Last administered on 10/09/16 08:57; Start 09/27/16 at 09:00 Pantoprazole Sodium (Protonix) 40 mg QHS PO Last administered on 10/08/16 20: 53; Start 09/27/16 at 21:00 Polyethylene Glycol (miraLAX) 17 gm DAILY PO Last administered on 10/09/16 08: 59; Start 09/27/16 at 09:00 Non-Formulary Medication 2.5 mg QID NEB COPD; Start 09/27/16 at 09:00; Stop at 09:00; Status DC Vitamin D (Vitamin D3) 5,000 unit DAILY PO Last administered on 10/09/16 08:58 ; Start 09/27/16 at 09:00 Multivitamins/ Calcium (Thera-M Plus) 1 tab DAILY PO Last administered on 08:57; Start 09/27/16 at 09:00 Albuterol Sulfate (Ventolin) 2.5 mg RTQID NEB Last administered on 10/09/16 19 :12; Start 09/27/16 at 08:00 Mirtazapine (Remeron) 7.5 mg QHS PO Last administered on 09/27/16 20:07; Start 09/27/16 at 21:00; Stop 09/28/16 at 18:50; Status DC Mirtazapine (Remeron) 15 mg QHS PO Last administered on 10/08/16 20:53; Start 09/28/16 at 21:00; Stop 10/09/16 at 18:24; Status DC Divalproex Sodium (Depakote Sprinkles) 125 mg BID PO Last administered on 08:28; Start 09/29/16 at 21:00; Stop 10/03/16 at 18:17; Status DC Prenat Multivit/ [place] Reg[place]/Iron/Folic Ac (Multivitamin ) 1 tab [id number] PO Last administered on 10/09/16 17:32; Start 09/30/16 at 17:00 Artificial Tears (Refresh Classic) 1 drop PRN Q1HR PRN OU DRY EYE Last administered on 10/01/16 09:42; Start 10/01/16 at 09:45 Buspirone HCl (Buspar) 15 mg TID PO Last administered on 10/09/16 13:16; Start 10/03/16 at 16:00 Nystatin (Nystop) 1 jeb BID TP Last administered on 10/09/16 08:59; Start 10/03 at 21:00 Divalproex Sodium (Depakote Sprinkles) 125 mg QID PO Last administered on 08:21; Start 10/03/16 at 21:00; Stop 10/06/16 at 11:05; Status DC Divalproex Sodium (Depakote Sprinkles) 250 mg TID PO Last administered on 13:16; Start 10/06/16 at 14:00 Quetiapine Fumarate (SEROquel) 62.5 mg [id number] PO Last administered on 17:30; Start 10/06/16 at 13:00 Sertraline HCl (Zoloft) 125 mg HS PO Last administered on 10/08/16 20:55; Start 10/08/16 at 21:00 Trazodone HCl (Desyrel) 100 mg PRN QHS PRN PO INSOMNIA; Start 10/09/16 at 18:30 Active Scripts Active Reported Advair 500-50 Diskus (Fluticasone/Salmeterol) 1 Each Disk.w.dev 1 Each IH BID LAST DOSE GIVEN: DATE: TIME: NEXT DOSE DUE: DATE: TIME: Quetiapine Fumarate 50 Mg Tablet 50 Mg PO [id number] Quetiapine Fumarate 100 Mg Tablet 100 Mg PO HS Mucinex (Guaifenesin) 600 Mg Tablet.er 1 Tab PO BID Buspirone Hcl 10 Mg Tablet 15 Mg PO TID Sertraline Hcl 100 Mg Tablet 100 Mg PO HS Pantoprazole Sodium 40 Mg Tablet.dr 40 Mg PO QHS Zyprexa Zydis (Olanzapine) 5 Mg Tab.rapdis 1.25 Mg PO PRN Q2HR PRN Max dose: 7.5mg/24hrs [place] Ultra Strength Crm (Methyl Salicylate/Menth/Camph) 57 Gm Cream..g. 1 Applic TP PRN QID PRN Milk Of Magnesia (Magnesium Hydroxide) 2,400 Mg/10 Ml Oral.susp 2,400 Mg PO PRN QHS PRN Mag-Al Plus Suspension (Mag Hydrox/Al Hydrox/Simeth) 30 Ml Oral.susp 15 Ml PO PRN AFTMEALHC PRN Lorazepam 0.5 Mg Tablet 0.25 Mg PO PRN Q2HR PRN Budesonide 0.5 Mg/2 Ml Ampul.neb 0.5 Mg NEB BID Albuterol Sulfate Neb Soln (Albuterol Sulfate) 2.5 Mg/3 Ml Vial.neb 2.5 Mg NEB PRN Q6HRS PRN Tylenol (Acetaminophen) 325 Mg Tablet 650 Mg PO PRN Q6HRS PRN Polyethylene Glycol 3350 17 Gm Powd.pack 17 Gm PO DAILY Melatonin 3 Mg Tablet 6 Mg PO QHS Lisinopril 20 Mg Tablet 20 Mg PO DAILY Fluticasone Propionate Nasal [place] (Fluticasone Propionate) 16 Gm [place].susp 2 [place] NS QHS Multivitamins (Multivitamin) 1 Each Tablet 1 Each PO DAILY Vitamin D3 (Cholecalciferol (Vitamin D3)) 5,000 Unit Tablet 5,000 Unit PO DAILY Aspirin 81 Mg Tab.chew 81 Mg PO DAILY Albuterol Sulfate Neb Soln (Albuterol Sulfate) 1.25 Mg/3 Ml Vial.neb 2.5 Mg NEB QID CHARLINE VASQUEZ MD October 09, 2016 20:13
[2016-10-09] MEDS: FLUTICASONE 50MCG/NASAL SPRAY 16GM BOTTLE. NS SCH (21:19)
[2016-10-09] MEDS: QUEtiapine 100 MG TABLET. PO SCH (21:21)
[2016-10-09] MEDS: SERTRALINE 50 MG TABLET. PO SCH (21:21)
[2016-10-09] MEDS: PANTOPRAZOLE 40 MG TABLET. PO SCH (21:21)
[2016-10-09] MEDS: MELATONIN 3 MG TABLET PO SCH (21:22)
--- NOTE | 2016-10-10 00:10 | PN ---
DATE: 10/07/2016 PSYCHIATRIC PROGRESS NOTE This is a late entry for 10/07/2016, covers elements not covered in my initial note. SUBJECTIVE: The patient remains quite anxious, attention seeking. Her oxygen tank was empty when nurses checked in the morning. This could have been increasing her anxiety, but she was anxious even after this. REVIEW OF SYSTEMS: Ambulation impaired, difficulty with her breathing on oxygen supplements. No CV, , GI system symptoms on review. MENTAL STATUS EXAM: Reasonably oriented. Speech coherent, rapid at times. Abstraction fair, computation impaired, language function intact. Mood and affect quite anxious, labile at times. IMPRESSION: Unchanged from initial note. PLAN: Continue current psychotropics. Check labs level on 10/09/2016 and then we may adjust the Depakote since the last level was 39. MAN Ino VASQUEZ MD DR: [email or web address]/jacqueline JOB#: [id number] / [id number]
[2016-10-10] MEDS: ALBUTEROL SULFATE 2.5 MG/3 ML NEBU. NEB SCH ×4 (05:07→21:08)
[2016-10-10] MEDS: QUEtiapine 50 MG TABLET. PO SCH ×3 (06:00→17:10)
[2016-10-10 06:38] VITALS: BP 156/74
[2016-10-10] MEDS: CHOLECALCIFEROL (VITAMIN D3) 1,000 UNIT TABLET PO SCH (08:18)
[2016-10-10] MEDS: MULTIVITAMIN with MINERAL TABLET. PO SCH (08:19)
[2016-10-10] MEDS: LISINOPRIL 20 MG TABLET PO SCH (08:19)
[2016-10-10] MEDS: ASPIRIN 81 MG TAB.CHEW PO SCH (08:19)
[2016-10-10] MEDS: busPIRone 15 MG TABLET. PO SCH ×3 (08:19→19:55)
[2016-10-10] MEDS: DIVALPROEX 125 MG CAP.SPRINK PO SCH ×3 (08:19→19:55)
[2016-10-10] MEDS: POLYETHYLENE GLYCOL 3350 17 GM PACKET. PO SCH (08:19)
[2016-10-10] MEDS: NYSTATIN TOPICAL POWDER 15GM BOTTLE. TP SCH ×2 (08:21→19:56)
[2016-10-10 16:17] VITALS: BP 140/63
[2016-10-10] MEDS: LORazepam 0.5 MG TABLET PO PRN (16:44)
[2016-10-10] MEDS: PRENATAL MULTIVITAMIN TABLET. PO SCH (17:10)
[2016-10-10] MEDS: MELATONIN 3 MG TABLET PO SCH (19:55)
[2016-10-10] MEDS: FLUTICASONE 50MCG/NASAL SPRAY 16GM BOTTLE. NS SCH (19:55)
[2016-10-10] MEDS: QUEtiapine 100 MG TABLET. PO SCH (19:56)
[2016-10-10] MEDS: SERTRALINE 50 MG TABLET. PO SCH (19:56)
[2016-10-10] MEDS: PANTOPRAZOLE 40 MG TABLET. PO SCH (19:56)
[2016-10-10] MEDS: BUDESONIDE 0.5 MG/2 ML NEBU NEB SCH (21:08)
--- NOTE | 2016-10-10 21:09 | PDOC ---
Exam Maciel Demential Exam: Maciel Note: Please also refer to the separate dictated note~for this date of service dictated separately.~Patient seen individually. Discussed the patient with Nursing staff reviewed the chart.~Reviewed interim history and current functioning. Reviewed vital signs,~Labs/ Radiology~and current medications noted below. Continue current treatment with the changes noted in the dictated addendum note Assessment: Vital Signs: Vital Signs Date Time Temp Pulse Resp B/P (MAP) Pulse Ox O2 Delivery O2 Flow Rate FiO2 10/10/16 16:45 97 Nasal Cannula 2.0 10/10/16 16:17 97.6 90 23 140/63 (88) I&O Intake and Output 10/10/16 07:00 Intake Total 720 ml Balance 720 ml Intake Oral 720 ml Current Medications: Meds: Current Medications Acetaminophen (Tylenol) 650 mg PRN Q6HRS PRN PO PAIN / TEMP; Start 09/26/16 at 21:15; Status Cancel Guaifenesin (Mucinex Er) 600 mg BID PO Last administered on 10/10/16 19:55; Start 09/27/16 at 09:00 Acetaminophen (Tylenol) 650 mg PRN Q6HRS PRN PO MILD PAIN/TEMP Last administered on 10/09/16 14:18; Start 09/26/16 at 23:30 Buspirone HCl (Buspar) 15 mg TID PO Last administered on 10/03/16 13:23; Start 09/27/16 at 09:00; Stop 10/03/16 at 15:45; Status DC Lorazepam (Ativan) 0.25 mg PRN Q2HR PRN PO ANXIETY/AGITATION Last administered on 10/10/16 16:44; Start 09/26/16 at 23:30 Melatonin 6 mg QHS PO Last administered on 10/10/16 19:55; Start 09/27/16 at 21 :00 Olanzapine (Zyprexa Zydis) 1.25 mg PRN Q2HR PRN PO PSYCHOSIS Last administered on 10/03/16 16:12; Start 09/26/16 at 23:30 Quetiapine Fumarate (SEROquel) 100 mg HS PO Last administered on 10/10/16 19: 56; Start 09/27/16 at 21:00 Sertraline HCl (Zoloft) 100 mg HS PO Last administered on 10/07/16 20:39; Start 09/27/16 at 21:00; Stop 10/08/16 at 19:00; Status DC Al Hydroxide/Mg Hydroxide (Mylanta Plus Xs) 15 ml PRN AFTMEALHC PRN PO DYSPEPSIA Last administered on 10/08/16 12:33; Start 09/26/16 at 23:30 Magnesium Hydroxide (Milk Of Magnesia) 2,400 mg PRN QHS PRN PO CONSTIPATION; Start 09/26/16 at 23:45 Multi-Ingredient Ointment (Analgesic [place]) 1 jeb PRN QID PRN TP MUSCLE PAIN; Start 09/26/16 at 23:45; Stop 09/26/16 at 23:45; Status DC Quetiapine Fumarate (SEROquel) 50 mg [id number] PO Last administered on 10/06/16 05:43; Start 09/27/16 at 07:00; Stop 10/06/16 at 11:05; Status DC Multi-Ingredient Ointment (Analgesic [place]) 1 jbe PRN QID PRN TP MUSCLE PAIN; Start 09/26/16 at 23:45 Acetaminophen (Tylenol) 650 mg PRN Q6HRS PRN PO PAIN / TEMP; Start 09/26/16 at 23:30; Status UNV Al Hydroxide/Mg Hydroxide (Mylanta Plus Xs) 15 ml PRN AFTMEALHC PRN PO DYSPEPSIA; Start 09/26/16 at 23:30; Status UNV Magnesium Hydroxide (Milk Of Magnesia) 2,400 mg PRN QHS PRN PO CONSTIPATION; Start 09/26/16 at 23:30; Status UNV Albuterol Sulfate (Ventolin) 2.5 mg PRN Q6HRS PRN NEB COPD Last administered on 09/27/16 05:24; Start 09/27/16 at 00:00 Aspirin (Children'S Aspirin) 81 mg DAILY PO Last administered on 10/10/16 08: 19; Start 09/27/16 at 09:00 Budesonide (Pulmicort) 0.5 mg BID NEB Last administered on 10/10/16 21:08; Start 09/27/16 at 09:00 Fluticasone Propionate (Flonase) 2 spray QHS NS Last administered on 10/10/16 19:55; Start 09/27/16 at 21:00 Lisinopril (Prinivil) 20 mg DAILY PO Last administered on 10/10/16 08:19; Start 09/27/16 at 09:00 Pantoprazole Sodium (Protonix) 40 mg QHS PO Last administered on 10/10/16 19: 56; Start 09/27/16 at 21:00 Polyethylene Glycol (miraLAX) 17 gm DAILY PO Last administered on 10/10/16 08: 19; Start 09/27/16 at 09:00 Non-Formulary Medication 2.5 mg QID NEB COPD; Start 09/27/16 at 09:00; Stop at 09:00; Status DC Vitamin D (Vitamin D3) 5,000 unit DAILY PO Last administered on 10/10/16 08:18 ; Start 09/27/16 at 09:00 Multivitamins/ Calcium (Thera-M Plus) 1 tab DAILY PO Last administered on 08:19; Start 09/27/16 at 09:00 Albuterol Sulfate (Ventolin) 2.5 mg RTQID NEB Last administered on 10/10/16 21 :08; Start 09/27/16 at 08:00 Mirtazapine (Remeron) 7.5 mg QHS PO Last administered on 09/27/16 20:07; Start 09/27/16 at 21:00; Stop 09/28/16 at 18:50; Status DC Mirtazapine (Remeron) 15 mg QHS PO Last administered on 10/08/16 20:53; Start 09/28/16 at 21:00; Stop 10/09/16 at 18:24; Status DC Divalproex Sodium (Depakote Sprinkles) 125 mg BID PO Last administered on 08:28; Start 09/29/16 at 21:00; Stop 10/03/16 at 18:17; Status DC Prenat Multivit/ [place]/Iron/Folic Ac (Multivitamin ) 1 tab DAILYBFRSUP PO Last administered on 10/10/16 17:10; Start 09/30/16 at 17:00 Artificial Tears (Refresh Classic) 1 drop PRN Q1HR PRN OU DRY EYE Last administered on 10/01/16 09:42; Start 10/01/16 at 09:45 Buspirone HCl (Buspar) 15 mg TID PO Last administered on 10/10/16 19:55; Start 10/03/16 at 16:00 Nystatin (Nystop) 1 jeb BID TP Last administered on 10/10/16 19:56; Start 10/03 at 21:00 Divalproex Sodium (Depakote Sprinkles) 125 mg QID PO Last administered on 08:21; Start 10/03/16 at 21:00; Stop 10/06/16 at 11:05; Status DC Divalproex Sodium (Depakote Sprinkles) 250 mg TID PO Last administered on 19:55; Start 10/06/16 at 14:00 Quetiapine Fumarate (SEROquel) 62.5 mg [id number] PO Last administered on 17:10; Start 10/06/16 at 13:00 Sertraline HCl (Zoloft) 125 mg HS PO Last administered on 10/10/16 19:56; Start 10/08/16 at 21:00 Trazodone HCl (Desyrel) 100 mg PRN QHS PRN PO INSOMNIA; Start 10/09/16 at 18:30 Active Scripts Active Reported Advair 500-50 Diskus (Fluticasone/Salmeterol) 1 Each Disk.w.dev 1 Each IH BID LAST DOSE GIVEN: DATE: TIME: NEXT DOSE DUE: DATE: TIME: Quetiapine Fumarate 50 Mg Tablet 50 Mg PO [id number] Quetiapine Fumarate 100 Mg Tablet 100 Mg PO HS Mucinex (Guaifenesin) 600 Mg Tablet.er 1 Tab PO BID Buspirone Hcl 10 Mg Tablet 15 Mg PO TID Sertraline Hcl 100 Mg Tablet 100 Mg PO HS Pantoprazole Sodium 40 Mg Tablet.dr 40 Mg PO QHS Zyprexa Zydis (Olanzapine) 5 Mg Tab.rapdis 1.25 Mg PO PRN Q2HR PRN Max dose: 7.5mg/24hrs [place] Ultra Strength Crm (Methyl Salicylate/Menth/Camph) 57 Gm Cream..g. 1 Applic TP PRN QID PRN Milk Of Magnesia (Magnesium Hydroxide) 2,400 Mg/10 Ml Oral.susp 2,400 Mg PO PRN QHS PRN Mag-Al Plus Suspension (Mag Hydrox/Al Hydrox/Simeth) 30 Ml Oral.susp 15 Ml PO PRN AFTMEALHC PRN Lorazepam 0.5 Mg Tablet 0.25 Mg PO PRN Q2HR PRN Budesonide 0.5 Mg/2 Ml Ampul.neb 0.5 Mg NEB BID Albuterol Sulfate Neb Soln (Albuterol Sulfate) 2.5 Mg/3 Ml Vial.neb 2.5 Mg NEB PRN Q6HRS PRN Tylenol (Acetaminophen) 325 Mg Tablet 650 Mg PO PRN Q6HRS PRN Polyethylene Glycol 3350 17 Gm Powd.pack 17 Gm PO DAILY Melatonin 3 Mg Tablet 6 Mg PO QHS Lisinopril 20 Mg Tablet 20 Mg PO DAILY Fluticasone Propionate Nasal [place] (Fluticasone Propionate) 16 Gm [place].susp 2 [place] NS QHS Multivitamins (Multivitamin) 1 Each Tablet 1 Each PO DAILY Vitamin D3 (Cholecalciferol (Vitamin D3)) 5,000 Unit Tablet 5,000 Unit PO DAILY Aspirin 81 Mg Tab.chew 81 Mg PO DAILY Albuterol Sulfate Neb Soln (Albuterol Sulfate) 1.25 Mg/3 Ml Vial.neb 2.5 Mg NEB QID CHRALINE [id number] MD October 10, 2016 21:09
--- NOTE | 2016-10-11 01:42 | PN ---
DATE: 10/09/2016 This is a late entry for 10/09/2016 covers elements not covered in my initial note. SUBJECTIVE: Overall, the patient has done better, less anxious. Sodium is low once again. Dr. Todd wonders that Zoloft and Remeron could be contributing. REVIEW OF SYSTEMS: Shortness of breath on O2 supplement. Impaired ambulation, in a wheelchair. No CV, , GI system symptoms on review. MENTAL STATUS EXAM: Reasonably oriented. Speech is coherent, less pressured. Abstraction fair, computation impaired, language function intact. Attention span short. IMPRESSION: Unchanged from initial note. PLAN: We will check with the pharmacy whether there is an SSRI other than Zoloft that has less propensity for hyponatremia, but for now we will change the Remeron to trazodone 100 mg at bedtime p.r.n. May repeat x 1 since Remeron could be contributing to the hyponatremia. Follow labs level. Adjust further as clinically indicated. MAN Ino VASQUEZ MD DR: KHUSHBOO/jacqueline JOB#: [id number] / [id number]
--- NOTE | 2016-10-11 01:46 | PN ---
DATE: 10/08/2016 PSYCHIATRIC PROGRESS NOTE This is late entry of 10/08/2016, covers elements not covered in my initial note. SUBJECTIVE: Per nursing report, the patient has been anxious, irritable, attention seeking, patient minimizes all of this. She was on the telephone with her daughter, was quite agitated during the call. REVIEW OF SYSTEMS: Shortness of breath on O2 supplements, impaired ambulation, in a wheelchair. No CV, , eye, ENT system symptoms on review. MENTAL STATUS EXAMINATION: Reasonably oriented. Speech is coherent, abstraction fair, computation impaired, language function intact. Mood and affect still somewhat anxious, labile. LABORATORY DATA: Reviewed. IMPRESSION: Unchanged from initial note. PLAN: Increase Zoloft to 125 mg a day, continue melatonin 6 mg at bedtime, BuSpar 15 t.i.d., Seroquel 100 at bedtime and 62.5 t.i.d., Ativan p.r.n., Remeron 15 at bedtime, Depakote 250 t.i.d., adjust further as clinically indicated. Check valproic acid level morning of 10/09/2016. MAN Ino VASQUEZ MD DR: KHUSHBOO/jacqueline JOB#: [id number] / [id number]
[2016-10-11] MEDS: ALBUTEROL SULFATE 2.5 MG/3 ML NEBU. NEB SCH ×4 (05:41→21:02)
[2016-10-11] MEDS: QUEtiapine 50 MG TABLET. PO SCH ×3 (05:44→16:22)
[2016-10-11 06:06] VITALS: BP 152/62
[2016-10-11 08:16] LABS: ALBUMIN 3.2 g/dL (3.4-5.0); ALBUMIN/GLOBULIN RATIO 1.2 (1.0-1.7); CALCIUM 8.7 mg/dL (8.5-10.1); CREATININE 0.6 mg/dL (0.6-1.0); GFR 96.9; POTASSIUM 4.9 mmol/L (3.5-5.1); TOTAL BILIRUBIN 0.3 mg/dL (0.2-1.0); TOTAL PROTEIN 5.9 g/dL (6.4-8.2)
[2016-10-11] MEDS: LISINOPRIL 20 MG TABLET PO SCH (08:22)
[2016-10-11] MEDS: DIVALPROEX 125 MG CAP.SPRINK PO SCH ×3 (08:23→19:11)
[2016-10-11] MEDS: CHOLECALCIFEROL (VITAMIN D3) 1,000 UNIT TABLET PO SCH (08:23)
[2016-10-11] MEDS: busPIRone 15 MG TABLET. PO SCH ×3 (08:23→19:11)
[2016-10-11] MEDS: MULTIVITAMIN with MINERAL TABLET. PO SCH (08:23)
[2016-10-11] MEDS: ASPIRIN 81 MG TAB.CHEW PO SCH (08:23)
[2016-10-11] MEDS: POLYETHYLENE GLYCOL 3350 17 GM PACKET. PO SCH (08:24)
[2016-10-11] MEDS: NYSTATIN TOPICAL POWDER 15GM BOTTLE. TP SCH ×2 (08:27→19:12)
[2016-10-11] MEDS: BUDESONIDE 0.5 MG/2 ML NEBU NEB SCH ×2 (10:03→21:02)
[2016-10-11 16:00] VITALS: BP 125/57
[2016-10-11] MEDS: PRENATAL MULTIVITAMIN TABLET. PO SCH (16:22)
[2016-10-11] MEDS: ACETAMINOPHEN 325 MG TABLET PO PRN (17:57)
[2016-10-11] MEDS: MELATONIN 3 MG TABLET PO SCH (19:11)
[2016-10-11] MEDS: FLUTICASONE 50MCG/NASAL SPRAY 16GM BOTTLE. NS SCH (19:11)
[2016-10-11] MEDS: PANTOPRAZOLE 40 MG TABLET. PO SCH (19:12)
[2016-10-11] MEDS: QUEtiapine 100 MG TABLET. PO SCH (19:12)
--- NOTE | 2016-10-11 21:11 | PDOC ---
Exam Maciel Demential Exam: Maciel Note: Please also refer to the separate dictated note~for this date of service dictated separately.~Patient seen individually. Discussed the patient with Nursing staff reviewed the chart.~Reviewed interim history and current functioning. Reviewed vital signs,~Labs/ Radiology~and current medications noted below. Continue current treatment with the changes noted in the dictated addendum note Assessment: Vital Signs: Vital Signs Date Time Temp Pulse Resp B/P (MAP) Pulse Ox O2 Delivery O2 Flow Rate FiO2 10/11/16 21:08 92 Nasal Cannula 2.0 10/11/16 16:00 97.2 95 20 125/57 (79) I&O Intake and Output 10/11/16 07:00 Intake Total 960 ml Balance 960 ml Intake Oral 960 ml Labs: Laboratory Tests Test 10/11/16 07:33 Sodium Level 128 mmol/L (136-145) L Potassium Level 4.9 mmol/L (3.5-5.1) Chloride Level 89 mmol/L (98-107) L Carbon Dioxide Level 37 mmol/L (21-32) H Anion Gap 2 (6-14) L Blood Urea Nitrogen 10 mg/dL (7-20) Creatinine 0.6 mg/dL (0.6-1.0) Estimated GFR (Cockcroft-Gault) 96.9 BUN/Creatinine Ratio 17 (6-20) Glucose Level 100 mg/dL (70-99) H Calcium Level 8.7 mg/dL (8.5-10.1) Total Bilirubin 0.3 mg/dL (0.2-1.0) Aspartate Amino Transferase (AST) 27 U/L (15-37) Alanine Aminotransferase (ALT) 28 U/L (14-59) Alkaline Phosphatase 68 U/L (46-116) Total Protein 5.9 g/dL (6.4-8.2) L Albumin 3.2 g/dL (3.4-5.0) L Albumin/Globulin Ratio 1.2 (1.0-1.7) Current Medications: Meds: Current Medications Acetaminophen (Tylenol) 650 mg PRN Q6HRS PRN PO PAIN / TEMP; Start 09/26/16 at 21:15; Status Cancel Guaifenesin (Mucinex Er) 600 mg BID PO Last administered on 10/11/16t 19:12; Start 09/27/16 at 09:00 Acetaminophen (Tylenol) 650 mg PRN Q6HRS PRN PO MILD PAIN/TEMP Last administered on 10/11/16 17:57; Start 09/26/16 at 23:30 Buspirone HCl (Buspar) 15 mg TID PO Last administered on 10/03/16 13:23; Start 09/27/16 at 09:00; Stop 10/03/16 at 15:45; Status DC Lorazepam (Ativan) 0.25 mg PRN Q2HR PRN PO ANXIETY/AGITATION Last administered on 10/10/16 16:44; Start 09/26/16 at 23:30 Melatonin 6 mg QHS PO Last administered on 10/11/16 19:11; Start 09/27/16 at 21 :00 Olanzapine (Zyprexa Zydis) 1.25 mg PRN Q2HR PRN PO PSYCHOSIS Last administered on 10/03/16 16:12; Start 09/26/16 at 23:30 Quetiapine Fumarate (SEROquel) 100 mg HS PO Last administered on 10/11/16 19: 12; Start 09/27/16 at 21:00 Sertraline HCl (Zoloft) 100 mg HS PO Last administered on 10/07/16 20:39; Start 09/27/16 at 21:00; Stop 10/08/16 at 19:00; Status DC Al Hydroxide/Mg Hydroxide (Mylanta Plus Xs) 15 ml PRN AFTMEALHC PRN PO DYSPEPSIA Last administered on 10/08/16 12:33; Start 09/26/16 at 23:30 Magnesium Hydroxide (Milk Of Magnesia) 2,400 mg PRN QHS PRN PO CONSTIPATION; Start 09/26/16 at 23:45 Multi-Ingredient Ointment (Analgesic [place]) 1 jeb PRN QID PRN TP MUSCLE PAIN; Start 09/26/16 at 23:45; Stop 09/26/16 at 23:45; Status DC Quetiapine Fumarate (SEROquel) 50 mg [id number] PO Last administered on 10/06/16 05:43; Start 09/27/16 at 07:00; Stop 10/06/16 at 11:05; Status DC Multi-Ingredient Ointment (Analgesic [place]) 1 jeb PRN QID PRN TP MUSCLE PAIN; Start 09/26/16 at 23:45 Acetaminophen (Tylenol) 650 mg PRN Q6HRS PRN PO PAIN / TEMP; Start 09/26/16 at 23:30; Status UNV Al Hydroxide/Mg Hydroxide (Mylanta Plus Xs) 15 ml PRN AFTMEALHC PRN PO DYSPEPSIA; Start 09/26/16 at 23:30; Status UNV Magnesium Hydroxide (Milk Of Magnesia) 2,400 mg PRN QHS PRN PO CONSTIPATION; Start 09/26/16 at 23:30; Status UNV Albuterol Sulfate (Ventolin) 2.5 mg PRN Q6HRS PRN NEB COPD Last administered on 09/27/16 05:24; Start 09/27/16 at 00:00 Aspirin (Children'S Aspirin) 81 mg DAILY PO Last administered on 10/11/16 08: 23; Start 09/27/16 at 09:00 Budesonide (Pulmicort) 0.5 mg BID NEB Last administered on 10/11/16 21:02; Start 09/27/16 at 09:00 Fluticasone Propionate (Flonase) 2 spray QHS NS Last administered on 10/11/16 19:11; Start 09/27/16 at 21:00 Lisinopril (Prinivil) 20 mg DAILY PO Last administered on 10/11/16 08:22; Start 09/27/16 at 09:00 Pantoprazole Sodium (Protonix) 40 mg QHS PO Last administered on 10/11/16 19: 12; Start 09/27/16 at 21:00 Polyethylene Glycol (miraLAX) 17 gm DAILY PO Last administered on 10/11/16 08: 24; Start 09/27/16 at 09:00 Non-Formulary Medication 2.5 mg QID NEB COPD; Start 09/27/16 at 09:00; Stop at 09:00; Status DC Vitamin D (Vitamin D3) 5,000 unit DAILY PO Last administered on 10/11/16 08:23 ; Start 09/27/16 at 09:00 Multivitamins/ Calcium (Thera-M Plus) 1 tab DAILY PO Last administered on 08:23; Start 09/27/16 at 09:00 Albuterol Sulfate (Ventolin) 2.5 mg RTQID NEB Last administered on 10/11/16 21 :02; Start 09/27/16 at 08:00 Mirtazapine (Remeron) 7.5 mg QHS PO Last administered on 09/27/16 20:07; Start 09/27/16 at 21:00; Stop 09/28/16 at 18:50; Status DC Mirtazapine (Remeron) 15 mg QHS PO Last administered on 10/08/16 20:53; Start 09/28/16 at 21:00; Stop 10/09/16 at 18:24; Status DC Divalproex Sodium (Depakote Sprinkles) 125 mg BID PO Last administered on 08:28; Start 09/29/16 at 21:00; Stop 10/03/16 at 18:17; Status DC Prenat Multivit/ [place]/Iron/Folic Ac (Multivitamin ) 1 tab DAILYBFRSUP PO Last administered on 10/11/16 16:22; Start 09/30/16 at 17:00 Artificial Tears (Refresh Classic) 1 drop PRN Q1HR PRN OU DRY EYE Last administered on 10/01/16 09:42; Start 10/01/16 at 09:45 Buspirone HCl (Buspar) 15 mg TID PO Last administered on 10/11/16 19:11; Start 10/03/16 at 16:00 Nystatin (Nystop) 1 jeb BID TP Last administered on 10/11/16 19:12; Start 10/03 at 21:00 Divalproex Sodium (Depakote Sprinkles) 125 mg QID PO Last administered on 08:21; Start 10/03/16 at 21:00; Stop 10/06/16 at 11:05; Status DC Divalproex Sodium (Depakote Sprinkles) 250 mg TID PO Last administered on 19:11; Start 10/06/16 at 14:00 Quetiapine Fumarate (SEROquel) 62.5 mg [id number] PO Last administered on 16:22; Start 10/06/16 at 13:00 Sertraline HCl (Zoloft) 125 mg HS PO Last administered on 10/10/16t 19:56; Start 10/08/16 at 21:00; Stop 10/11/16 at 16:24; Status DC Trazodone HCl (Desyrel) 100 mg PRN QHS PRN PO INSOMNIA; Start 10/09/16 at 18:30 Active Scripts Active Reported Advair 500-50 Diskus (Fluticasone/Salmeterol) 1 Each Disk.w.dev 1 Each IH BID LAST DOSE GIVEN: DATE: TIME: NEXT DOSE DUE: DATE: TIME: Quetiapine Fumarate 50 Mg Tablet 50 Mg PO [id number] Quetiapine Fumarate 100 Mg Tablet 100 Mg PO HS Mucinex (Guaifenesin) 600 Mg Tablet.er 1 Tab PO BID Buspirone Hcl 10 Mg Tablet 15 Mg PO TID Sertraline Hcl 100 Mg Tablet 100 Mg PO HS Pantoprazole Sodium 40 Mg Tablet.dr 40 Mg PO QHS Zyprexa Zydis (Olanzapine) 5 Mg Tab.rapdis 1.25 Mg PO PRN Q2HR PRN Max dose: 7.5mg/24hrs [place] Ultra Strength Crm (Methyl Salicylate/Menth/Camph) 57 Gm Cream..g. 1 Applic TP PRN QID PRN Milk Of Magnesia (Magnesium Hydroxide) 2,400 Mg/10 Ml Oral.susp 2,400 Mg PO PRN QHS PRN Mag-Al Plus Suspension (Mag Hydrox/Al Hydrox/Simeth) 30 Ml Oral.susp 15 Ml PO PRN AFTMEALHC PRN Lorazepam 0.5 Mg Tablet 0.25 Mg PO PRN Q2HR PRN Budesonide 0.5 Mg/2 Ml Ampul.neb 0.5 Mg NEB BID Albuterol Sulfate Neb Soln (Albuterol Sulfate) 2.5 Mg/3 Ml Vial.neb 2.5 Mg NEB PRN Q6HRS PRN Tylenol (Acetaminophen) 325 Mg Tablet 650 Mg PO PRN Q6HRS PRN Polyethylene Glycol 3350 17 Gm Powd.pack 17 Gm PO DAILY Melatonin 3 Mg Tablet 6 Mg PO QHS Lisinopril 20 Mg Tablet 20 Mg PO DAILY Fluticasone Propionate Nasal [place] (Fluticasone Propionate) 16 Gm [place].susp 2 [place] NS QHS Multivitamins (Multivitamin) 1 Each Tablet 1 Each PO DAILY Vitamin D3 (Cholecalciferol (Vitamin D3)) 5,000 Unit Tablet 5,000 Unit PO DAILY Aspirin 81 Mg Tab.chew 81 Mg PO DAILY Albuterol Sulfate Neb Soln (Albuterol Sulfate) 1.25 Mg/3 Ml Vial.neb 2.5 Mg NEB QID CHARLINE VASQUEZ MD October 11, 2016 21:11
--- NOTE | 2016-10-12 01:33 | PN ---
DATE: 10/10/2016 PSYCHIATRIC PROGRESS NOTE This is late entry of 10/10/2016, covers elements not covered in my initial note. SUBJECTIVE: The patient remains somewhat anxious, talked to her daughter on the telephone, called her being mean to have the patient admitted here and told her to get her "butt up here." REVIEW OF SYSTEMS: Shortness of breath, on O2 supplements. Impaired ambulation in a wheelchair. No CV, , eye, ENT system symptoms on review. MENTAL STATUS EXAMINATION: Oriented reasonably. Speech coherent, abstraction fair, computation impaired, language function intact. Mood and affect still somewhat anxious, labile. LABORATORY DATA: Reviewed. Sodium 127. We will repeat in the morning. IMPRESSION: Unchanged from initial note. PLAN: I have received a list of psychotropics and other medications from the pharmacy consult that can cause hyponatremia, certainly includes all the tricyclics, Tegretol, Cymbalta, Pristiq, Aricept, doxepin, Lexapro, Prozac and Luvox. This is a several page long list that I have reviewed. Namenda, lithium, Zoloft, Risperdal, valproic acid, Geodon, citalopram, Remeron. In view of this, we will go ahead and stop the Zoloft. Vero is not on that list and is at the maximum dosage. She is taking 15 mg t.i.d., make further changes as clinically indicated. Start trazodone at bedtime p.r.n. insomnia with this is on that list of hyponatremic agent as well. MAN Ino VASQUEZ MD DR: KHUSHBOO/jacqueline JOB#: [id number] / [id number]
[2016-10-12] MEDS: ALBUTEROL SULFATE 2.5 MG/3 ML NEBU. NEB SCH ×4 (05:34→20:54)
[2016-10-12] MEDS: QUEtiapine 50 MG TABLET. PO SCH ×3 (05:46→16:59)
[2016-10-12 06:22] VITALS: BP 149/55
[2016-10-12] MEDS: POLYETHYLENE GLYCOL 3350 17 GM PACKET. PO SCH (08:49)
[2016-10-12] MEDS: CHOLECALCIFEROL (VITAMIN D3) 1,000 UNIT TABLET PO SCH (08:49)
[2016-10-12] MEDS: NYSTATIN TOPICAL POWDER 15GM BOTTLE. TP SCH ×2 (08:49→19:31)
[2016-10-12] MEDS: ASPIRIN 81 MG TAB.CHEW PO SCH (08:49)
[2016-10-12] MEDS: busPIRone 15 MG TABLET. PO SCH ×3 (08:49→19:30)
[2016-10-12] MEDS: MULTIVITAMIN with MINERAL TABLET. PO SCH (08:50)
[2016-10-12] MEDS: DIVALPROEX 125 MG CAP.SPRINK PO SCH ×3 (08:50→19:30)
[2016-10-12] MEDS: LISINOPRIL 20 MG TABLET PO SCH (08:50)
[2016-10-12] MEDS: BUDESONIDE 0.5 MG/2 ML NEBU NEB SCH (10:16)
[2016-10-12 16:12] VITALS: BP 169/73
[2016-10-12] MEDS: PRENATAL MULTIVITAMIN TABLET. PO SCH (16:58)
[2016-10-12] MEDS: FLUTICASONE 50MCG/NASAL SPRAY 16GM BOTTLE. NS SCH (19:30)
[2016-10-12] MEDS: MELATONIN 3 MG TABLET PO SCH (19:30)
[2016-10-12] MEDS: QUEtiapine 100 MG TABLET. PO SCH (19:31)
[2016-10-12] MEDS: PANTOPRAZOLE 40 MG TABLET. PO SCH (19:31)
--- NOTE | 2016-10-12 20:42 | PDOC ---
Exam Maciel Demential Exam: Maciel Note: Please also refer to the separate dictated note~for this date of service dictated separately.~Patient seen individually. Discussed the patient with Nursing staff reviewed the chart.~Reviewed interim history and current functioning. Reviewed vital signs,~Labs/ Radiology~and current medications noted below. Continue current treatment with the changes noted in the dictated addendum note Assessment: Vital Signs: Vital Signs Date Time Temp Pulse Resp B/P (MAP) Pulse Ox O2 Delivery O2 Flow Rate FiO2 10/12/16 16:12 98.6 95 20 169/73 (105) 100 2.0 10/12/16 15:53 Nasal Cannula I&O Intake and Output 10/12/16 07:00 Intake Total 1440 ml Balance 1440 ml Intake Oral 1440 ml Current Medications: Meds: Current Medications Acetaminophen (Tylenol) 650 mg PRN Q6HRS PRN PO PAIN / TEMP; Start 09/26/16 at 21:15; Status Cancel Guaifenesin (Mucinex Er) 600 mg BID PO Last administered on 10/12/16 19:30; Start 09/27/16 at 09:00 Acetaminophen (Tylenol) 650 mg PRN Q6HRS PRN PO MILD PAIN/TEMP Last administered on 10/11/16 17:57; Start 09/26/16 at 23:30 Buspirone HCl (Buspar) 15 mg TID PO Last administered on 10/03/16 13:23; Start 09/27/16 at 09:00; Stop 10/03/16 at 15:45; Status DC Lorazepam (Ativan) 0.25 mg PRN Q2HR PRN PO ANXIETY/AGITATION Last administered on 10/10/16 16:44; Start 09/26/16 at 23:30 Melatonin 6 mg QHS PO Last administered on 10/12/16 19:30; Start 09/27/16 at 21 :00 Olanzapine (Zyprexa Zydis) 1.25 mg PRN Q2HR PRN PO PSYCHOSIS Last administered on 10/03/16 16:12; Start 09/26/16 at 23:30 Quetiapine Fumarate (SEROquel) 100 mg HS PO Last administered on 10/12/16 19: 31; Start 09/27/16 at 21:00 Sertraline HCl (Zoloft) 100 mg HS PO Last administered on 10/07/16 20:39; Start 09/27/16 at 21:00; Stop 10/08/16 at 19:00; Status DC Al Hydroxide/Mg Hydroxide (Mylanta Plus Xs) 15 ml PRN AFTMEALHC PRN PO DYSPEPSIA Last administered on 10/08/16 12:33; Start 09/26/16 at 23:30 Magnesium Hydroxide (Milk Of Magnesia) 2,400 mg PRN QHS PRN PO CONSTIPATION; Start 09/26/16 at 23:45 Multi-Ingredient Ointment (Analgesic [place]) 1 jeb PRN QID PRN TP MUSCLE PAIN; Start 09/26/16 at 23:45; Stop 09/26/16 at 23:45; Status DC Quetiapine Fumarate (SEROquel) 50 mg [id number] PO Last administered on 10/06/16 05:43; Start 09/27/16 at 07:00; Stop 10/06/16 at 11:05; Status DC Multi-Ingredient Ointment (Analgesic [place]) 1 jeb PRN QID PRN TP MUSCLE PAIN; Start 09/26/16 at 23:45 Acetaminophen (Tylenol) 650 mg PRN Q6HRS PRN PO PAIN / TEMP; Start 09/26/16 at 23:30; Status UNV Al Hydroxide/Mg Hydroxide (Mylanta Plus Xs) 15 ml PRN AFTMEALHC PRN PO DYSPEPSIA; Start 09/26/16 at 23:30; Status UNV Magnesium Hydroxide (Milk Of Magnesia) 2,400 mg PRN QHS PRN PO CONSTIPATION; Start 09/26/16 at 23:30; Status UNV Albuterol Sulfate (Ventolin) 2.5 mg PRN Q6HRS PRN NEB COPD Last administered on 09/27/16 05:24; Start 09/27/16 at 00:00 Aspirin (Children'S Aspirin) 81 mg DAILY PO Last administered on 10/12/16 08: 49; Start 09/27/16 at 09:00 Budesonide (Pulmicort) 0.5 mg BID NEB Last administered on 10/12/16 10:16; Start 09/27/16 at 09:00 Fluticasone Propionate (Flonase) 2 spray QHS NS Last administered on 10/12/16 19:30; Start 09/27/16 at 21:00 Lisinopril (Prinivil) 20 mg DAILY PO Last administered on 10/12/16 08:50; Start 09/27/16 at 09:00 Pantoprazole Sodium (Protonix) 40 mg QHS PO Last administered on 10/12/16 19: 31; Start 09/27/16 at 21:00 Polyethylene Glycol (miraLAX) 17 gm DAILY PO Last administered on 10/12/16 08: 49; Start 09/27/16 at 09:00 Non-Formulary Medication 2.5 mg QID NEB COPD; Start 09/27/16 at 09:00; Stop at 09:00; Status DC Vitamin D (Vitamin D3) 5,000 unit DAILY PO Last administered on 10/12/16 08:49 ; Start 09/27/16 at 09:00 Multivitamins/ Calcium (Thera-M Plus) 1 tab DAILY PO Last administered on 08:50; Start 09/27/16 at 09:00 Albuterol Sulfate (Ventolin) 2.5 mg RTQID NEB Last administered on 10/12/16 15 :53; Start 09/27/16 at 08:00 Mirtazapine (Remeron) 7.5 mg QHS PO Last administered on 09/27/16 20:07; Start 09/27/16 at 21:00; Stop 09/28/16 at 18:50; Status DC Mirtazapine (Remeron) 15 mg QHS PO Last administered on 10/08/16 20:53; Start 09/28/16 at 21:00; Stop 10/09/16 at 18:24; Status DC Divalproex Sodium (Depakote Sprinkles) 125 mg BID PO Last administered on 08:28; Start 09/29/16 at 21:00; Stop 10/03/16 at 18:17; Status DC Prenat Multivit/ [place]/Iron/Folic Ac (Multivitamin ) 1 tab DAILYBFRSUP PO Last administered on 10/12/16 16:58; Start 09/30/16 at 17:00 Artificial Tears (Refresh Classic) 1 drop PRN Q1HR PRN OU DRY EYE Last administered on 10/01/16 09:42; Start 10/01/16 at 09:45 Buspirone HCl (Buspar) 15 mg TID PO Last administered on 10/12/16 19:30; Start 10/03/16 at 16:00 Nystatin (Nystop) 1 jeb BID TP Last administered on 10/12/16 19:31; Start 10/03 at 21:00 Divalproex Sodium (Depakote Sprinkles) 125 mg QID PO Last administered on 08:21; Start 10/03/16 at 21:00; Stop 10/06/16 at 11:05; Status DC Divalproex Sodium (Depakote Sprinkles) 250 mg TID PO Last administered on 19:30; Start 10/06/16 at 14:00 Quetiapine Fumarate (SEROquel) 62.5 mg [id number] PO Last administered on 16:59; Start 10/06/16 at 13:00 Sertraline HCl (Zoloft) 125 mg HS PO Last administered on 10/10/16 19:56; Start 10/08/16 at 21:00; Stop 10/11/16 at 16:24; Status DC Trazodone HCl (Desyrel) 100 mg PRN QHS PRN PO INSOMNIA; Start 10/09/16 at 18:30 Active Scripts Active Reported Advair 500-50 Diskus (Fluticasone/Salmeterol) 1 Each Disk.w.dev 1 Each IH BID LAST DOSE GIVEN: DATE: TIME: NEXT DOSE DUE: DATE: TIME: Quetiapine Fumarate 50 Mg Tablet 50 Mg PO [id number] Quetiapine Fumarate 100 Mg Tablet 100 Mg PO HS Mucinex (Guaifenesin) 600 Mg Tablet.er 1 Tab PO BID Buspirone Hcl 10 Mg Tablet 15 Mg PO TID Sertraline Hcl 100 Mg Tablet 100 Mg PO HS Pantoprazole Sodium 40 Mg Tablet.dr 40 Mg PO QHS Zyprexa Zydis (Olanzapine) 5 Mg Tab.rapdis 1.25 Mg PO PRN Q2HR PRN Max dose: 7.5mg/24hrs [place] Ultra Strength Crm (Methyl Salicylate/Menth/Camph) 57 Gm Cream..g. 1 Applic TP PRN QID PRN Milk Of Magnesia (Magnesium Hydroxide) 2,400 Mg/10 Ml Oral.susp 2,400 Mg PO PRN QHS PRN Mag-Al Plus Suspension (Mag Hydrox/Al Hydrox/Simeth) 30 Ml Oral.susp 15 Ml PO PRN AFTMEALHC PRN Lorazepam 0.5 Mg Tablet 0.25 Mg PO PRN Q2HR PRN Budesonide 0.5 Mg/2 Ml Ampul.neb 0.5 Mg NEB BID Albuterol Sulfate Neb Soln (Albuterol Sulfate) 2.5 Mg/3 Ml Vial.neb 2.5 Mg NEB PRN Q6HRS PRN Tylenol (Acetaminophen) 325 Mg Tablet 650 Mg PO PRN Q6HRS PRN Polyethylene Glycol 3350 17 Gm Powd.pack 17 Gm PO DAILY Melatonin 3 Mg Tablet 6 Mg PO QHS Lisinopril 20 Mg Tablet 20 Mg PO DAILY Fluticasone Propionate Nasal [place] (Fluticasone Propionate) 16 Gm [place].susp 2 [place] NS QHS Multivitamins (Multivitamin) 1 Each Tablet 1 Each PO DAILY Vitamin D3 (Cholecalciferol (Vitamin D3)) 5,000 Unit Tablet 5,000 Unit PO DAILY Aspirin 81 Mg Tab.chew 81 Mg PO DAILY Albuterol Sulfate Neb Soln (Albuterol Sulfate) 1.25 Mg/3 Ml Vial.neb 2.5 Mg NEB QID CHARLINE VASQUEZ MD October 12, 2016 20:41
--- NOTE | 2016-10-12 21:35 | PN ---
DATE: 10/11/2016 PSYCHIATRIC PROGRESS NOTE This is late entry of 10/11/2016, covers elements not covered in my initial note. SUBJECTIVE: The patient remains anxious, restless, repeatedly wanting breathing treatment, but minimizes she does this when I addressed it with her. ____ she remains on O2 2 liters, sats at 98%, received Ativan x 1 p.r.n., sodium is 128. I have reviewed extensive director state pharmacy notes about drugs causing hyponatremia and we will stop her Zoloft. REVIEW OF SYSTEMS: Shortness of breath, impaired ambulation. No CV, , eye, ENT system symptoms on review. MENTAL STATUS EXAMINATION: Reasonably oriented. Speech is coherent, abstraction fair, computation impaired, language function intact. Mood and affect remains anxious, somewhat labile. She is on 1500 mL fluid restriction. LABORATORY DATA: Reviewed. IMPRESSION: Major depressive disorder; anxiety disorder, unspecified; cognitive disorder, unspecified. Discussed with Mary who feels the patient does not recognize Mary from day to day even though Mary has been her hospital social worker consistently from admission. PLAN: Discontinue the Zoloft, maintain the rest of the psychotropics including Depakote, adjust further as clinically indicated. CHARLINE VASQUEZ MD DR: KHUSHBOO/jacqueline JOB#: [id number] / [id number]
[2016-10-13] MEDS: QUEtiapine 50 MG TABLET. PO SCH ×3 (05:36→16:48)
[2016-10-13] MEDS: ALBUTEROL SULFATE 2.5 MG/3 ML NEBU. NEB SCH ×4 (05:50→20:09)
[2016-10-13 05:56] VITALS: BP 138/66
[2016-10-13] MEDS: NYSTATIN TOPICAL POWDER 15GM BOTTLE. TP SCH ×2 (08:19→19:37)
[2016-10-13] MEDS: POLYETHYLENE GLYCOL 3350 17 GM PACKET. PO SCH (08:19)
[2016-10-13] MEDS: CHOLECALCIFEROL (VITAMIN D3) 1,000 UNIT TABLET PO SCH (08:19)
[2016-10-13] MEDS: LISINOPRIL 20 MG TABLET PO SCH (08:20)
[2016-10-13] MEDS: MULTIVITAMIN with MINERAL TABLET. PO SCH (08:20)
[2016-10-13] MEDS: DIVALPROEX 125 MG CAP.SPRINK PO SCH ×3 (08:20→19:36)
[2016-10-13] MEDS: ASPIRIN 81 MG TAB.CHEW PO SCH (08:20)
[2016-10-13] MEDS: busPIRone 15 MG TABLET. PO SCH ×3 (08:20→19:36)
[2016-10-13] MEDS: BUDESONIDE 0.5 MG/2 ML NEBU NEB SCH ×3 (09:00→20:09)
[2016-10-13 15:54] VITALS: BP 116/73
[2016-10-13] MEDS: PRENATAL MULTIVITAMIN TABLET. PO SCH (16:48)
[2016-10-13] MEDS: MELATONIN 3 MG TABLET PO SCH (19:36)
[2016-10-13] MEDS: FLUTICASONE 50MCG/NASAL SPRAY 16GM BOTTLE. NS SCH (19:36)
[2016-10-13] MEDS: QUEtiapine 100 MG TABLET. PO SCH (19:37)
[2016-10-13] MEDS: PANTOPRAZOLE 40 MG TABLET. PO SCH (19:37)
--- NOTE | 2016-10-13 21:08 | PDOC ---
Exam Maciel Demential Exam: Maciel Note: Please also refer to the separate dictated note~for this date of service dictated separately.~Patient seen individually. Discussed the patient with Nursing staff reviewed the chart.~Reviewed interim history and current functioning. Reviewed vital signs,~Labs/ Radiology~and current medications noted below. Continue current treatment with the changes noted in the dictated addendum note Assessment: Vital Signs: Vital Signs Date Time Temp Pulse Resp B/P (MAP) Pulse Ox O2 Delivery O2 Flow Rate FiO2 10/13/16 20:10 93 Nasal Cannula 2.0 10/13/16 15:54 97.9 110 18 116/73 (87) I&O Intake and Output 10/13/16 07:00 Intake Total 960 ml Balance 960 ml Intake Oral 960 ml # Bowel Movements 2 Current Medications: Meds: Current Medications Acetaminophen (Tylenol) 650 mg PRN Q6HRS PRN PO PAIN / TEMP; Start 09/26/16 at 21:15; Status Cancel Guaifenesin (Mucinex Er) 600 mg BID PO Last administered on 10/13/16 19:37; Start 09/27/16 at 09:00 Acetaminophen (Tylenol) 650 mg PRN Q6HRS PRN PO MILD PAIN/TEMP Last administered on 10/11/16 17:57; Start 09/26/16 at 23:30 Buspirone HCl (Buspar) 15 mg TID PO Last administered on 10/03/16 13:23; Start 09/27/16 at 09:00; Stop 10/03/16 at 15:45; Status DC Lorazepam (Ativan) 0.25 mg PRN Q2HR PRN PO ANXIETY/AGITATION Last administered on 10/10/16 16:44; Start 09/26/16 at 23:30 Melatonin 6 mg QHS PO Last administered on 10/13/16 19:36; Start 09/27/16 at 21 :00 Olanzapine (Zyprexa Zydis) 1.25 mg PRN Q2HR PRN PO PSYCHOSIS Last administered on 10/03/16 16:12; Start 09/26/16 at 23:30 Quetiapine Fumarate (SEROquel) 100 mg HS PO Last administered on 10/13/16 19: 37; Start 09/27/16 at 21:00 Sertraline HCl (Zoloft) 100 mg HS PO Last administered on 10/07/16 20:39; Start 09/27/16 at 21:00; Stop 10/08/16 at 19:00; Status DC Al Hydroxide/Mg Hydroxide (Mylanta Plus Xs) 15 ml PRN AFTMEALHC PRN PO DYSPEPSIA Last administered on 10/08/16 12:33; Start 09/26/16 at 23:30 Magnesium Hydroxide (Milk Of Magnesia) 2,400 mg PRN QHS PRN PO CONSTIPATION; Start 09/26/16 at 23:45 Multi-Ingredient Ointment (Analgesic [place]) 1 jeb PRN QID PRN TP MUSCLE PAIN; Start 09/26/16 at 23:45; Stop 09/26/16 at 23:45; Status DC Quetiapine Fumarate (SEROquel) 50 mg [id number] PO Last administered on 10/06/16 05:43; Start 09/27/16 at 07:00; Stop 10/06/16 at 11:05; Status DC Multi-Ingredient Ointment (Analgesic [place]) 1 jeb PRN QID PRN TP MUSCLE PAIN; Start 09/26/16 at 23:45 Acetaminophen (Tylenol) 650 mg PRN Q6HRS PRN PO PAIN / TEMP; Start 09/26/16 at 23:30; Status UNV Al Hydroxide/Mg Hydroxide (Mylanta Plus Xs) 15 ml PRN AFTMEALHC PRN PO DYSPEPSIA; Start 09/26/16 at 23:30; Status UNV Magnesium Hydroxide (Milk Of Magnesia) 2,400 mg PRN QHS PRN PO CONSTIPATION; Start 09/26/16 at 23:30; Status UNV Albuterol Sulfate (Ventolin) 2.5 mg PRN Q6HRS PRN NEB COPD Last administered on 09/27/16 05:24; Start 09/27/16 at 00:00 Aspirin (Children'S Aspirin) 81 mg DAILY PO Last administered on 10/13/16 08: 20; Start 09/27/16 at 09:00 Budesonide (Pulmicort) 0.5 mg BID NEB Last administered on 10/13/16 20:09; Start 09/27/16 at 09:00 Fluticasone Propionate (Flonase) 2 spray QHS NS Last administered on 10/13/16 19:36; Start 09/27/16 at 21:00 Lisinopril (Prinivil) 20 mg DAILY PO Last administered on 10/13/16 08:20; Start 09/27/16 at 09:00 Pantoprazole Sodium (Protonix) 40 mg QHS PO Last administered on 10/13/16 19: 37; Start 09/27/16 at 21:00 Polyethylene Glycol (miraLAX) 17 gm DAILY PO Last administered on 10/13/16 08: 19; Start 09/27/16 at 09:00 Non-Formulary Medication 2.5 mg QID NEB COPD; Start 09/27/16 at 09:00; Stop at 09:00; Status DC Vitamin D (Vitamin D3) 5,000 unit DAILY PO Last administered on 10/13/16 08:19 ; Start 09/27/16 at 09:00 Multivitamins/ Calcium (Thera-M Plus) 1 tab DAILY PO Last administered on 08:20; Start 09/27/16 at 09:00 Albuterol Sulfate (Ventolin) 2.5 mg RTQID NEB Last administered on 10/13/16 20 :09; Start 09/27/16 at 08:00 Mirtazapine (Remeron) 7.5 mg QHS PO Last administered on 09/27/16 20:07; Start 09/27/16 at 21:00; Stop 09/28/16 at 18:50; Status DC Mirtazapine (Remeron) 15 mg QHS PO Last administered on 10/08/16 20:53; Start 09/28/16 at 21:00; Stop 10/09/16 at 18:24; Status DC Divalproex Sodium (Depakote Sprinkles) 125 mg BID PO Last administered on 08:28; Start 09/29/16 at 21:00; Stop 10/03/16 at 18:17; Status DC Prenat Multivit/ [place]/Iron/Folic Ac (Multivitamin ) 1 tab DAILYBFRSUP PO Last administered on 10/13/16 16:48; Start 09/30/16 at 17:00 Artificial Tears (Refresh Classic) 1 drop PRN Q1HR PRN OU DRY EYE Last administered on 10/01/16 09:42; Start 10/01/16 at 09:45 Buspirone HCl (Buspar) 15 mg TID PO Last administered on 10/13/16 19:36; Start 10/03/16 at 16:00 Nystatin (Nystop) 1 jeb BID TP Last administered on 10/13/16 19:37; Start 10/03 at 21:00 Divalproex Sodium (Depakote Sprinkles) 125 mg QID PO Last administered on 08:21; Start 10/03/16 at 21:00; Stop 10/06/16 at 11:05; Status DC Divalproex Sodium (Depakote Sprinkles) 250 mg TID PO Last administered on 19:36; Start 10/06/16 at 14:00 Quetiapine Fumarate (SEROquel) 62.5 mg [id number] PO Last administered on 16:48; Start 10/06/16 at 13:00 Sertraline HCl (Zoloft) 125 mg HS PO Last administered on 10/10/16 19:56; Start 10/08/16 at 21:00; Stop 10/11/16 at 16:24; Status DC Trazodone HCl (Desyrel) 100 mg PRN QHS PRN PO INSOMNIA; Start 10/09/16 at 18:30 Active Scripts Active Reported Advair 500-50 Diskus (Fluticasone/Salmeterol) 1 Each Disk.w.dev 1 Each IH BID LAST DOSE GIVEN: DATE: TIME: NEXT DOSE DUE: DATE: TIME: Quetiapine Fumarate 50 Mg Tablet 50 Mg PO [id number] Quetiapine Fumarate 100 Mg Tablet 100 Mg PO HS Mucinex (Guaifenesin) 600 Mg Tablet.er 1 Tab PO BID Buspirone Hcl 10 Mg Tablet 15 Mg PO TID Sertraline Hcl 100 Mg Tablet 100 Mg PO HS Pantoprazole Sodium 40 Mg Tablet.dr 40 Mg PO QHS Zyprexa Zydis (Olanzapine) 5 Mg Tab.rapdis 1.25 Mg PO PRN Q2HR PRN Max dose: 7.5mg/24hrs [place] Ultra Strength Crm (Methyl Salicylate/Menth/Camph) 57 Gm Cream..g. 1 Applic TP PRN QID PRN Milk Of Magnesia (Magnesium Hydroxide) 2,400 Mg/10 Ml Oral.susp 2,400 Mg PO PRN QHS PRN Mag-Al Plus Suspension (Mag Hydrox/Al Hydrox/Simeth) 30 Ml Oral.susp 15 Ml PO PRN AFTMEALHC PRN Lorazepam 0.5 Mg Tablet 0.25 Mg PO PRN Q2HR PRN Budesonide 0.5 Mg/2 Ml Ampul.neb 0.5 Mg NEB BID Albuterol Sulfate Neb Soln (Albuterol Sulfate) 2.5 Mg/3 Ml Vial.neb 2.5 Mg NEB PRN Q6HRS PRN Tylenol (Acetaminophen) 325 Mg Tablet 650 Mg PO PRN Q6HRS PRN Polyethylene Glycol 3350 17 Gm Powd.pack 17 Gm PO DAILY Melatonin 3 Mg Tablet 6 Mg PO QHS Lisinopril 20 Mg Tablet 20 Mg PO DAILY Fluticasone Propionate Nasal [place] (Fluticasone Propionate) 16 Gm [place].susp 2 [place] NS QHS Multivitamins (Multivitamin) 1 Each Tablet 1 Each PO DAILY Vitamin D3 (Cholecalciferol (Vitamin D3)) 5,000 Unit Tablet 5,000 Unit PO DAILY Aspirin 81 Mg Tab.chew 81 Mg PO DAILY Albuterol Sulfate Neb Soln (Albuterol Sulfate) 1.25 Mg/3 Ml Vial.neb 2.5 Mg NEB QID CHARLINE VASQUEZ MD October 13, 2016 21:08
[2016-10-14] MEDS: LORazepam 0.5 MG TABLET PO PRN (04:05)
[2016-10-14 05:20] VITALS: BP 135/58
[2016-10-14] MEDS: QUEtiapine 50 MG TABLET. PO SCH ×3 (05:38→16:37)
[2016-10-14] MEDS: ALBUTEROL SULFATE 2.5 MG/3 ML NEBU. NEB SCH ×4 (05:42→20:09)
[2016-10-14] MEDS: CHOLECALCIFEROL (VITAMIN D3) 1,000 UNIT TABLET PO SCH (09:08)
[2016-10-14] MEDS: busPIRone 15 MG TABLET. PO SCH ×3 (09:08→19:57)
[2016-10-14] MEDS: ASPIRIN 81 MG TAB.CHEW PO SCH (09:08)
[2016-10-14] MEDS: POLYETHYLENE GLYCOL 3350 17 GM PACKET. PO SCH (09:08)
[2016-10-14] MEDS: MULTIVITAMIN with MINERAL TABLET. PO SCH (09:08)
[2016-10-14] MEDS: DIVALPROEX 125 MG CAP.SPRINK PO SCH ×3 (09:08→19:57)
[2016-10-14] MEDS: LISINOPRIL 20 MG TABLET PO SCH (09:08)
[2016-10-14] MEDS: NYSTATIN TOPICAL POWDER 15GM BOTTLE. TP SCH ×2 (09:09→19:59)
[2016-10-14] MEDS: BUDESONIDE 0.5 MG/2 ML NEBU NEB SCH ×2 (10:01→20:09)
[2016-10-14 16:27] VITALS: BP 130/74
[2016-10-14] MEDS: PRENATAL MULTIVITAMIN TABLET. PO SCH (16:37)
[2016-10-14] MEDS: ACETAMINOPHEN 325 MG TABLET PO PRN (16:38)
[2016-10-14] MEDS: PANTOPRAZOLE 40 MG TABLET. PO SCH (19:54)
[2016-10-14] MEDS: MELATONIN 3 MG TABLET PO SCH (19:55)
[2016-10-14] MEDS: QUEtiapine 100 MG TABLET. PO SCH (19:55)
[2016-10-14] MEDS: FLUTICASONE 50MCG/NASAL SPRAY 16GM BOTTLE. NS SCH (19:59)
--- NOTE | 2016-10-14 21:11 | PDOC ---
Exam Maciel Demential Exam: Maciel Note: Please also refer to the separate dictated note~for this date of service dictated separately.~Patient seen individually. Discussed the patient with Nursing staff reviewed the chart.~Reviewed interim history and current functioning. Reviewed vital signs,~Labs/ Radiology~and current medications noted below. Continue current treatment with the changes noted in the dictated addendum note Assessment: Vital Signs: Vital Signs Date Time Temp Pulse Resp B/P (MAP) Pulse Ox O2 Delivery O2 Flow Rate FiO2 10/14/16 20:10 94 Nasal Cannula 2.0 10/14/16 16:27 98.4 88 17 130/74 (92) I&O Intake and Output 10/14/16 07:00 Intake Total 1200 ml Balance 1200 ml Intake Oral 1200 ml Current Medications: Meds: Current Medications Acetaminophen (Tylenol) 650 mg PRN Q6HRS PRN PO PAIN / TEMP; Start 09/26/16 at 21:15; Status Cancel Guaifenesin (Mucinex Er) 600 mg BID PO Last administered on 10/14/16 19:54; Start 09/27/16 at 09:00 Acetaminophen (Tylenol) 650 mg PRN Q6HRS PRN PO MILD PAIN/TEMP Last administered on 10/14/16 16:38; Start 09/26/16 at 23:30 Buspirone HCl (Buspar) 15 mg TID PO Last administered on 10/03/16 13:23; Start 09/27/16 at 09:00; Stop 10/03/16 at 15:45; Status DC Lorazepam (Ativan) 0.25 mg PRN Q2HR PRN PO ANXIETY/AGITATION Last administered on 10/14/16 04:05; Start 09/26/16 at 23:30 Melatonin 6 mg QHS PO Last administered on 10/14/16 19:55; Start 09/27/16 at 21 :00 Olanzapine (Zyprexa Zydis) 1.25 mg PRN Q2HR PRN PO PSYCHOSIS Last administered on 10/14/16 09:50; Start 09/26/16 at 23:30 Quetiapine Fumarate (SEROquel) 100 mg HS PO Last administered on 10/14/16 19: 55; Start 09/27/16 at 21:00 Sertraline HCl (Zoloft) 100 mg HS PO Last administered on 10/07/16 20:39; Start 09/27/16 at 21:00; Stop 10/08/16 at 19:00; Status DC Al Hydroxide/Mg Hydroxide (Mylanta Plus Xs) 15 ml PRN AFTMEALHC PRN PO DYSPEPSIA Last administered on 10/08/16 12:33; Start 09/26/16 at 23:30 Magnesium Hydroxide (Milk Of Magnesia) 2,400 mg PRN QHS PRN PO CONSTIPATION; Start 09/26/16 at 23:45 Multi-Ingredient Ointment (Analgesic [place]) 1 jeb PRN QID PRN TP MUSCLE PAIN; Start 09/26/16 at 23:45; Stop 09/26/16 at 23:45; Status DC Quetiapine Fumarate (SEROquel) 50 mg [id number] PO Last administered on 10/06/16 05:43; Start 09/27/16 at 07:00; Stop 10/06/16 at 11:05; Status DC Multi-Ingredient Ointment (Analgesic [place]) 1 jeb PRN QID PRN TP MUSCLE PAIN; Start 09/26/16 at 23:45 Acetaminophen (Tylenol) 650 mg PRN Q6HRS PRN PO PAIN / TEMP; Start 09/26/16 at 23:30; Status UNV Al Hydroxide/Mg Hydroxide (Mylanta Plus Xs) 15 ml PRN AFTMEALHC PRN PO DYSPEPSIA; Start 09/26/16 at 23:30; Status UNV Magnesium Hydroxide (Milk Of Magnesia) 2,400 mg PRN QHS PRN PO CONSTIPATION; Start 09/26/16 at 23:30; Status UNV Albuterol Sulfate (Ventolin) 2.5 mg PRN Q6HRS PRN NEB COPD Last administered on 09/27/16 05:24; Start 09/27/16 at 00:00 Aspirin (Children'S Aspirin) 81 mg DAILY PO Last administered on 10/14/16 09: 08; Start 09/27/16 at 09:00 Budesonide (Pulmicort) 0.5 mg BID NEB Last administered on 10/14/16 20:09; Start 09/27/16 at 09:00 Fluticasone Propionate (Flonase) 2 spray QHS NS Last administered on 10/14/16 19:59; Start 09/27/16 at 21:00 Lisinopril (Prinivil) 20 mg DAILY PO Last administered on 10/14/16 09:08; Start 09/27/16 at 09:00 Pantoprazole Sodium (Protonix) 40 mg QHS PO Last administered on 10/14/16 19: 54; Start 09/27/16 at 21:00 Polyethylene Glycol (miraLAX) 17 gm DAILY PO Last administered on 10/14/16 09: 08; Start 09/27/16 at 09:00 Non-Formulary Medication 2.5 mg QID NEB COPD; Start 09/27/16 at 09:00; Stop at 09:00; Status DC Vitamin D (Vitamin D3) 5,000 unit DAILY PO Last administered on 10/14/16 09:08 ; Start 09/27/16 at 09:00 Multivitamins/ Calcium (Thera-M Plus) 1 tab DAILY PO Last administered on 09:08; Start 09/27/16 at 09:00 Albuterol Sulfate (Ventolin) 2.5 mg RTQID NEB Last administered on 10/14/16 20 :09; Start 09/27/16 at 08:00 Mirtazapine (Remeron) 7.5 mg QHS PO Last administered on 09/27/16 20:07; Start 09/27/16 at 21:00; Stop 09/28/16 at 18:50; Status DC Mirtazapine (Remeron) 15 mg QHS PO Last administered on 10/08/16 20:53; Start 09/28/16 at 21:00; Stop 10/09/16 at 18:24; Status DC Divalproex Sodium (Depakote Sprinkles) 125 mg BID PO Last administered on 08:28; Start 09/29/16 at 21:00; Stop 10/03/16 at 18:17; Status DC Prenat Multivit/ [place]/Iron/Folic Ac (Multivitamin ) 1 tab DAILYBFRSUP PO Last administered on 10/14/16 16:37; Start 09/30/16 at 17:00 Artificial Tears (Refresh Classic) 1 drop PRN Q1HR PRN OU DRY EYE Last administered on 10/01/16 09:42; Start 10/01/16 at 09:45 Buspirone HCl (Buspar) 15 mg TID PO Last administered on 10/14/16 19:57; Start 10/03/16 at 16:00 Nystatin (Nystop) 1 jeb BID TP Last administered on 10/14/16 19:59; Start 10/03 at 21:00 Divalproex Sodium (Depakote Sprinkles) 125 mg QID PO Last administered on 08:21; Start 10/03/16 at 21:00; Stop 10/06/16 at 11:05; Status DC Divalproex Sodium (Depakote Sprinkles) 250 mg TID PO Last administered on 19:57; Start 10/06/16 at 14:00 Quetiapine Fumarate (SEROquel) 62.5 mg [id number] PO Last administered on 16:37; Start 10/06/16 at 13:00 Sertraline HCl (Zoloft) 125 mg HS PO Last administered on 10/10/16 19:56; Start 10/08/16 at 21:00; Stop 10/11/16 at 16:24; Status DC Trazodone HCl (Desyrel) 100 mg PRN QHS PRN PO INSOMNIA; Start 10/09/16 at 18:30 Active Scripts Active Reported Advair 500-50 Diskus (Fluticasone/Salmeterol) 1 Each Disk.w.dev 1 Each IH BID LAST DOSE GIVEN: DATE: TIME: NEXT DOSE DUE: DATE: TIME: Quetiapine Fumarate 50 Mg Tablet 50 Mg PO [id number] Quetiapine Fumarate 100 Mg Tablet 100 Mg PO HS Mucinex (Guaifenesin) 600 Mg Tablet.er 1 Tab PO BID Buspirone Hcl 10 Mg Tablet 15 Mg PO TID Sertraline Hcl 100 Mg Tablet 100 Mg PO HS Pantoprazole Sodium 40 Mg Tablet.dr 40 Mg PO QHS Zyprexa Zydis (Olanzapine) 5 Mg Tab.rapdis 1.25 Mg PO PRN Q2HR PRN Max dose: 7.5mg/24hrs [place] Ultra Strength Crm (Methyl Salicylate/Menth/Camph) 57 Gm Cream..g. 1 Applic TP PRN QID PRN Milk Of Magnesia (Magnesium Hydroxide) 2,400 Mg/10 Ml Oral.susp 2,400 Mg PO PRN QHS PRN Mag-Al Plus Suspension (Mag Hydrox/Al Hydrox/Simeth) 30 Ml Oral.susp 15 Ml PO PRN AFTMEALHC PRN Lorazepam 0.5 Mg Tablet 0.25 Mg PO PRN Q2HR PRN Budesonide 0.5 Mg/2 Ml Ampul.neb 0.5 Mg NEB BID Albuterol Sulfate Neb Soln (Albuterol Sulfate) 2.5 Mg/3 Ml Vial.neb 2.5 Mg NEB PRN Q6HRS PRN Tylenol (Acetaminophen) 325 Mg Tablet 650 Mg PO PRN Q6HRS PRN Polyethylene Glycol 3350 17 Gm Powd.pack 17 Gm PO DAILY Melatonin 3 Mg Tablet 6 Mg PO QHS Lisinopril 20 Mg Tablet 20 Mg PO DAILY Fluticasone Propionate Nasal [place] (Fluticasone Propionate) 16 Gm [place].susp 2 [place] NS QHS Multivitamins (Multivitamin) 1 Each Tablet 1 Each PO DAILY Vitamin D3 (Cholecalciferol (Vitamin D3)) 5,000 Unit Tablet 5,000 Unit PO DAILY Aspirin 81 Mg Tab.chew 81 Mg PO DAILY Albuterol Sulfate Neb Soln (Albuterol Sulfate) 1.25 Mg/3 Ml Vial.neb 2.5 Mg NEB QID CHARLINE VASQUEZ MD October 14, 2016 21:11
--- NOTE | 2016-10-15 00:35 | PN ---
DATE: 10/13/2016 PSYCHIATRIC PROGRESS NOTE This is a late entry of 10/13/2016 covers elements not covered in my initial note. SUBJECTIVE: The patient was staffed at a treatment team meeting with the entire team met with her individually. Sleeping about 6 hours. Appetite is 50%, anxious, restless, but little better than before. REVIEW OF SYSTEMS: Shortness of breath, impaired ambulation in a wheelchair. No CV, , pulmonary, system symptoms on review other than above, less anxious over the past couple of days per nursing report. MENTAL STATUS EXAM: Oriented to herself and situation. Speech coherent, abstraction fair, computation impaired, language function intact. Mood and affect anxious, labile at times. LABORATORY DATA: Reviewed. IMPRESSION: Major depressive disorder, recurrent, in partial remission; anxiety disorder, unspecified; cognitive disorder, unspecified. PLAN: Maintain psychotropics mentioned in my initial note. Adjust as clinically indicated. CHARLINE VASQUEZ MD DR: KHUSHBOO/jacqueline JOB#: [id number] / [id number]
--- NOTE | 2016-10-15 00:38 | PN ---
DATE: 10/12/2016 PSYCHIATRIC PROGRESS NOTE This is a late entry for 10/12/2016, covers elements not covered in my initial note. SUBJECTIVE: No PRNs noted, anxious at times, wants to be discharged, processed this with her, compliant with her medications. I returned a call from her primary care physician, Dr. Yoel Walsh, who said the daughter had asked for him to sign the financial power of energy attorney papers and he wanted to confirm with me prior to doing it. Dr. Walsh rightly remarked that the patient would ask for her breathing treatments many, many times, more than necessary and this was one indicator to him that she was unable to make decisions for herself. Additionally, per social service staff, Mary, often when the patient meets with Mary almost every day, she is unable to recognize her from day to day. REVIEW OF SYSTEMS: Shortness of breath, impaired ambulation, in her wheelchair, on oxygen supplements. No CV, , GI system symptoms on review. MENTAL STATUS EXAM: Oriented to herself and situation. Speech coherent, has some latency, abstraction fair, computation impaired, language function intact. Mood and affect remain somewhat anxious, labile. LABORATORY DATA: Reviewed. IMPRESSION: Major depressive disorder, recurrent; anxiety disorder, unspecified; cognitive disorder, unspecified. PLAN: Continue psychotropics mentioned in my initial note. Valproic acid level is therapeutic. MAN Ino VASQUEZ MD DR: KHUSHBOO/jacqueline JOB#: [id number] / [id number]
[2016-10-15] MEDS: ALBUTEROL SULFATE 2.5 MG/3 ML NEBU. NEB SCH ×4 (05:05→21:06)
[2016-10-15] MEDS: QUEtiapine 50 MG TABLET. PO SCH ×3 (05:21→16:55)
[2016-10-15 06:17] VITALS: BP 135/58
[2016-10-15 08:37] LABS: ALBUMIN 3.1 g/dL (3.4-5.0); ALBUMIN/GLOBULIN RATIO 1.1 (1.0-1.7); CALCIUM 8.4 mg/dL (8.5-10.1); CREATININE 0.6 mg/dL (0.6-1.0); GFR 96.9; POTASSIUM 4.5 mmol/L (3.5-5.1); TOTAL BILIRUBIN 0.3 mg/dL (0.2-1.0); TOTAL PROTEIN 5.8 g/dL (6.4-8.2)
[2016-10-15] MEDS: MULTIVITAMIN with MINERAL TABLET. PO SCH (08:48)
[2016-10-15] MEDS: CHOLECALCIFEROL (VITAMIN D3) 1,000 UNIT TABLET PO SCH (08:49)
[2016-10-15] MEDS: LISINOPRIL 20 MG TABLET PO SCH (08:49)
[2016-10-15] MEDS: ASPIRIN 81 MG TAB.CHEW PO SCH (08:49)
[2016-10-15] MEDS: busPIRone 15 MG TABLET. PO SCH ×3 (08:49→20:11)
[2016-10-15] MEDS: POLYETHYLENE GLYCOL 3350 17 GM PACKET. PO SCH (08:50)
[2016-10-15] MEDS: DIVALPROEX 125 MG CAP.SPRINK PO SCH ×3 (08:50→20:11)
[2016-10-15] MEDS: BUDESONIDE 0.5 MG/2 ML NEBU NEB SCH ×2 (09:21→21:06)
[2016-10-15] MEDS: LORazepam 0.5 MG TABLET PO PRN ×3 (10:52→20:14)
[2016-10-15] MEDS: NYSTATIN TOPICAL POWDER 15GM BOTTLE. TP SCH ×2 (12:55→20:12)
[2016-10-15 16:37] VITALS: BP 152/65
[2016-10-15] MEDS: PRENATAL MULTIVITAMIN TABLET. PO SCH (16:55)
[2016-10-15] MEDS: PANTOPRAZOLE 40 MG TABLET. PO SCH (19:53)
[2016-10-15] MEDS: FLUTICASONE 50MCG/NASAL SPRAY 16GM BOTTLE. NS SCH (19:53)
[2016-10-15] MEDS: MELATONIN 3 MG TABLET PO SCH (19:54)
[2016-10-15] MEDS: QUEtiapine 100 MG TABLET. PO SCH (20:12)
--- NOTE | 2016-10-15 21:02 | PDOC ---
Exam Maciel Demential Exam: Maciel Note: Please also refer to the separate dictated note~for this date of service dictated separately.~Patient seen individually. Discussed the patient with Nursing staff reviewed the chart.~Reviewed interim history and current functioning. Reviewed vital signs,~Labs/ Radiology~and current medications noted below. Continue current treatment with the changes noted in the dictated addendum note Assessment: Vital Signs: Vital Signs Date Time Temp Pulse Resp B/P (MAP) Pulse Ox O2 Delivery O2 Flow Rate FiO2 10/15/16 16:37 98.1 84 20 152/65 (94) 98 2.0 10/15/16 15:09 Nasal Cannula I&O Intake and Output 10/15/16 07:00 Intake Total 1080 ml Balance 1080 ml Intake Oral 1080 ml # Bowel Movements 1 Labs: Laboratory Tests Test 10/15/16 07:10 Sodium Level 130 mmol/L (136-145) L Potassium Level 4.5 mmol/L (3.5-5.1) Chloride Level 91 mmol/L (98-107) L Carbon Dioxide Level 34 mmol/L (21-32) H Anion Gap 5 (6-14) L Blood Urea Nitrogen 10 mg/dL (7-20) Creatinine 0.6 mg/dL (0.6-1.0) Estimated GFR (Cockcroft-Gault) 96.9 BUN/Creatinine Ratio 17 (6-20) Glucose Level 93 mg/dL (70-99) Calcium Level 8.4 mg/dL (8.5-10.1) L Total Bilirubin 0.3 mg/dL (0.2-1.0) Aspartate Amino Transferase (AST) 19 U/L (15-37) Alanine Aminotransferase (ALT) 26 U/L (14-59) Alkaline Phosphatase 66 U/L (46-116) Total Protein 5.8 g/dL (6.4-8.2) L Albumin 3.1 g/dL (3.4-5.0) L Albumin/Globulin Ratio 1.1 (1.0-1.7) Current Medications: Meds: Current Medications Acetaminophen (Tylenol) 650 mg PRN Q6HRS PRN PO PAIN / TEMP; Start 09/26/16 at 21:15; Status Cancel Guaifenesin (Mucinex Er) 600 mg BID PO Last administered on 10/15/16t 08:48; Start 09/27/16 at 09:00 Acetaminophen (Tylenol) 650 mg PRN Q6HRS PRN PO MILD PAIN/TEMP Last administered on 10/14/16 16:38; Start 09/26/16 at 23:30 Buspirone HCl (Buspar) 15 mg TID PO Last administered on 10/03/16 13:23; Start 09/27/16 at 09:00; Stop 10/03/16 at 15:45; Status DC Lorazepam (Ativan) 0.25 mg PRN Q2HR PRN PO ANXIETY/AGITATION Last administered on 10/15/16 12:54; Start 09/26/16 at 23:30 Melatonin 6 mg QHS PO Last administered on 10/14/16 19:55; Start 09/27/16 at 21 :00 Olanzapine (Zyprexa Zydis) 1.25 mg PRN Q2HR PRN PO PSYCHOSIS Last administered on 10/14/16 09:50; Start 09/26/16 at 23:30 Quetiapine Fumarate (SEROquel) 100 mg HS PO Last administered on 10/14/16 19: 55; Start 09/27/16 at 21:00 Sertraline HCl (Zoloft) 100 mg HS PO Last administered on 10/07/16 20:39; Start 09/27/16 at 21:00; Stop 10/08/16 at 19:00; Status DC Al Hydroxide/Mg Hydroxide (Mylanta Plus Xs) 15 ml PRN AFTMEALHC PRN PO DYSPEPSIA Last administered on 10/08/16 12:33; Start 09/26/16 at 23:30 Magnesium Hydroxide (Milk Of Magnesia) 2,400 mg PRN QHS PRN PO CONSTIPATION; Start 09/26/16 at 23:45 Multi-Ingredient Ointment (Analgesic [place]) 1 jeb PRN QID PRN TP MUSCLE PAIN; Start 09/26/16 at 23:45; Stop 09/26/16 at 23:45; Status DC Quetiapine Fumarate (SEROquel) 50 mg [id number] PO Last administered on 10/06/16 05:43; Start 09/27/16 at 07:00; Stop 10/06/16 at 11:05; Status DC Multi-Ingredient Ointment (Analgesic [place]) 1 jeb PRN QID PRN TP MUSCLE PAIN; Start 09/26/16 at 23:45 Acetaminophen (Tylenol) 650 mg PRN Q6HRS PRN PO PAIN / TEMP; Start 09/26/16 at 23:30; Status UNV Al Hydroxide/Mg Hydroxide (Mylanta Plus Xs) 15 ml PRN AFTMEALHC PRN PO DYSPEPSIA; Start 09/26/16 at 23:30; Status UNV Magnesium Hydroxide (Milk Of Magnesia) 2,400 mg PRN QHS PRN PO CONSTIPATION; Start 09/26/16 at 23:30; Status UNV Albuterol Sulfate (Ventolin) 2.5 mg PRN Q6HRS PRN NEB COPD Last administered on 09/27/16 05:24; Start 09/27/16 at 00:00 Aspirin (Children'S Aspirin) 81 mg DAILY PO Last administered on 10/15/16 08: 49; Start 09/27/16 at 09:00 Budesonide (Pulmicort) 0.5 mg BID NEB Last administered on 10/15/16 09:21; Start 09/27/16 at 09:00 Fluticasone Propionate (Flonase) 2 spray QHS NS Last administered on 10/14/16 19:59; Start 09/27/16 at 21:00 Lisinopril (Prinivil) 20 mg DAILY PO Last administered on 10/15/16 08:49; Start 09/27/16 at 09:00 Pantoprazole Sodium (Protonix) 40 mg QHS PO Last administered on 10/14/16 19: 54; Start 09/27/16 at 21:00 Polyethylene Glycol (miraLAX) 17 gm DAILY PO Last administered on 10/15/16 08: 50; Start 09/27/16 at 09:00 Non-Formulary Medication 2.5 mg QID NEB COPD; Start 09/27/16 at 09:00; Stop at 09:00; Status DC Vitamin D (Vitamin D3) 5,000 unit DAILY PO Last administered on 10/15/16 08:49 ; Start 09/27/16 at 09:00 Multivitamins/ Calcium (Thera-M Plus) 1 tab DAILY PO Last administered on 08:48; Start 09/27/16 at 09:00 Albuterol Sulfate (Ventolin) 2.5 mg RTQID NEB Last administered on 10/15/16 15 :09; Start 09/27/16 at 08:00 Mirtazapine (Remeron) 7.5 mg QHS PO Last administered on 09/27/16 20:07; Start 09/27/16 at 21:00; Stop 09/28/16 at 18:50; Status DC Mirtazapine (Remeron) 15 mg QHS PO Last administered on 10/08/16 20:53; Start 09/28/16 at 21:00; Stop 10/09/16 at 18:24; Status DC Divalproex Sodium (Depakote Sprinkles) 125 mg BID PO Last administered on 08:28; Start 09/29/16 at 21:00; Stop 10/03/16 at 18:17; Status DC Prenat Multivit/ [place]/Iron/Folic Ac (Multivitamin ) 1 tab DAILYBFRSUP PO Last administered on 10/14/16 16:37; Start 09/30/16 at 17:00 Artificial Tears (Refresh Classic) 1 drop PRN Q1HR PRN OU DRY EYE Last administered on 10/01/16 09:42; Start 10/01/16 at 09:45 Buspirone HCl (Buspar) 15 mg TID PO Last administered on 10/15/16 12:55; Start 10/03/16 at 16:00 Nystatin (Nystop) 1 jeb BID TP Last administered on 10/15/16 12:55; Start 10/03 at 21:00 Divalproex Sodium (Depakote Sprinkles) 125 mg QID PO Last administered on 08:21; Start 10/03/16 at 21:00; Stop 10/06/16 at 11:05; Status DC Divalproex Sodium (Depakote Sprinkles) 250 mg TID PO Last administered on 12:54; Start 10/06/16 at 14:00 Quetiapine Fumarate (SEROquel) 62.5 mg [id number] PO Last administered on 12:54; Start 10/06/16 at 13:00 Sertraline HCl (Zoloft) 125 mg HS PO Last administered on 10/10/16t 19:56; Start 10/08/16 at 21:00; Stop 10/11/16 at 16:24; Status DC Trazodone HCl (Desyrel) 100 mg PRN QHS PRN PO INSOMNIA; Start 10/09/16 at 18:30 Active Scripts Active Reported Advair 500-50 Diskus (Fluticasone/Salmeterol) 1 Each Disk.w.dev 1 Each IH BID LAST DOSE GIVEN: DATE: TIME: NEXT DOSE DUE: DATE: TIME: Quetiapine Fumarate 50 Mg Tablet 50 Mg PO [id number] Quetiapine Fumarate 100 Mg Tablet 100 Mg PO HS Mucinex (Guaifenesin) 600 Mg Tablet.er 1 Tab PO BID Buspirone Hcl 10 Mg Tablet 15 Mg PO TID Sertraline Hcl 100 Mg Tablet 100 Mg PO HS Pantoprazole Sodium 40 Mg Tablet.dr 40 Mg PO QHS Zyprexa Zydis (Olanzapine) 5 Mg Tab.rapdis 1.25 Mg PO PRN Q2HR PRN Max dose: 7.5mg/24hrs [place] Ultra Strength Crm (Methyl Salicylate/Menth/Camph) 57 Gm Cream..g. 1 Applic TP PRN QID PRN Milk Of Magnesia (Magnesium Hydroxide) 2,400 Mg/10 Ml Oral.susp 2,400 Mg PO PRN QHS PRN Mag-Al Plus Suspension (Mag Hydrox/Al Hydrox/Simeth) 30 Ml Oral.susp 15 Ml PO PRN AFTMEALHC PRN Lorazepam 0.5 Mg Tablet 0.25 Mg PO PRN Q2HR PRN Budesonide 0.5 Mg/2 Ml Ampul.neb 0.5 Mg NEB BID Albuterol Sulfate Neb Soln (Albuterol Sulfate) 2.5 Mg/3 Ml Vial.neb 2.5 Mg NEB PRN Q6HRS PRN Tylenol (Acetaminophen) 325 Mg Tablet 650 Mg PO PRN Q6HRS PRN Polyethylene Glycol 3350 17 Gm Powd.pack 17 Gm PO DAILY Melatonin 3 Mg Tablet 6 Mg PO QHS Lisinopril 20 Mg Tablet 20 Mg PO DAILY Fluticasone Propionate Nasal [place] (Fluticasone Propionate) 16 Gm [place].susp 2 [place] NS QHS Multivitamins (Multivitamin) 1 Each Tablet 1 Each PO DAILY Vitamin D3 (Cholecalciferol (Vitamin D3)) 5,000 Unit Tablet 5,000 Unit PO DAILY Aspirin 81 Mg Tab.chew 81 Mg PO DAILY Albuterol Sulfate Neb Soln (Albuterol Sulfate) 1.25 Mg/3 Ml Vial.neb 2.5 Mg NEB QID Diagnosis: Problems: (1) Major depressive disorder (2) Dementia with behavioral disturbance (3) Anxiety disorder (4) Dementia in Alzheimer's disease with delusions (5) Dementia in Alzheimer's disease with depression (6) Impulse control disorder CHARLINE VASQUEZ MD October 15, 2016 21:02
[2016-10-16] MEDS: ALBUTEROL SULFATE 2.5 MG/3 ML NEBU. NEB SCH ×4 (05:24→20:10)
[2016-10-16] MEDS: QUEtiapine 50 MG TABLET. PO SCH ×3 (06:39→16:21)
[2016-10-16 06:59] VITALS: BP 133/67
[2016-10-16] MEDS: CHOLECALCIFEROL (VITAMIN D3) 1,000 UNIT TABLET PO SCH (08:51)
[2016-10-16] MEDS: DIVALPROEX 125 MG CAP.SPRINK PO SCH ×3 (08:51→19:23)
[2016-10-16] MEDS: busPIRone 15 MG TABLET. PO SCH ×3 (08:51→19:23)
[2016-10-16] MEDS: LISINOPRIL 20 MG TABLET PO SCH (08:51)
[2016-10-16] MEDS: POLYETHYLENE GLYCOL 3350 17 GM PACKET. PO SCH (08:52)
[2016-10-16] MEDS: MULTIVITAMIN with MINERAL TABLET. PO SCH (08:52)
[2016-10-16] MEDS: ASPIRIN 81 MG TAB.CHEW PO SCH (08:52)
[2016-10-16] MEDS: NYSTATIN TOPICAL POWDER 15GM BOTTLE. TP SCH ×2 (08:53→19:26)
[2016-10-16] MEDS: BUDESONIDE 0.5 MG/2 ML NEBU NEB SCH ×2 (10:29→20:10)
[2016-10-16 16:18] VITALS: BP 118/59
[2016-10-16] MEDS: PRENATAL MULTIVITAMIN TABLET. PO SCH (16:21)
[2016-10-16] MEDS: MELATONIN 3 MG TABLET PO SCH (19:23)
[2016-10-16] MEDS: PANTOPRAZOLE 40 MG TABLET. PO SCH (19:23)
[2016-10-16] MEDS: QUEtiapine 100 MG TABLET. PO SCH (19:24)
[2016-10-16] MEDS: FLUTICASONE 50MCG/NASAL SPRAY 16GM BOTTLE. NS SCH (19:24)
--- NOTE | 2016-10-16 19:51 | PDOC ---
Exam Maciel Demential Exam: Maciel Note: Please also refer to the separate dictated note~for this date of service dictated separately.~Patient seen individually. Discussed the patient with Nursing staff reviewed the chart.~Reviewed interim history and current functioning. Reviewed vital signs,~Labs/ Radiology~and current medications noted below. Continue current treatment with the changes noted in the dictated addendum note Assessment: Vital Signs: Vital Signs Date Time Temp Pulse Resp B/P (MAP) Pulse Ox O2 Delivery O2 Flow Rate FiO2 10/16/16 16:18 98.2 88 18 118/59 (78) 98 2.0 10/16/16 15:11 Nasal Cannula I&O Intake and Output 10/16/16 07:00 Intake Total 960 ml Balance 960 ml Intake Oral 960 ml # Bowel Movements 2 Current Medications: Meds: Current Medications Acetaminophen (Tylenol) 650 mg PRN Q6HRS PRN PO PAIN / TEMP; Start 09/26/16 at 21:15; Status Cancel Guaifenesin (Mucinex Er) 600 mg BID PO Last administered on 10/16/16 19:23; Start 09/27/16 at 09:00 Acetaminophen (Tylenol) 650 mg PRN Q6HRS PRN PO MILD PAIN/TEMP Last administered on 10/14/16 16:38; Start 09/26/16 at 23:30 Buspirone HCl (Buspar) 15 mg TID PO Last administered on 10/03/16 13:23; Start 09/27/16 at 09:00; Stop 10/03/16 at 15:45; Status DC Lorazepam (Ativan) 0.25 mg PRN Q2HR PRN PO ANXIETY/AGITATION Last administered on 10/15/16 20:14; Start 09/26/16 at 23:30 Melatonin 6 mg QHS PO Last administered on 10/16/16 19:23; Start 09/27/16 at 21 :00 Olanzapine (Zyprexa Zydis) 1.25 mg PRN Q2HR PRN PO PSYCHOSIS Last administered on 10/14/16 09:50; Start 09/26/16 at 23:30 Quetiapine Fumarate (SEROquel) 100 mg HS PO Last administered on 10/16/16 19: 24; Start 09/27/16 at 21:00 Sertraline HCl (Zoloft) 100 mg HS PO Last administered on 10/07/16 20:39; Start 09/27/16 at 21:00; Stop 10/08/16 at 19:00; Status DC Al Hydroxide/Mg Hydroxide (Mylanta Plus Xs) 15 ml PRN AFTMEALHC PRN PO DYSPEPSIA Last administered on 10/08/16 12:33; Start 09/26/16 at 23:30 Magnesium Hydroxide (Milk Of Magnesia) 2,400 mg PRN QHS PRN PO CONSTIPATION; Start 09/26/16 at 23:45 Multi-Ingredient Ointment (Analgesic [place]) 1 jeb PRN QID PRN TP MUSCLE PAIN; Start 09/26/16 at 23:45; Stop 09/26/16 at 23:45; Status DC Quetiapine Fumarate (SEROquel) 50 mg [id number] PO Last administered on 10/06/16 05:43; Start 09/27/16 at 07:00; Stop 10/06/16 at 11:05; Status DC Multi-Ingredient Ointment (Analgesic [place]) 1 jeb PRN QID PRN TP MUSCLE PAIN; Start 09/26/16 at 23:45 Acetaminophen (Tylenol) 650 mg PRN Q6HRS PRN PO PAIN / TEMP; Start 09/26/16 at 23:30; Status UNV Al Hydroxide/Mg Hydroxide (Mylanta Plus Xs) 15 ml PRN AFTMEALHC PRN PO DYSPEPSIA; Start 09/26/16 at 23:30; Status UNV Magnesium Hydroxide (Milk Of Magnesia) 2,400 mg PRN QHS PRN PO CONSTIPATION; Start 09/26/16 at 23:30; Status UNV Albuterol Sulfate (Ventolin) 2.5 mg PRN Q6HRS PRN NEB COPD Last administered on 09/27/16 05:24; Start 09/27/16 at 00:00 Aspirin (Children'S Aspirin) 81 mg DAILY PO Last administered on 10/16/16 08: 52; Start 09/27/16 at 09:00 Budesonide (Pulmicort) 0.5 mg BID NEB Last administered on 10/16/16 10:29; Start 09/27/16 at 09:00 Fluticasone Propionate (Flonase) 2 spray QHS NS Last administered on 10/16/16 19:24; Start 09/27/16 at 21:00 Lisinopril (Prinivil) 20 mg DAILY PO Last administered on 10/16/16 08:51; Start 09/27/16 at 09:00 Pantoprazole Sodium (Protonix) 40 mg QHS PO Last administered on 10/16/16 19: 23; Start 09/27/16 at 21:00 Polyethylene Glycol (miraLAX) 17 gm DAILY PO Last administered on 10/16/16 08: 52; Start 09/27/16 at 09:00 Non-Formulary Medication 2.5 mg QID NEB COPD; Start 09/27/16 at 09:00; Stop at 09:00; Status DC Vitamin D (Vitamin D3) 5,000 unit DAILY PO Last administered on 10/16/16 08:51 ; Start 09/27/16 at 09:00 Multivitamins/ Calcium (Thera-M Plus) 1 tab DAILY PO Last administered on 08:52; Start 09/27/16 at 09:00 Albuterol Sulfate (Ventolin) 2.5 mg RTQID NEB Last administered on 10/16/16 15 :11; Start 09/27/16 at 08:00 Mirtazapine (Remeron) 7.5 mg QHS PO Last administered on 09/27/16 20:07; Start 09/27/16 at 21:00; Stop 09/28/16 at 18:50; Status DC Mirtazapine (Remeron) 15 mg QHS PO Last administered on 10/08/16 20:53; Start 09/28/16 at 21:00; Stop 10/09/16 at 18:24; Status DC Divalproex Sodium (Depakote Sprinkles) 125 mg BID PO Last administered on 08:28; Start 09/29/16 at 21:00; Stop 10/03/16 at 18:17; Status DC Prenat Multivit/ [place]/Iron/Folic Ac (Multivitamin ) 1 tab DAILYBFRSUP PO Last administered on 10/16/16 16:21; Start 09/30/16 at 17:00 Artificial Tears (Refresh Classic) 1 drop PRN Q1HR PRN OU DRY EYE Last administered on 10/01/16 09:42; Start 10/01/16 at 09:45 Buspirone HCl (Buspar) 15 mg TID PO Last administered on 10/16/16 19:23; Start 10/03/16 at 16:00 Nystatin (Nystop) 1 jeb BID TP Last administered on 10/16/16 19:26; Start 10/03 at 21:00 Divalproex Sodium (Depakote Sprinkles) 125 mg QID PO Last administered on 08:21; Start 10/03/16 at 21:00; Stop 10/06/16 at 11:05; Status DC Divalproex Sodium (Depakote Sprinkles) 250 mg TID PO Last administered on 19:23; Start 10/06/16 at 14:00 Quetiapine Fumarate (SEROquel) 62.5 mg [id number] PO Last administered on 16:21; Start 10/06/16 at 13:00 Sertraline HCl (Zoloft) 125 mg HS PO Last administered on 10/10/16 19:56; Start 10/08/16 at 21:00; Stop 10/11/16 at 16:24; Status DC Trazodone HCl (Desyrel) 100 mg PRN QHS PRN PO INSOMNIA; Start 10/09/16 at 18:30 Atorvastatin Calcium (Lipitor) 20 mg QHS PO ; Start 10/16/16 at 21:00 Active Scripts Active Reported Advair 500-50 Diskus (Fluticasone/Salmeterol) 1 Each Disk.w.dev 1 Each IH BID LAST DOSE GIVEN: DATE: TIME: NEXT DOSE DUE: DATE: TIME: Quetiapine Fumarate 50 Mg Tablet 50 Mg PO [id number] Quetiapine Fumarate 100 Mg Tablet 100 Mg PO HS Mucinex (Guaifenesin) 600 Mg Tablet.er 1 Tab PO BID Buspirone Hcl 10 Mg Tablet 15 Mg PO TID Sertraline Hcl 100 Mg Tablet 100 Mg PO HS Pantoprazole Sodium 40 Mg Tablet.dr 40 Mg PO QHS Zyprexa Zydis (Olanzapine) 5 Mg Tab.rapdis 1.25 Mg PO PRN Q2HR PRN Max dose: 7.5mg/24hrs [place] Ultra Strength Crm (Methyl Salicylate/Menth/Camph) 57 Gm Cream..g. 1 Applic TP PRN QID PRN Milk Of Magnesia (Magnesium Hydroxide) 2,400 Mg/10 Ml Oral.susp 2,400 Mg PO PRN QHS PRN Mag-Al Plus Suspension (Mag Hydrox/Al Hydrox/Simeth) 30 Ml Oral.susp 15 Ml PO PRN AFTMEALHC PRN Lorazepam 0.5 Mg Tablet 0.25 Mg PO PRN Q2HR PRN Budesonide 0.5 Mg/2 Ml Ampul.neb 0.5 Mg NEB BID Albuterol Sulfate Neb Soln (Albuterol Sulfate) 2.5 Mg/3 Ml Vial.neb 2.5 Mg NEB PRN Q6HRS PRN Tylenol (Acetaminophen) 325 Mg Tablet 650 Mg PO PRN Q6HRS PRN Polyethylene Glycol 3350 17 Gm Powd.pack 17 Gm PO DAILY Melatonin 3 Mg Tablet 6 Mg PO QHS Lisinopril 20 Mg Tablet 20 Mg PO DAILY Fluticasone Propionate Nasal [place] (Fluticasone Propionate) 16 Gm [place].susp 2 [place] NS QHS Multivitamins (Multivitamin) 1 Each Tablet 1 Each PO DAILY Vitamin D3 (Cholecalciferol (Vitamin D3)) 5,000 Unit Tablet 5,000 Unit PO DAILY Aspirin 81 Mg Tab.chew 81 Mg PO DAILY Albuterol Sulfate Neb Soln (Albuterol Sulfate) 1.25 Mg/3 Ml Vial.neb 2.5 Mg NEB QID CHARLINE VASQUEZ MD October 16, 2016 19:51
[2016-10-16] MEDS: ATORVASTATIN CALCIUM 20 MG TABLET PO SCH (23:23)
[2016-10-17] MEDS: ALBUTEROL SULFATE 2.5 MG/3 ML NEBU. NEB SCH ×4 (05:02→20:15)
[2016-10-17] MEDS: QUEtiapine 50 MG TABLET. PO SCH ×3 (05:38→17:23)
[2016-10-17 06:02] VITALS: BP 132/48
[2016-10-17] MEDS: ACETAMINOPHEN 325 MG TABLET PO PRN (06:41)
[2016-10-17 06:55] LABS: BASO % 1 % (0-3); EOS # 0.6 x10^3/uL (0.0-0.7); EOS % 7 % (0-3); HEMATOCRIT 31.8 % (36.0-47.0); HEMOGLOBIN 10.7 g/dL (12.0-15.5); LYMPH # 1.9 x10^3/uL (1.0-4.8); LYMPH % 24 % (24-48); MEAN CORPUSCULAR HEMOGLOBIN 28 pg (25-35); MEAN CORPUSCULAR HGB CONC 34 g/dL (31-37); MEAN CORPUSCULAR VOLUME 84 fL (79-100); MONO % 13 % (0-9); NEUT # 4.3 x10^3uL (1.8-7.7); NEUT % 55 % (31-73); PLATELET COUNT 293 x10^3/uL (140-400); RED BLOOD COUNT 3.78 x10^6/uL (3.50-5.40); RED CELL DISTRIBUTION WIDTH 14.3 % (11.5-14.5); WHITE BLOOD COUNT 7.8 x10^3/uL (4.0-11.0)
[2016-10-17 07:15] LABS: ALBUMIN 3.4 g/dL (3.4-5.0); ALBUMIN/GLOBULIN RATIO 1.1 (1.0-1.7); ALK PHOS 71 U/L (46-116); ALT (SGPT) 25 U/L (14-59); ANION GAP 3 (6-14); AST (SGOT) 15 U/L (15-37); BLOOD UREA NITROGEN 13 mg/dL (7-20); BUN/CREATININE RATIO 22 (6-20); CARBON DIOXIDE 36 mmol/L (21-32); CHLORIDE 93 mmol/L (98-107); CREATININE 0.6 mg/dL (0.6-1.0); GFR 96.9; GLUCOSE 97 mg/dL (70-99); POTASSIUM 4.8 mmol/L (3.5-5.1); SODIUM 132 mmol/L (136-145); TOTAL BILIRUBIN 0.3 mg/dL (0.2-1.0); TOTAL PROTEIN 6.5 g/dL (6.4-8.2)
[2016-10-17 07:17] LABS: VAL ACID 62 mcg/mL (50-100)
[2016-10-17] MEDS: MULTIVITAMIN with MINERAL TABLET. PO SCH (08:48)
[2016-10-17] MEDS: POLYETHYLENE GLYCOL 3350 17 GM PACKET. PO SCH (08:48)
[2016-10-17] MEDS: DIVALPROEX 125 MG CAP.SPRINK PO SCH ×3 (08:48→20:10)
[2016-10-17] MEDS: ASPIRIN 81 MG TAB.CHEW PO SCH (08:48)
[2016-10-17] MEDS: CHOLECALCIFEROL (VITAMIN D3) 1,000 UNIT TABLET PO SCH (08:49)
[2016-10-17] MEDS: NYSTATIN TOPICAL POWDER 15GM BOTTLE. TP SCH ×2 (08:49→20:14)
[2016-10-17] MEDS: busPIRone 15 MG TABLET. PO SCH ×3 (08:49→20:09)
[2016-10-17] MEDS: LISINOPRIL 20 MG TABLET PO SCH (08:49)
[2016-10-17] MEDS: LORazepam 0.5 MG TABLET PO PRN (10:50)
[2016-10-17] MEDS: BUDESONIDE 0.5 MG/2 ML NEBU NEB SCH ×2 (12:30→20:15)
[2016-10-17 16:55] VITALS: BP 116/51
[2016-10-17] MEDS: PRENATAL MULTIVITAMIN TABLET. PO SCH (17:23)
--- NOTE | 2016-10-17 20:04 | PDOC ---
Exam Maciel Demential Exam: Maciel Note: Please also refer to the separate dictated note~for this date of service dictated separately.~Patient seen individually. Discussed the patient with Nursing staff reviewed the chart.~Reviewed interim history and current functioning. Reviewed vital signs,~Labs/ Radiology~and current medications noted below. Continue current treatment with the changes noted in the dictated addendum note Assessment: Vital Signs: Vital Signs Date Time Temp Pulse Resp B/P (MAP) Pulse Ox O2 Delivery O2 Flow Rate FiO2 10/17/16 16:55 98.2 97 18 116/51 (72) 96 Nasal Cannula 2.0 I&O Intake and Output 10/17/16 07:00 Intake Total 1120 ml Balance 1120 ml Intake Oral 1120 ml # Bowel Movements 1 Labs: Laboratory Tests Test 10/17/16 06:35 White Blood Count 7.8 x10^3/uL (4.0-11.0) Red Blood Count 3.78 x10^6/uL (3.50-5.40) Hemoglobin 10.7 g/dL (12.0-15.5) L Hematocrit 31.8 % (36.0-47.0) L Mean Corpuscular Volume 84 fL (79-100) Mean Corpuscular Hemoglobin 28 pg (25-35) Mean Corpuscular Hemoglobin Concent 34 g/dL (31-37) Red Cell Distribution Width 14.3 % (11.5-14.5) Platelet Count 293 x10^3/uL (140-400) Neutrophils (%) (Auto) 55 % (31-73) Lymphocytes (%) (Auto) 24 % (24-48) Monocytes (%) (Auto) 13 % (0-9) H Eosinophils (%) (Auto) 7 % (0-3) H Basophils (%) (Auto) 1 % (0-3) Neutrophils # (Auto) 4.3 x10^3uL (1.8-7.7) Lymphocytes # (Auto) 1.9 x10^3/uL (1.0-4.8) Monocytes # (Auto) 1.0 x10^3/uL (0.0-1.1) Eosinophils # (Auto) 0.6 x10^3/uL (0.0-0.7) Basophils # (Auto) 0.0 x10^3/uL (0.0-0.2) Sodium Level 132 mmol/L (136-145) L Potassium Level 4.8 mmol/L (3.5-5.1) Chloride Level 93 mmol/L (98-107) L Carbon Dioxide Level 36 mmol/L (21-32) H Anion Gap 3 (6-14) L Blood Urea Nitrogen 13 mg/dL (7-20) Creatinine 0.6 mg/dL (0.6-1.0) Estimated GFR (Cockcroft-Gault) 96.9 BUN/Creatinine Ratio 22 (6-20) H Glucose Level 97 mg/dL (70-99) Calcium Level 9.0 mg/dL (8.5-10.1) Magnesium Level 2.0 mg/dL (1.8-2.4) Total Bilirubin 0.3 mg/dL (0.2-1.0) Aspartate Amino Transferase (AST) 15 U/L (15-37) Alanine Aminotransferase (ALT) 25 U/L (14-59) Alkaline Phosphatase 71 U/L (46-116) Total Protein 6.5 g/dL (6.4-8.2) Albumin 3.4 g/dL (3.4-5.0) Albumin/Globulin Ratio 1.1 (1.0-1.7) Valproic Acid Level 62 mcg/mL (50-100) Valproic Acid Last Dose Date 10/16/2016 Valproic Acid Last Dose Time 2100 Current Medications: Meds: Current Medications Acetaminophen (Tylenol) 650 mg PRN Q6HRS PRN PO PAIN / TEMP; Start 09/26/16 at 21:15; Status Cancel Guaifenesin (Mucinex Er) 600 mg BID PO Last administered on 10/17/16 08:49; Start 09/27/16 at 09:00 Acetaminophen (Tylenol) 650 mg PRN Q6HRS PRN PO MILD PAIN/TEMP Last administered on 10/17/16 06:41; Start 09/26/16 at 23:30 Buspirone HCl (Buspar) 15 mg TID PO Last administered on 10/03/16 13:23; Start 09/27/16 at 09:00; Stop 10/03/16 at 15:45; Status DC Lorazepam (Ativan) 0.25 mg PRN Q2HR PRN PO ANXIETY/AGITATION Last administered on 10/17/16 10:50; Start 09/26/16 at 23:30 Melatonin 6 mg QHS PO Last administered on 10/16/16 19:23; Start 09/27/16 at 21 :00 Olanzapine (Zyprexa Zydis) 1.25 mg PRN Q2HR PRN PO PSYCHOSIS Last administered on 10/14/16 09:50; Start 09/26/16 at 23:30 Quetiapine Fumarate (SEROquel) 100 mg HS PO Last administered on 10/16/16 19: 24; Start 09/27/16 at 21:00 Sertraline HCl (Zoloft) 100 mg HS PO Last administered on 10/07/16 20:39; Start 09/27/16 at 21:00; Stop 10/08/16 at 19:00; Status DC Al Hydroxide/Mg Hydroxide (Mylanta Plus Xs) 15 ml PRN AFTMEALHC PRN PO DYSPEPSIA Last administered on 10/08/16 12:33; Start 09/26/16 at 23:30 Magnesium Hydroxide (Milk Of Magnesia) 2,400 mg PRN QHS PRN PO CONSTIPATION; Start 09/26/16 at 23:45 Multi-Ingredient Ointment (Analgesic [place]) 1 jeb PRN QID PRN TP MUSCLE PAIN; Start 09/26/16 at 23:45; Stop 09/26/16 at 23:45; Status DC Quetiapine Fumarate (SEROquel) 50 mg [id number] PO Last administered on 10/06/16 05:43; Start 09/27/16 at 07:00; Stop 10/06/16 at 11:05; Status DC Multi-Ingredient Ointment (Analgesic [place]) 1 jeb PRN QID PRN TP MUSCLE PAIN; Start 09/26/16 at 23:45 Acetaminophen (Tylenol) 650 mg PRN Q6HRS PRN PO PAIN / TEMP; Start 09/26/16 at 23:30; Status UNV Al Hydroxide/Mg Hydroxide (Mylanta Plus Xs) 15 ml PRN AFTMEALHC PRN PO DYSPEPSIA; Start 09/26/16 at 23:30; Status UNV Magnesium Hydroxide (Milk Of Magnesia) 2,400 mg PRN QHS PRN PO CONSTIPATION; Start 09/26/16 at 23:30; Status UNV Albuterol Sulfate (Ventolin) 2.5 mg PRN Q6HRS PRN NEB COPD Last administered on 09/27/16 05:24; Start 09/27/16 at 00:00 Aspirin (Children'S Aspirin) 81 mg DAILY PO Last administered on 10/17/16 08: 48; Start 09/27/16 at 09:00 Budesonide (Pulmicort) 0.5 mg BID NEB Last administered on 10/17/16 12:30; Start 09/27/16 at 09:00 Fluticasone Propionate (Flonase) 2 spray QHS NS Last administered on 10/16/16 19:24; Start 09/27/16 at 21:00 Lisinopril (Prinivil) 20 mg DAILY PO Last administered on 10/17/16 08:49; Start 09/27/16 at 09:00 Pantoprazole Sodium (Protonix) 40 mg QHS PO Last administered on 10/16/16 19: 23; Start 09/27/16 at 21:00 Polyethylene Glycol (miraLAX) 17 gm DAILY PO Last administered on 10/17/16 08: 48; Start 09/27/16 at 09:00 Non-Formulary Medication 2.5 mg QID NEB COPD; Start 09/27/16 at 09:00; Stop at 09:00; Status DC Vitamin D (Vitamin D3) 5,000 unit DAILY PO Last administered on 10/17/16 08:49 ; Start 09/27/16 at 09:00 Multivitamins/ Calcium (Thera-M Plus) 1 tab DAILY PO Last administered on 08:48; Start 09/27/16 at 09:00 Albuterol Sulfate (Ventolin) 2.5 mg RTQID NEB Last administered on 10/17/16 16 :37; Start 09/27/16 at 08:00 Mirtazapine (Remeron) 7.5 mg QHS PO Last administered on 09/27/16 20:07; Start 09/27/16 at 21:00; Stop 09/28/16 at 18:50; Status DC Mirtazapine (Remeron) 15 mg QHS PO Last administered on 10/08/16 20:53; Start 09/28/16 at 21:00; Stop 10/09/16 at 18:24; Status DC Divalproex Sodium (Depakote Sprinkles) 125 mg BID PO Last administered on 08:28; Start 09/29/16 at 21:00; Stop 10/03/16 at 18:17; Status DC Prenat Multivit/ [place]/Iron/Folic Ac (Multivitamin ) 1 tab DAILYBFRSUP PO Last administered on 10/17/16 17:23; Start 09/30/16 at 17:00 Artificial Tears (Refresh Classic) 1 drop PRN Q1HR PRN OU DRY EYE Last administered on 10/01/16 09:42; Start 10/01/16 at 09:45 Buspirone HCl (Buspar) 15 mg TID PO Last administered on 10/17/16 14:38; Start 10/03/16 at 16:00 Nystatin (Nystop) 1 jeb BID TP Last administered on 10/17/16 08:49; Start 10/03 at 21:00 Divalproex Sodium (Depakote Sprinkles) 125 mg QID PO Last administered on 08:21; Start 10/03/16 at 21:00; Stop 10/06/16 at 11:05; Status DC Divalproex Sodium (Depakote Sprinkles) 250 mg TID PO Last administered on 14:38; Start 10/06/16 at 14:00 Quetiapine Fumarate (SEROquel) 62.5 mg [id number] PO Last administered on 17:23; Start 10/06/16 at 13:00 Sertraline HCl (Zoloft) 125 mg HS PO Last administered on 10/10/16 19:56; Start 10/08/16 at 21:00; Stop 10/11/16 at 16:24; Status DC Trazodone HCl (Desyrel) 100 mg PRN QHS PRN PO INSOMNIA; Start 10/09/16 at 18:30 Atorvastatin Calcium (Lipitor) 20 mg QHS PO ; Start 10/16/16 at 21:00 Trazodone HCl (Desyrel) 12.5 mg [id number] PO ; Start 5/23/17 at 09:00 Active Scripts Active Reported Advair 500-50 Diskus (Fluticasone/Salmeterol) 1 Each Disk.w.dev 1 Each IH BID LAST DOSE GIVEN: DATE: TIME: NEXT DOSE DUE: DATE: TIME: Quetiapine Fumarate 50 Mg Tablet 50 Mg PO [id number] Quetiapine Fumarate 100 Mg Tablet 100 Mg PO HS Mucinex (Guaifenesin) 600 Mg Tablet.er 1 Tab PO BID Buspirone Hcl 10 Mg Tablet 15 Mg PO TID Sertraline Hcl 100 Mg Tablet 100 Mg PO HS Pantoprazole Sodium 40 Mg Tablet.dr 40 Mg PO QHS Zyprexa Zydis (Olanzapine) 5 Mg Tab.rapdis 1.25 Mg PO PRN Q2HR PRN Max dose: 7.5mg/24hrs [place] Ultra Strength Crm (Methyl Salicylate/Menth/Camph) 57 Gm Cream..g. 1 Applic TP PRN QID PRN Milk Of Magnesia (Magnesium Hydroxide) 2,400 Mg/10 Ml Oral.susp 2,400 Mg PO PRN QHS PRN Mag-Al Plus Suspension (Mag Hydrox/Al Hydrox/Simeth) 30 Ml Oral.susp 15 Ml PO PRN AFTMEALHC PRN Lorazepam 0.5 Mg Tablet 0.25 Mg PO PRN Q2HR PRN Budesonide 0.5 Mg/2 Ml Ampul.neb 0.5 Mg NEB BID Albuterol Sulfate Neb Soln (Albuterol Sulfate) 2.5 Mg/3 Ml Vial.neb 2.5 Mg NEB PRN Q6HRS PRN Tylenol (Acetaminophen) 325 Mg Tablet 650 Mg PO PRN Q6HRS PRN Polyethylene Glycol 3350 17 Gm Powd.pack 17 Gm PO DAILY Melatonin 3 Mg Tablet 6 Mg PO QHS Lisinopril 20 Mg Tablet 20 Mg PO DAILY Fluticasone Propionate Nasal [place] (Fluticasone Propionate) 16 Gm [place].susp 2 [place] NS QHS Multivitamins (Multivitamin) 1 Each Tablet 1 Each PO DAILY Vitamin D3 (Cholecalciferol (Vitamin D3)) 5,000 Unit Tablet 5,000 Unit PO DAILY Aspirin 81 Mg Tab.chew 81 Mg PO DAILY Albuterol Sulfate Neb Soln (Albuterol Sulfate) 1.25 Mg/3 Ml Vial.neb 2.5 Mg NEB QID CHARLINE VASQUEZ MD October 17, 2016 20:04
[2016-10-17] MEDS: PANTOPRAZOLE 40 MG TABLET. PO SCH (20:09)
[2016-10-17] MEDS: ATORVASTATIN CALCIUM 20 MG TABLET PO SCH (20:09)
[2016-10-17] MEDS: QUEtiapine 100 MG TABLET. PO SCH (20:10)
[2016-10-17] MEDS: MELATONIN 3 MG TABLET PO SCH (20:10)
[2016-10-17] MEDS: FLUTICASONE 50MCG/NASAL SPRAY 16GM BOTTLE. NS SCH (20:13)
[2016-10-18] MEDS: LORazepam 0.5 MG TABLET PO PRN ×2 (03:39→03:51)
[2016-10-18] MEDS: ALBUTEROL SULFATE 2.5 MG/3 ML NEBU. NEB PRN (03:51)
--- NOTE | 2016-10-18 04:52 | PN ---
DATE: 10/14/2016 PSYCHIATRIC PROGRESS NOTE This is late entry of 10/14/2016, covers elements not covered in my initial note. SUBJECTIVE: The patient was confused in the morning, incontinent of bowel in the morning, anxious, restless, believing her daughter did not know she was here. Later in the day, she was less anxious. Remains on 1500 mL fluid restriction. REVIEW OF SYSTEMS: Shortness of breath, impaired ambulation, on O2 supplements. No CV, , eye, ENT system symptoms on review. MENTAL STATUS EXAMINATION: Reasonably oriented. Speech coherent, fixated on discharge plans, abstraction fair, computation impaired, language function intact, somewhat anxious. No suicidal or homicidal ideation. LABORATORY DATA: Reviewed. IMPRESSION: Unchanged from initial note. PLAN: Continue current psychotropics, check CMP in morning of 10/15/2016. MAN Ino VASQUEZ MD DR: KHUSHBOO/jacqueline JOB#: [id number] / [id number]
[2016-10-18] MEDS: QUEtiapine 50 MG TABLET. PO SCH ×3 (05:02→16:45)
[2016-10-18] MEDS: ALBUTEROL SULFATE 2.5 MG/3 ML NEBU. NEB SCH ×4 (05:24→20:45)
--- NOTE | 2016-10-18 06:07 | PN ---
DATE: 10/15/2016 This late entry for 10/15/2016 covers elements not covered in my initial note. SUBJECTIVE: The patient remains somewhat anxious, attention seeking, little more confused in the evening. REVIEW OF SYSTEMS: Shortness of breath on O2 supplements, impaired ambulation. No CV, , eye, ENT system symptoms on review. Ambulation impaired, in a wheelchair. MENTAL STATUS EXAM: Oriented to herself and situation. Speech coherent, abstraction fair, computation impaired, language function intact. Attention span short. IMPRESSION: Unchanged from initial note. PLAN: Continue current psychotropics. May need to increase Seroquel if mood lability resurfaces. MAN Ino VASQUEZ MD DR: KHUSHBOO/jacqueline JOB#: [id number] / [id number]
[2016-10-18 06:19] VITALS: BP 147/61
--- NOTE | 2016-10-18 06:21 | PN ---
DATE: 10/16/2016 SUBJECTIVE: This is a late entry 10/16/2016, covers elements not covered in my initial note. I met with the patient the evening of 10/16/2016. She remains anxious and med seeking at times, but less so than before. REVIEW OF SYSTEMS: Shortness of breath and impaired ambulation in a wheelchair. No CV, , or GI system symptoms on review. MENTAL STATUS EXAM: Oriented to herself and situation. Some short term memory deficit is evident. Abstraction fair, computation impaired, and language function intact. Mood and affect remain somewhat anxious and labile. LABORATORY DATA: Reviewed. IMPRESSION: Unchanged from initial note. PLAN: Continue current psychotropics. Valproic acid level is therapeutic at 59. CHARLINE VASQUEZ MD DR: KHUSHBOO/jacqueline JOB#: [id number] / [id number]
[2016-10-18] MEDS: busPIRone 15 MG TABLET. PO SCH ×3 (08:57→19:34)
[2016-10-18] MEDS: ASPIRIN 81 MG TAB.CHEW PO SCH (08:57)
[2016-10-18] MEDS: DIVALPROEX 125 MG CAP.SPRINK PO SCH ×3 (08:58→19:34)
[2016-10-18] MEDS: MULTIVITAMIN with MINERAL TABLET. PO SCH (08:58)
[2016-10-18] MEDS: CHOLECALCIFEROL (VITAMIN D3) 1,000 UNIT TABLET PO SCH (08:58)
[2016-10-18] MEDS: LISINOPRIL 20 MG TABLET PO SCH (08:58)
[2016-10-18] MEDS: POLYETHYLENE GLYCOL 3350 17 GM PACKET. PO SCH (08:59)
[2016-10-18] MEDS: traZODone 50 MG TABLET. PO SCH ×2 (09:00→13:11)
[2016-10-18 09:38] LABS: BASO # 0.1 x10^3/uL (0.0-0.2); BASO % 1 % (0-3); EOS # 0.5 x10^3/uL (0.0-0.7); EOS % 6 % (0-3); HEMATOCRIT 32.8 % (36.0-47.0); HEMOGLOBIN 11.1 g/dL (12.0-15.5); LYMPH # 1.7 x10^3/uL (1.0-4.8); LYMPH % 22 % (24-48); MEAN CORPUSCULAR HEMOGLOBIN 28 pg (25-35); MEAN CORPUSCULAR HGB CONC 34 g/dL (31-37); MEAN CORPUSCULAR VOLUME 84 fL (79-100); MONO # 0.8 x10^3/uL (0.0-1.1); MONO % 10 % (0-9); NEUT % 62 % (31-73); PLATELET COUNT 304 x10^3/uL (140-400); RED BLOOD COUNT 3.91 x10^6/uL (3.50-5.40); RED CELL DISTRIBUTION WIDTH 14.2 % (11.5-14.5); WHITE BLOOD COUNT 8.1 x10^3/uL (4.0-11.0)
[2016-10-18 09:48] LABS: ALBUMIN 3.5 g/dL (3.4-5.0); ALBUMIN/GLOBULIN RATIO 1.2 (1.0-1.7); CALCIUM 9.1 mg/dL (8.5-10.1); CREATININE 0.6 mg/dL (0.6-1.0); GFR 96.9; POTASSIUM 4.3 mmol/L (3.5-5.1); TOTAL BILIRUBIN 0.1 mg/dL (0.2-1.0); TOTAL PROTEIN 6.5 g/dL (6.4-8.2)
[2016-10-18] MEDS: NYSTATIN TOPICAL POWDER 15GM BOTTLE. TP SCH ×2 (09:58→19:35)
[2016-10-18] MEDS: BUDESONIDE 0.5 MG/2 ML NEBU NEB SCH ×2 (10:43→20:45)
[2016-10-18] MEDS ORDERED: ATOR20TA PO (14:10)
[2016-10-18] MEDS ORDERED: DIVA125C PO (14:11)
[2016-10-18] MEDS ORDERED: NYST60PO TP (14:12)
[2016-10-18] MEDS ORDERED: POLY15DR20 OU (14:13)
[2016-10-18] MEDS ORDERED: PNV1TABL25 PO (14:14)
[2016-10-18] MEDS ORDERED: GUAI-40 PO (14:15)
[2016-10-18] MEDS ORDERED: TRAZ50TA15 PO (14:17)
[2016-10-18] MEDS ORDERED: TRAZ-90 PO (14:17)
[2016-10-18 16:33] VITALS: BP 141/64
[2016-10-18] MEDS: PRENATAL MULTIVITAMIN TABLET. PO SCH (16:44)
[2016-10-18] MEDS: ATORVASTATIN CALCIUM 20 MG TABLET PO SCH (19:34)
[2016-10-18] MEDS: MELATONIN 3 MG TABLET PO SCH (19:34)
[2016-10-18] MEDS: FLUTICASONE 50MCG/NASAL SPRAY 16GM BOTTLE. NS SCH (19:34)
[2016-10-18] MEDS: PANTOPRAZOLE 40 MG TABLET. PO SCH (19:35)
[2016-10-18] MEDS: QUEtiapine 100 MG TABLET. PO SCH (19:35)
--- NOTE | 2016-10-18 21:11 | PDOC ---
Exam Maciel Demential Exam: Maciel Note: Please also refer to the separate dictated note~for this date of service dictated separately.~Patient seen individually. Discussed the patient with Nursing staff reviewed the chart.~Reviewed interim history and current functioning. Reviewed vital signs,~Labs/ Radiology~and current medications noted below. Continue current treatment with the changes noted in the dictated addendum note Assessment: Vital Signs: Vital Signs Date Time Temp Pulse Resp B/P (MAP) Pulse Ox O2 Delivery O2 Flow Rate FiO2 10/18/16 20:52 97 Nasal Cannula 2.0 10/18/16 16:33 97.9 87 20 141/64 (89) I&O Intake and Output 10/18/16 07:00 Intake Total 1320 ml Balance 1320 ml Intake Oral 1320 ml # Bowel Movements 1 Labs: Laboratory Tests Test 10/18/16 09:20 White Blood Count 8.1 x10^3/uL (4.0-11.0) Red Blood Count 3.91 x10^6/uL (3.50-5.40) Hemoglobin 11.1 g/dL (12.0-15.5) L Hematocrit 32.8 % (36.0-47.0) L Mean Corpuscular Volume 84 fL (79-100) Mean Corpuscular Hemoglobin 28 pg (25-35) Mean Corpuscular Hemoglobin Concent 34 g/dL (31-37) Red Cell Distribution Width 14.2 % (11.5-14.5) Platelet Count 304 x10^3/uL (140-400) Neutrophils (%) (Auto) 62 % (31-73) Lymphocytes (%) (Auto) 22 % (24-48) L Monocytes (%) (Auto) 10 % (0-9) H Eosinophils (%) (Auto) 6 % (0-3) H Basophils (%) (Auto) 1 % (0-3) Neutrophils # (Auto) 5.0 x10^3uL (1.8-7.7) Lymphocytes # (Auto) 1.7 x10^3/uL (1.0-4.8) Monocytes # (Auto) 0.8 x10^3/uL (0.0-1.1) Eosinophils # (Auto) 0.5 x10^3/uL (0.0-0.7) Basophils # (Auto) 0.1 x10^3/uL (0.0-0.2) Sodium Level 132 mmol/L (136-145) L Potassium Level 4.3 mmol/L (3.5-5.1) Chloride Level 94 mmol/L (98-107) L Carbon Dioxide Level 35 mmol/L (21-32) H Anion Gap 3 (6-14) L Blood Urea Nitrogen 12 mg/dL (7-20) Creatinine 0.6 mg/dL (0.6-1.0) Estimated GFR (Cockcroft-Gault) 96.9 BUN/Creatinine Ratio 20 (6-20) Glucose Level 123 mg/dL (70-99) H Calcium Level 9.1 mg/dL (8.5-10.1) Total Bilirubin 0.1 mg/dL (0.2-1.0) L Aspartate Amino Transferase (AST) 14 U/L (15-37) L Alanine Aminotransferase (ALT) 22 U/L (14-59) Alkaline Phosphatase 62 U/L (46-116) Total Protein 6.5 g/dL (6.4-8.2) Albumin 3.5 g/dL (3.4-5.0) Albumin/Globulin Ratio 1.2 (1.0-1.7) Current Medications: Meds: Current Medications Acetaminophen (Tylenol) 650 mg PRN Q6HRS PRN PO PAIN / TEMP; Start 09/26/16 at 21:15; Status Cancel Guaifenesin (Mucinex Er) 600 mg BID PO Last administered on 10/18/16 19:34; Start 09/27/16 at 09:00 Acetaminophen (Tylenol) 650 mg PRN Q6HRS PRN PO MILD PAIN/TEMP Last administered on 10/17/16 06:41; Start 09/26/16 at 23:30 Buspirone HCl (Buspar) 15 mg TID PO Last administered on 10/03/16 13:23; Start 09/27/16 at 09:00; Stop 10/03/16 at 15:45; Status DC Lorazepam (Ativan) 0.25 mg PRN Q2HR PRN PO ANXIETY/AGITATION Last administered on 10/18/16 03:51; Start 09/26/16 at 23:30 Melatonin 6 mg QHS PO Last administered on 10/18/16 19:34; Start 09/27/16 at 21 :00 Olanzapine (Zyprexa Zydis) 1.25 mg PRN Q2HR PRN PO PSYCHOSIS Last administered on 10/14/16 09:50; Start 09/26/16 at 23:30 Quetiapine Fumarate (SEROquel) 100 mg HS PO Last administered on 10/18/16 19: 35; Start 09/27/16 at 21:00 Sertraline HCl (Zoloft) 100 mg HS PO Last administered on 10/07/16 20:39; Start 09/27/16 at 21:00; Stop 10/08/16 at 19:00; Status DC Al Hydroxide/Mg Hydroxide (Mylanta Plus Xs) 15 ml PRN AFTMEALHC PRN PO DYSPEPSIA Last administered on 10/08/16 12:33; Start 09/26/16 at 23:30 Magnesium Hydroxide (Milk Of Magnesia) 2,400 mg PRN QHS PRN PO CONSTIPATION; Start 09/26/16 at 23:45 Multi-Ingredient Ointment (Analgesic [place]) 1 qian PRN QID PRN TP MUSCLE PAIN; Start 09/26/16 at 23:45; Stop 09/26/16 at 23:45; Status DC Quetiapine Fumarate (SEROquel) 50 mg [id number] PO Last administered on 10/06/16 05:43; Start 09/27/16 at 07:00; Stop 10/06/16 at 11:05; Status DC Multi-Ingredient Ointment (Analgesic [place]) 1 qian PRN QID PRN TP MUSCLE PAIN; Start 09/26/16 at 23:45 Acetaminophen (Tylenol) 650 mg PRN Q6HRS PRN PO PAIN / TEMP; Start 09/26/16 at 23:30; Status UNV Al Hydroxide/Mg Hydroxide (Mylanta Plus Xs) 15 ml PRN AFTMEALHC PRN PO DYSPEPSIA; Start 09/26/16 at 23:30; Status UNV Magnesium Hydroxide (Milk Of Magnesia) 2,400 mg PRN QHS PRN PO CONSTIPATION; Start 09/26/16 at 23:30; Status UNV Albuterol Sulfate (Ventolin) 2.5 mg PRN Q6HRS PRN NEB COPD Last administered on 10/18/16 03:51; Start 09/27/16 at 00:00 Aspirin (Children'S Aspirin) 81 mg DAILY PO Last administered on 10/18/16 08: 57; Start 09/27/16 at 09:00 Budesonide (Pulmicort) 0.5 mg BID NEB Last administered on 10/18/16 20:45; Start 09/27/16 at 09:00 Fluticasone Propionate (Flonase) 2 spray QHS NS Last administered on 10/18/16 19:34; Start 09/27/16 at 21:00 Lisinopril (Prinivil) 20 mg DAILY PO Last administered on 10/18/16 08:58; Start 09/27/16 at 09:00 Pantoprazole Sodium (Protonix) 40 mg QHS PO Last administered on 10/18/16 19: 35; Start 09/27/16 at 21:00 Polyethylene Glycol (miraLAX) 17 gm DAILY PO Last administered on 10/18/16 08: 59; Start 09/27/16 at 09:00 Non-Formulary Medication 2.5 mg QID NEB COPD; Start 09/27/16 at 09:00; Stop at 09:00; Status DC Vitamin D (Vitamin D3) 5,000 unit DAILY PO Last administered on 10/18/16 08:58 ; Start 09/27/16 at 09:00 Multivitamins/ Calcium (Thera-M Plus) 1 tab DAILY PO Last administered on 08:58; Start 09/27/16 at 09:00 Albuterol Sulfate (Ventolin) 2.5 mg RTQID NEB Last administered on 10/18/16 20 :45; Start 09/27/16 at 08:00 Mirtazapine (Remeron) 7.5 mg QHS PO Last administered on 09/27/16 20:07; Start 09/27/16 at 21:00; Stop 09/28/16 at 18:50; Status DC Mirtazapine (Remeron) 15 mg QHS PO Last administered on 10/08/16 20:53; Start 09/28/16 at 21:00; Stop 10/09/16 at 18:24; Status DC Divalproex Sodium (Depakote Sprinkles) 125 mg BID PO Last administered on 08:28; Start 09/29/16 at 21:00; Stop 10/03/16 at 18:17; Status DC Prenat Multivit/ Community Organization Director/Iron/Folic Ac (Multivitamin ) 1 tab [id number] PO Last administered on 10/18/16 16:44; Start 09/30/16 at 17:00 Artificial Tears (Refresh Classic) 1 drop PRN Q1HR PRN OU DRY EYE Last administered on 10/01/16 09:42; Start 10/01/16 at 09:45 Buspirone HCl (Buspar) 15 mg TID PO Last administered on 10/18/16 19:34; Start 10/03/16 at 16:00 Nystatin (Nystop) 1 qian BID TP Last administered on 10/18/16 19:35; Start 10/03 at 21:00 Divalproex Sodium (Depakote Sprinkles) 125 mg QID PO Last administered on 08:21; Start 10/03/16 at 21:00; Stop 10/06/16 at 11:05; Status DC Divalproex Sodium (Depakote Sprinkles) 250 mg TID PO Last administered on 19:34; Start 10/06/16 at 14:00 Quetiapine Fumarate (SEROquel) 62.5 mg [id number] PO Last administered on 16:45; Start 10/06/16 at 13:00 Sertraline HCl (Zoloft) 125 mg HS PO Last administered on 10/10/16 19:56; Start 10/08/16 at 21:00; Stop 10/11/16 at 16:24; Status DC Trazodone HCl (Desyrel) 100 mg PRN QHS PRN PO INSOMNIA; Start 10/09/16 at 18:30 Atorvastatin Calcium (Lipitor) 20 mg QHS PO Last administered on 10/18/16 19: 34; Start 10/16/16 at 21:00 Trazodone HCl (Desyrel) 12.5 mg [id number] PO Last administered on 10/18/16 13:11; Start 10/18/16 at 09:00 Active Scripts Active Reported Trazodone Hcl 50 Mg Tablet 12.5 Tab PO BID92 Trazodone Hcl 100 Mg Tablet 1 Tab PO PRN QHS PRN Mucinex D Er Tablet (Guaifenesin/Pseudoephedrne Hcl) 1 Each Tab.er.12h 1 Tab PO BID Tablet (Pnv Cmb#95/Ferrous Fumarate/Fa) 1 Each Tablet 1 Tab PO DAILYBFRSUP Polyvinyl Alcohol 15 Ml Drops 1 Drop OU PRN Q1HR PRN Nystop (Nystatin) 60 Gm Powder 1 Qian TP BID Depakote Sprinkle (Divalproex Sodium) 125 Mg Cap.sprink 250 Mg PO TID Lipitor (Atorvastatin Calcium) 20 Mg Tablet 1 Tab PO QHS Advair 500-50 Diskus (Fluticasone/Salmeterol) 1 Each Disk.w.dev 1 Each IH BID LAST DOSE GIVEN: DATE: TIME: NEXT DOSE DUE: DATE: TIME: Quetiapine Fumarate 50 Mg Tablet 50 Mg PO [id number] Quetiapine Fumarate 100 Mg Tablet 100 Mg PO HS Mucinex (Guaifenesin) 600 Mg Tablet.er 1 Tab PO BID Buspirone Hcl 10 Mg Tablet 15 Mg PO TID Sertraline Hcl 100 Mg Tablet 100 Mg PO HS Pantoprazole Sodium 40 Mg Tablet.dr 40 Mg PO QHS Zyprexa Zydis (Olanzapine) 5 Mg Tab.rapdis 1.25 Mg PO PRN Q2HR PRN Max dose: 7.5mg/24hrs [place] Ultra Strength Crm (Methyl Salicylate/Menth/Camph) 57 Gm Cream..g. 1 Applic TP PRN QID PRN Milk Of Magnesia (Magnesium Hydroxide) 2,400 Mg/10 Ml Oral.susp 2,400 Mg PO PRN QHS PRN Mag-Al Plus Suspension (Mag Hydrox/Al Hydrox/Simeth) 30 Ml Oral.susp 15 Ml PO PRN AFTMEALHC PRN Lorazepam 0.5 Mg Tablet 0.25 Mg PO PRN Q2HR PRN Budesonide 0.5 Mg/2 Ml Ampul.neb 0.5 Mg NEB BID Albuterol Sulfate Neb Soln (Albuterol Sulfate) 2.5 Mg/3 Ml Vial.neb 2.5 Mg NEB PRN Q6HRS PRN Tylenol (Acetaminophen) 325 Mg Tablet 650 Mg PO PRN Q6HRS PRN Polyethylene Glycol 3350 17 Gm Powd.pack 17 Gm PO DAILY Melatonin 3 Mg Tablet 6 Mg PO QHS Lisinopril 20 Mg Tablet 20 Mg PO DAILY Fluticasone Propionate Nasal [place] (Fluticasone Propionate) 16 Gm [place].susp 2 [place] NS QHS Multivitamins (Multivitamin) 1 Each Tablet 1 Each PO DAILY Vitamin D3 (Cholecalciferol (Vitamin D3)) 5,000 Unit Tablet 5,000 Unit PO DAILY Aspirin 81 Mg Tab.chew 81 Mg PO DAILY Albuterol Sulfate Neb Soln (Albuterol Sulfate) 1.25 Mg/3 Ml Vial.neb 2.5 Mg NEB QID CHARLINE VASQUEZ MD October 18, 2016 21:11
[2016-10-19] MEDS: QUEtiapine 50 MG TABLET. PO SCH ×2 (05:34→12:52)
[2016-10-19] MEDS: ALBUTEROL SULFATE 2.5 MG/3 ML NEBU. NEB SCH ×2 (05:34→10:08)
[2016-10-19 06:19] VITALS: BP 146/77
[2016-10-19] MEDS: ACETAMINOPHEN 325 MG TABLET PO PRN (06:25)
[2016-10-19 06:52] LABS: BASO # 0.1 x10^3/uL (0.0-0.2); BASO % 1 % (0-3); EOS # 0.5 x10^3/uL (0.0-0.7); EOS % 6 % (0-3); HEMATOCRIT 32.4 % (36.0-47.0); HEMOGLOBIN 10.9 g/dL (12.0-15.5); LYMPH # 2.2 x10^3/uL (1.0-4.8); LYMPH % 26 % (24-48); MEAN CORPUSCULAR HEMOGLOBIN 29 pg (25-35); MEAN CORPUSCULAR HGB CONC 34 g/dL (31-37); MEAN CORPUSCULAR VOLUME 85 fL (79-100); MONO # 1.1 x10^3/uL (0.0-1.1); MONO % 12 % (0-9); NEUT # 4.9 x10^3uL (1.8-7.7); NEUT % 55 % (31-73); PLATELET COUNT 322 x10^3/uL (140-400); RED BLOOD COUNT 3.83 x10^6/uL (3.50-5.40); RED CELL DISTRIBUTION WIDTH 14.4 % (11.5-14.5); WHITE BLOOD COUNT 8.8 x10^3/uL (4.0-11.0)
[2016-10-19 06:56] LABS: ALBUMIN 3.5 g/dL (3.4-5.0); ALBUMIN/GLOBULIN RATIO 1.2 (1.0-1.7); CALCIUM 9.1 mg/dL (8.5-10.1); CREATININE 0.7 mg/dL (0.6-1.0); GFR 81.1; POTASSIUM 4.6 mmol/L (3.5-5.1); TOTAL BILIRUBIN 0.3 mg/dL (0.2-1.0); TOTAL PROTEIN 6.4 g/dL (6.4-8.2)
[2016-10-19 08:41] VITALS: BP 146/77
[2016-10-19] MEDS: CHOLECALCIFEROL (VITAMIN D3) 1,000 UNIT TABLET PO SCH (08:41)
[2016-10-19] MEDS: LISINOPRIL 20 MG TABLET PO SCH (08:41)
[2016-10-19] MEDS: MULTIVITAMIN with MINERAL TABLET. PO SCH (08:41)
[2016-10-19] MEDS: POLYETHYLENE GLYCOL 3350 17 GM PACKET. PO SCH (08:41)
[2016-10-19] MEDS: busPIRone 15 MG TABLET. PO SCH ×2 (08:41→12:54)
[2016-10-19] MEDS: ASPIRIN 81 MG TAB.CHEW PO SCH (08:41)
[2016-10-19] MEDS: traZODone 50 MG TABLET. PO SCH ×2 (08:42→12:54)
[2016-10-19] MEDS: DIVALPROEX 125 MG CAP.SPRINK PO SCH ×2 (08:43→12:53)
[2016-10-19] MEDS: NYSTATIN TOPICAL POWDER 15GM BOTTLE. TP SCH (08:43)
--- NOTE | 2016-10-19 09:16 | PN ---
DATE: 10/17/2016 SUBJECTIVE: This is a late entry 10/17/2016 covers elements not covered in my initial note. The patient remains somewhat anxious and attention seeking. Per nursing report received Ativan at 10:50 a.m. Trazodone will be started for anxiety 12.5 mg b.i.d. Labs to be checked on Monday morning. REVIEW OF SYSTEMS: Ambulation impaired in a wheelchair and shortness of breath on O2 supplements. No CV, , or GI system symptoms on review. MENTAL STATUS EXAM: Oriented to herself and situation. Speech coherent, abstraction fair, computation impaired, and language function intact. Mood and affect somewhat anxious and labile. LABORATORY DATA: Reviewed. 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 PLAN: Start trazodone 12.5 b.i.d. Maintain the rest of psychotropics. Adjust further as clinically indicated. CHARLINE VASQUEZ MD DR: KHUSHBOO/jacqueline JOB#: [id number] / [id number]
[2016-10-19] MEDS: BUDESONIDE 0.5 MG/2 ML NEBU NEB SCH (10:08)
[2016-10-19] MEDS: LORazepam 0.5 MG TABLET PO PRN (12:53)
--- NOTE | 2016-10-20 07:59 | PN ---
DATE: 10/18/2016 SUBJECTIVE: This is a late entry 10/18/2016, covers elements not covered in my initial note. The patient slept 5-3/4 hours previous night. Complains of being a little tired. Nursing staff checking with Dr. Todd on this. REVIEW OF SYSTEMS: Short of breath on O2 supplements and impaired ambulation in her wheelchair. No CV, , or GI system symptoms on review. MENTAL STATUS EXAM: Oriented to herself and situation. Speech has some latency, coherent, and less pressured. Abstraction fair, computation impaired, and language function intact. Mood and affect showing improved anxiety. LABORATORY DATA: Reviewed. IMPRESSION: Unchanged from initial note. PLAN: Continue psychotropics as mentioned in my initial note. MAN Ino VASQUEZ MD DR: KHUSHBOO/jacqueline JOB#: [id number] / [id number]
--- NOTE | 2016-10-21 23:50 | DS ---
DATE OF DISCHARGE: 10/19/2016 DISCHARGE SUMMARY/PSYCHIATRIC PROGRESS NOTE This is a late entry for 10/19/2016 covers elements not covered in my initial note. REASON FOR ADMISSION: Please refer to the admission history for details. Briefly, the patient is a 75-year-old female referred to us from [facility] on account of increasing anxiety, complaining of shaking inside, making statements she wishes she would get choked with her oxygen tubing. She had failed outpatient psychiatric interventions. Behaviors were deemed dangerous to herself, referred for inpatient stabilization. SIGNIFICANT FINDINGS AND CLINICAL COURSE: Following admission, the patient was seen daily individually by myself from a psychiatric standpoint and medical followup per Dr. Daniels/Dr. Todd. The patient is extremely anxious, restless, irritable, labile in her mood. Several changes were made in her psychotropics and she seemed to stabilize on a combination of melatonin 6 mg at bedtime, BuSpar 15 mg 3 times a day, Seroquel 100 mg at bedtime, 62.5 mg 3 times a day, Ativan p.r.n., trazodone 100 mg at bedtime p.r.n., Depakote 250 t.i.d., Zyprexa p.r.n. Zoloft was discontinued. She was having hyponatremia/symptoms of SIADH and was on [address] restriction [address] Todd. REVIEW OF SYSTEMS: Prior to discharge on 10/19/2016, ambulation impaired, in a wheelchair, shortness of breath, on O2 supplements. No CV, , GI, eye system symptoms on review. MENTAL STATUS EXAM: Oriented to herself and situation. Speech coherent, abstraction fair, computation impaired, short term memory is impaired. No active suicidal or homicidal ideation. LABORATORY DATA: Reviewed. FINAL DIAGNOSES: Major depressive disorder, recurrent, in partial remission; cognitive disorder, unspecified versus major neurocognitive disorder, early Alzheimer, vascular with depression, delusions; anxiety disorder, unspecified; impulse control disorder, unspecified. Rest diagnoses unchanged from admission. DISCHARGE MEDICATIONS: Please refer to the MRAD. DISCHARGE INSTRUCTIONS: Outpatient psychiatric and medical followup at the [place] [facility]. Time for discharge day management greater than 30 minutes. CHARLINE VASQUEZ MD DR: KHUSHBOO/jacqueline JOB#: [id number] / [id number]
== END 2016-10-19 13:23 | disposition short-term general hospital (02) | DRG 884 ==
LOC: ER 17:14 → GEROPSY 21:11
PROVIDERS: ADMIT Psychiatry & Neurology Psychiatry; ATTEND Psychiatry & Neurology Psychiatry
DX: F01.51 Vascular dementia, unspecified severity, with behavioral disturbance (principal); E87.1 Hypo-osmolality and hyponatremia; F02.81 Dementia in other diseases classified elsewhere, unspecified severity, with behavioral disturbance; J96.11 Chronic respiratory failure with hypoxia; J98.11 Atelectasis; E22.2 Syndrome of inappropriate secretion of antidiuretic hormone; F33.41 Major depressive disorder, recurrent, in partial remission; F41.9 Anxiety disorder, unspecified; J44.9 Chronic obstructive pulmonary disease, unspecified; G30.9 Alzheimer's disease, unspecified; F41.0 Panic disorder [episodic paroxysmal anxiety]; F63.9 Impulse disorder, unspecified; I11.0 Hypertensive heart disease with heart failure; I50.9 Heart failure, unspecified; E55.9 Vitamin D deficiency, unspecified; G47.00 Insomnia, unspecified; K59.09 Other constipation; R29.6 Repeated falls; R15.9 Full incontinence of feces; R35.0 Frequency of micturition; F09 Unspecified mental disorder due to known physiological condition; K21.9 Gastro-esophageal reflux disease without esophagitis; Z79.899 Other long term (current) drug therapy; Z87.891 Personal history of nicotine dependence; Z91.81 History of falling; Z98.41 Cataract extraction status, right eye; Z98.42 Cataract extraction status, left eye; Z88.1 Allergy status to other antibiotic agents; Z91.041 Radiographic dye allergy status; Z88.2 Allergy status to sulfonamides; Z88.8 Allergy status to other drugs, medicaments and biological substances; Z91.048 Other nonmedicinal substance allergy status; Z90.89 Acquired absence of other organs
CPT/HCPCS: 36415; 71010; 80053; 80061; 80164; 81001; 82306; 82550; 82607; 83036; 83540; 83550; 83735; 84436; 84443; 84480; 84484; 85027; 86592; 86593; 93005; 94620; 94640; 94760; G0481; J7613; J7626; 97110; 97116; 97530; 97535; 99285-25